=== PATIENT | male | born 1955 | race Hispanic/Latino ===

== ENCOUNTER 2017-08-20 12:31 | Outpatient (CLI) | payer MEDICARE ==
--- NOTE | 2017-08-20 14:04 | ULT ---
BILATERAL UPPER EXTREMITY VASCULAR DOPPLER ULTRASOUND: Date: 08/20/17 HISTORY: Vein mapping for dialysis access. TECHNIQUE: Multiplanar Atkins scale sonographic imaging of the upper extremity vascular structures obtained with color flow and spectral analysis as detailed below. FINDINGS: Right internal jugular vein is patent and contains a dialysis catheter. Bandaging material over the right subclavian vein region slightly limits detailed assessment. Visualized portions of right subcl jesse vein appear patent. Right axillary vein is patent as well. Left internal jugular vein, subclavian vein, and axillary vein are patent as well. VESSEL DIAMETER (mm) Right Brachial Artery 3.2 Right Radial Artery 2.9 Right Ulnar Artery 2.8 Left Brachial Artery 4.3 Left Radial Artery 2.6 Left Ulnar Artery 2.9 RIGHT CEPHALIC VEIN: Above Elbow Proximal Nonvisualized Above Elbow Mid Nonvisualized Above Elbow Distal Nonvisualized At Elbow Nonvisualized Below Elbow Proximal 1.2 Below Elbow Mid 1.9 Below Elbow Distal Nonvisualized RIGHT BASILIC VEIN: Above Elbow Proximal 2.7 Above Elbow Mid 2.5 Above Elbow Distal 2.2 At Elbow Nonvisualized Below Elbow Proximal Nonvisualized Below Elbow Mid Nonvisualized Below Elbow Distal Nonvisualized LEFT BASILIC VEIN: Above Elbow Proximal 3.2 Above Elbow Mid 2.3 Above Elbow Distal 2.9 At Elbow Nonvisualized Below Elbow Proximal Nonvisualized Below Elbow Mid Nonvisualized Below Elbow Distal Nonvisualized LEFT CEPHALIC VEIN: Above Elbow Proximal 2.0 Above Elbow Mid 1.7 Above Elbow Distal 1.6 At Elbow 1.9 Below Elbow Proximal 1.2 Below Elbow Mid Nonvisualized Below Elbow Distal Nonvisualized IMPRESSION: Upper extremity vascular mapping as detailed above. POS: [facility]
== END 2017-08-20 12:32 | disposition home or self-care (01) ==
LOC: ULT 12:31
PROVIDERS: ATTEND Internal Medicine Nephrology
DX: Z01.818 Encounter for other preprocedural examination (principal); N18.6 End stage renal disease; Z99.2 Dependence on renal dialysis
CPT/HCPCS: 93970; G0365

== ENCOUNTER 2017-09-11 10:44 | Inpatient (IN) | payer MEDICARE ==
[2017-09-11 11:45] LABS: #Monocytes 0.6 thou/uL (0.11-0.59); #Neutrophils 9.2 thou/uL (1.40-6.50); %Eosinophils 0.2 % (0.0-10.0); %Lymphocytes 9.3 % (21.0-51.0); %Monocytes 5.4 % (0.0-10.0); Hematocrit 46.8 % (42.0-52.0); Mean Platelet Volume 8.4 fL (7.4-10.4); Red Blood Cell (RBC) Count 5.34 mill/uL (4.70-6.10); White Blood Cell (WBC) Count 10.8 thou/uL (4.8-10.8)
[2017-09-11] MEDS ORDERED: Dextrose 50% Abboject 50 ML SYRINGE ONE ×3 (11:59→15:03)
[2017-09-11 12:01] LABS: ALT (SGPT) 19 U/L (8-55); AST (SGOT) 16 U/L (5-34); Alkaline Phosphatase 133 U/L (40-150); Anion Gap 20 mmol/L (10-20); BUN (Urea Nitrogen) 92 mg/dL (8.4-25.7); Bilirubin, Total 0.2 mg/dL (0.2-1.2); Calc. Creatinine Clearance 0 mL/min (70-130); Calcium 9.9 mg/dL (7.8-10.44); Carbon Dioxide 12 mmol/L (23-31); Chloride 103 mmol/L (98-107); Estimated GFR-MDRD 5; Globulin 4.9 g/dL (2.4-3.5); Protein, Total 8.6 g/dL (5.8-8.1)
[2017-09-11] MEDS ORDERED: Sodium Bicarb 50 MEQ/50 ML Abboject 8.4% SYRINGE ONE ×2 (12:35→12:37)
[2017-09-11] MEDS ORDERED: Insulin Regular 300 UNITS/3 ML VIAL ONE (12:35)
--- NOTE | 2017-09-11 14:45 | RAD ---
PORTABLE AP CHEST: Date: 09-11-17 History: Altered mental status post hyperglycemia. Comparison: 07-21-17 FINDINGS: Right internal jugular and hemodialysis catheter remains in place. Cardiac silhouette and pulmonary vasculature are within normal limits. Artifact overlies the chest, but the lungs appear grossly brian r. There has been no interval change from the prior exam. IMPRESSION: No acute cardiopulmonary process. POS: [facility]
--- NOTE | 2017-09-11 15:57 | HP ---
PRIMARY CARE PHYSICIAN: Dr. Gregg Robbins. REASON FOR ADMISSION: Hypoglycemia, hyperkalemia. HISTORY OF PRESENT ILLNESS: A 62-year-old male who has history of end-stage renal disease on hemodialysis Sunday, , and Sunday, who was brought to the emergency room for low blood sugar and hyperkalemia. This patient was supposed to get dialysis at 11:00 a.m. today, but he was found down at his home. His blood sugar was low. Paramedics gave him 1 ampule of D10 after that hi s blood sugar improved to 110s. Subsequently, when he came to emergency room, his blood sugar again dropped to 70s and subsequently 50s. He required a total of 3 ampules of D50. Routine blood test also showed hyperkalemia. I spoke with the patient's sister who is main medicine tech for this particular patient, who reports teofilo t about 2 weeks ago the patient was given new diabetes pills and patient was taking half tablet ever y day. The patient did not miss his lunch or break. He does not have any fever, chills, nausea, vomiting, diarrhea and abdominal pain. He did not have any chest pain, palpitation, cough or flu-like illness. REVIEW OF SYSTEMS: The following complete review of systems was negative, unless otherwise mentione d in the HPI or below: CONSTITUTIONAL: Weight loss or gain, ability to conduct usual activities. SKIN: Rash, itching. EYES: Double vision, pain. ENT/MOUTH: Nose bleeding, neck stiffness, pain, tenderness. CARDIOVASCULAR: Palpitations, dyspnea on exertion, orthopnea. RESPIRATORY: Shortness of breath, wheezing, cough, hemoptysis, fever or night sweats. GASTROINTESTINAL: Poor appetite, abdominal pain, heartburn, nausea, vomiting, constipation, or diar charley. GENITOURINARY: Urgency, frequency, dysuria, nocturia. MUSCULOSKELETAL: Pain, swelling. NEUROLOGIC/PSYCHIATRIC: Anxiety, depression. ALLERGY/IMMUNOLOGIC: Skin rash, bleeding tendency. Please see my HPI for pertinent positives and negatives. All other review of system reviewed and ne gative except as mentioned in the HPI. PAST MEDICAL HISTORY: ESRD on hemodialysis Sunday, , and Sunday, chronic diastolic heart failure, peripheral vascular disease, anemia of renal disease, diabetes type 2, hypertension. PAST SURGICAL HISTORY: Right below-knee amputation, right side chest tunneled hemodialysis catheter placement, colostomy. PAST PSYCHIATRIC HISTORY: Anxiety and depression. ALLERGIES: No known drug allergy. FAMILY HISTORY: Diabetes runs among several family members. No strong family history of premature coronary artery disease, stroke or cancer. SOCIAL HISTORY: Patient lives at home with his sister. No history of tobacco, alcohol or illicit d rug abuse. CURRENT HOME MEDICATIONS: Zoloft 25 mg p.o. daily, Lipitor 40 mg p.o. at bedtime, midodrine 5 mg 3 times daily, lisinopril 2.5 mg daily, Iron 65 mg twice daily, metoprolol tartrate 25 mg p.o. b.i.d., Reglan 10 mg twice daily and patient does not know the name of diabetes pill, but it was started re cently. EMERGENCY ROOM COURSE: Patient has received dextrose 50% 3 ampule, calcium gluconate 1 ampule, sodi um bicarbonate 50 mEq and Humulin R 10 unit. PHYSICAL EXAMINATION: VITAL SIGNS: On arrival, blood pressure 141/81, pulse 89, respiratory rate 20, temperature 97.6, sa turation 96% on room air. Weight 58.9 kilograms. GENERAL: Patient is currently alert, awake, follows command, no obvious acute distress. HEAD: Normocephalic, atraumatic. EYES: Pupils round, reactive to light. Extraocular muscles intact. ENT: Oropharynx within normal limits. Moist mucous membranes. No oral lesions. No pharyngeal ruth thema, no exudate. NECK: Supple. Range of motion is normal. No meningeal signs of irritation. LUNGS: Clear to auscultation without any rhonchi or rales. CARDIAC: S1, S2 regular without any murmur. ABDOMEN: Soft, bowel sounds present, nontender, nondistended. No peritoneal sign. BACK: Unremarkable, no CVA tenderness. EXTREMITIES: Upper extremity: Passive movement of all joints are normal. Lower extremity: Right below knee amputation. Left lower extremity within normal limits. NEUROLOGIC: Grossly nonfocal examination. He is moving all 4 limbs. SKIN: No skin rash. HEMATOLOGIC: No lymphadenopathy. PSYCHIATRIC: Normal affect. SIGNIFICANT LABS: 1. EKG based on my review, normal sinus rhythm, first degree AV block, T-wave peaked. 2. CBC: WBC 10.8, hemoglobin 14.1, platelet 285 with a left shift. BMP: Sodium 127, potassium 7. 9, chloride 103, carbon dioxide 12, anion gap 20, BUN 92, creatinine 10.45, glucose 77 and calcium 9 .9. 3. LFT: AST 16, ALT 19, alkaline phosphatase 133, albumin 3.7. IMAGING: Chest x-ray based on my review, no acute cardiopulmonary process. ASSESSMENT AND PLAN/IMPRESSION: 1. Acute metabolic encephalopathy likely due to hypoglycemia, currently resolved after treatment fo r hypoglycemia. 2. Hypoglycemia associated with diabetes type, secondary to oral diabetic medication. At this poin t, we will watch for hypoglycemia. We will monitor Accu-Chek every couple of hours and as needed ba sis. If blood sugar drops below 70, then we will consider giving him D50. We will avoid any diabet es medication. 3. Hyperkalemia due to decreased renal excretion secondary to end-stage renal disease. Dr. Chadwick is consulted and patient will be taken for hemodialysis. We will repeat BMP tomorrow. The patient is also taking lisinopril that medication will be discontinued and instead will change to amlodipine. 4. Dyslipidemia. We will continue Lipitor 40 mg p.o. at bedtime. 5. Hypertension, labile. We will discontinue lisinopril because of hyperkalemia and instead will s tart amlodipine 2.5 mg p.o. daily. We will continue metoprolol 25 mg twice daily. 6. Anxiety and depression. We will continue Zoloft 25 mg p.o. daily. 7. Anemia of renal disease. Currently, hemoglobin is stable. 8. Metabolic acidosis, likely due to renal failure. 9. Hyponatremia, likely due to renal failure. 10. Deep venous thrombosis prophylaxis not needed because we are expecting discharge in 24 hours. 11. Gastrointestinal prophylaxis, Protonix 40 mg p.o. daily. 12. CODE STATUS: The patient is FULL CODE. Patient's sister is the surrogate decision maker. Disposition plan based on clinical course, likely within 24 hours.
[2017-09-11 16:35] LABS: ALT (SGPT) 20 U/L (8-55); AST (SGOT) 17 U/L (5-34); Alkaline Phosphatase 114 U/L (40-150); Anion Gap 19 mmol/L (10-20); BUN (Urea Nitrogen) 94 mg/dL (8.4-25.7); Bilirubin, Total 0.2 mg/dL (0.2-1.2); Calc. Creatinine Clearance 0 mL/min (70-130); Calcium 10.4 mg/dL (7.8-10.44); Carbon Dioxide 14 mmol/L (23-31); Chloride 103 mmol/L (98-107); Estimated GFR-MDRD 5; Globulin 4.4 g/dL (2.4-3.5); Protein, Total 7.9 g/dL (5.8-8.1)
[2017-09-11] MEDS ORDERED: Chloraseptic Spray 180 ml Bottle PO PRN (18:18)
[2017-09-11] MEDS ORDERED: Ondansetron HCl/PF 4 MG/2 ML Vial IVP PRN (18:18)
[2017-09-11] MEDS ORDERED: Artificial Tear Sol 15 ML BOT EA EYE PRN (18:18)
[2017-09-11] MEDS ORDERED: Milk Of Magnesia 30 ML UDCUP PO PRN (18:18)
[2017-09-11] MEDS ORDERED: Loperamide HCl 2 MG CAP PO PRN (18:18)
[2017-09-11] MEDS ORDERED: Dextrose 5% in Water 1,000 ML IV PRN (18:18)
[2017-09-11] MEDS ORDERED: Nitroglycerin 0.4 MG TAB (25 Tab Bottle) SL PRN (18:18)
[2017-09-11] MEDS ORDERED: Sodium Chloride 0.65% Nasal 44 ML BOT EA NARE PRN (18:18)
[2017-09-11] MEDS ORDERED: Loratadine 10 MG TAB PO PRN (18:18)
[2017-09-11] MEDS ORDERED: Eucerin (Mineral Oil/Petrolatum,White) 30 gm Jar TOP PRN (18:18)
[2017-09-11] MEDS ORDERED: Senokot 8.6 MG TAB PO PRN (18:18)
[2017-09-11] MEDS ORDERED: Acetaminophen 325 MG TAB PO PRN (18:18)
[2017-09-11] MEDS ORDERED: Mag-Al 1200 mg/1200 mg/30 ML UDCUP PO PRN (18:18)
[2017-09-11] MEDS ORDERED: hydrALAZINE 20 MG/ML VIAL SLOW IVP PRN (18:18)
[2017-09-11] MEDS ORDERED: Dextrose 50% Abboject 50 ML SYRINGE SLOW IVP PRN (18:18)
[2017-09-11] MEDS ORDERED: Diabetic Tussin 200 MG/10 ML UDCUP PO PRN (18:18)
[2017-09-11] MEDS ORDERED: Ondansetron ODT 4 MG TAB PO PRN (18:18)
[2017-09-11] MEDS ORDERED: Calcium Carbonate 500 MG ChewTAB PO PRN (18:18)
[2017-09-11] MEDS ORDERED: Metoclopramide HCl 10 MG TAB PO PRN (18:18)
--- NOTE | 2017-09-11 20:26 | CON ---
DATE OF CONSULTATION: 09/11/2017 CONSULTING PHYSICIAN: Dr. Gonsalez. REASON FOR CONSULTATION: Hyperkalemia, end-stage renal disease. REASON FOR ADMISSION: Hyperglycemia. HISTORY OF PRESENT ILLNESS: A 62-year-old male with history of end-stage renal disease, CH F, peripheral vascular disease, who came to the hospital with hypertension. The patient was not wak ing up per the family this morning. He is due for dialysis Sunday, , and Sunday, and the salt cutter consult for maintenance hemodialysis. The patient is feeling better, no nausea, vomit ing, or chest pain. He said he has been eating well. No skin rash. PAST MEDICAL HISTORY: Positive for end-stage renal disease, CHF, peripheral vascular disease, anemi a, type 2 diabetes, hypertension. PAST SURGICAL HISTORY: Right [id number] amputation and dialysis access placement, colostomy. HOME MEDICATIONS: Zoloft, Lipitor, midodrine, lisinopril, iron, Reglan. ALLERGIES: No known drug allergies. SOCIAL HISTORY: No smoking, alcohol or illicit drug abuse. FAMILY HISTORY: No significant history. REVIEW OF SYSTEMS: The following complete review of systems was negative, unless otherwise mentione d in the HPI or below: Constitutional: Weight loss or gain, ability to conduct usual activities. Skin: Rash, itching. Eyes: Double vision, pain. ENT/Mouth: Nose bleeding, neck stiffness, pain, tenderness. Cardiovas cular: Palpitations, dyspnea on exertion, orthopnea. Respiratory: Shortness of breath, wheezing, cough, hemoptysis, fever or night sweats. Gastrointestinal: Poor appetite, abdominal pain, heartbu rn, nausea, vomiting, constipation, or diarrhea. Genitourinary: Urgency, frequency, dysuria, noctu mya. Musculoskeletal: Pain, swelling. Neurologic/Psychiatric: Anxiety, depression. Allergy/Immu nologic: Skin rash, bleeding tendency. PHYSICAL EXAMINATION: GENERAL: This is a well-built male in no apparent distress. VITAL SIGNS: Temperature 95.6, pulse 89, respiratory rate 20, blood pressure 141/81. HEENT: Atraumatic, normocephalic. Oral mucosa is moist. NECK: Supple, no masses. CARDIOVASCULAR: S1, S2 heard. Rate and rhythm regular. RESPIRATORY: Clear. ABDOMEN: Soft. MUSCULOSKELETAL: No tenderness. No edema. DERMATOLOGIC: No skin rash. NEUROLOGIC: Alert and awake. PSYCHIATRIC: Mood and affect normal. LABORATORY AND X-RAY FINDINGS: Hemoglobin is 14.1, potassium is 7.5, BUN is 94, creatinine is 7.8. ASSESSMENT AND PLAN: 1. End-stage renal disease with hyperkalemia. Plan is to have emergent dialysis. 2. Severe hyperkalemia. We will have emergent dialysis. 3. Hyponatremia. 4. Hyperglycemia. 5. Hypertension, stable. 6. Hypoalbuminemia. 7. Anemia as tolerated if hemoglobin is less than 10. Plan is to have emergent dialysis. Dialysis nurse notified. We will keep patient in IMCU and close ly monitor while dialysis and we will follow. Thank you for the consultation.
[2017-09-11] MEDS: Atorvastatin Calcium 40 MG TAB PO SCH ×2 (21:18→23:58)
[2017-09-11] MEDS: Metoprolol Tartrate 25 MG TAB PO SCH ×2 (21:19→23:58)
[2017-09-11] MEDS: Midodrine HCl 5 MG TAB PO SCH (21:19)
[2017-09-12 05:04] LABS: #Eosinphils 0.1 thou/uL (0.0-0.7); #Lymphocytes 1.3 thou/uL (1.20-3.40); #Monocytes 0.7 thou/uL (0.11-0.59); #Neutrophils 5.2 thou/uL (1.40-6.50); %Basophils 0.4 % (0.0-1.0); %Eosinophils 1.2 % (0.0-10.0); %Lymphocytes 18.1 % (21.0-51.0); %Monocytes 9.6 % (0.0-10.0); Hematocrit 37.3 % (42.0-52.0); Mean Platelet Volume 8.1 fL (7.4-10.4); Red Blood Cell (RBC) Count 4.39 mill/uL (4.70-6.10); White Blood Cell (WBC) Count 7.4 thou/uL (4.8-10.8)
[2017-09-12 05:15] LABS: Anion Gap 16 mmol/L (10-20); BUN (Urea Nitrogen) 42 mg/dL (8.4-25.7); BUN/Creatinine Ratio 6.75; Calc. Creatinine Clearance 11 mL/min (70-130); Carbon Dioxide 20 mmol/L (23-31); Chloride 99 mmol/L (98-107); Estimated GFR-MDRD 9; Phosphorus 3.5 mg/dL (2.3-4.7)
[2017-09-12] MEDS: Midodrine HCl 5 MG TAB PO SCH ×4 (08:42→21:11)
[2017-09-12] MEDS: Metoprolol Tartrate 25 MG TAB PO SCH ×2 (08:42→21:11)
[2017-09-12] MEDS ORDERED: FLU VACC QS2017-18 36 mo. & older 0.5 ML SYRINGE IM ONE (09:00)
[2017-09-12] MEDS: Amlodipine 5 MG TAB PO SCH (10:21)
--- NOTE | 2017-09-12 10:57 | PDOC.PN ---
- Subjective Encounter Start Date: 09/12/17 Encounter Start Time: 08:45 -: old records requested/rev Pt seen and exmained, chart reviewe din its entirety, this is my first visit with this patient admitted yesterday for SOB, AMs, hyperkalemia. PT tells me today he hadmissed HD. HD yesterday, labs better today, to HD this morning. Pt awkae, alert and oriented x 3. breathing markedly better. Got Calcium gluconate, nebs, insulin in ER for elevated K+, remained hypoglycemic all day yesterday, on D5 drip. today, glucose much better. No F/C, no N/V/d/C, no cP or SOB, no cough and no GI/resp bleeding. 10 point ROS performed and neg for all systems except as per HPI - Objective Resuscitation Status: Resuscitation Status FULL:Full Resuscitation MAR Reviewed: Yes Vital Signs & Weight: Vital Signs (12 hours) Temp Pulse Resp BP Pulse Ox 09/12/17 10:21 86 09/12/17 08:00 98.0 F 86 20 100 09/12/17 04:00 98.0 F 86 20 99/55 L 100 09/12/17 00:00 97.8 F 91 22 H 100/65 100 Weight Weight 145 lb 3 oz I&O: 09/11/17 09/12/17 09/13/17 06:59 06:59 06:59 Intake Total 240 Output Total 450 Balance -210 Result Diagrams: 09/12/17 04:23 09/12/17 04:23 Additional Labs: Accuchecks 09/12/17 09/12/17 09/12/17 08:34 05:43 04:03 POC Glucose 101 96 137 H 09/12/17 09/12/17 09/11/17 02:07 00:08 22:19 POC Glucose 110 103 96 09/11/17 20:59 POC Glucose 94 Radiology Reviewed by me: Yes EKG Reviewed by me: Yes Phys Exam - Physical Examination Constitutional: NAD HEENT: PERRLA, moist MMs, sclera anicteric, oral pharynx no lesions Neck: no nodes, no JVD, supple, full ROM Respiratory: no wheezing, no rhonchi, clear to auscultation bilateral faint bibasilar rales Cardiovascular: RRR, no significant murmur, no rub Gastrointestinal: soft, non-tender, no distention, positive bowel sounds Musculoskeletal: no edema, pulses present Neurological: non-focal, normal sensation, moves all 4 limbs Lymphatic: no nodes Psychiatric: normal affect, A&O x 3 Skin: no rash, normal turgor, cap refill <2 seconds Dx/Plan (1) Acute hypoxemic respiratory failure Code(s): J96.01 - ACUTE RESPIRATORY FAILURE WITH HYPOXIA Status: Acute Plan: 100% on 2L NC, wean (2) Noncompliance with renal dialysis Code(s): Z91.15 - PATIENT'S NONCOMPLIANCE WITH RENAL DIALYSIS Status: Acute Comment: HD yesterdya adn today, volume better, electrolytes almost normalized (3) HTN (hypertension) Code(s): I10 - ESSENTIAL (PRIMARY) HYPERTENSION Status: Chronic Qualifiers: Hypertension type: essential hypertension Qualified Code(s): I10 - Essential (primary) hypertension (4) Pressure ulcer of sacral region, stage 4 Code(s): L89.154 - PRESSURE ULCER OF SACRAL REGION, STAGE 4 Status: Acute Comment: improved, present on admit. CCM with wound care. Sacral. Listed as stage III, but once present, will always be a stage IV. Even after it is healed. (5) Uncontrolled diabetes mellitus Code(s): E11.65 - TYPE 2 DIABETES MELLITUS WITH HYPERGLYCEMIA Status: Chronic Qualifiers: Diabetes mellitus type: type 2 Diabetes mellitus complication status: with circulatory complication Diabetes mellitus complication detail: with other circulatory complications Diabetes mellitus half-way insulin use: with half-way use Qualified Code(s): E11.59 - Type 2 diabetes mellitus with other circulatory complications; E11.65 - Type 2 diabetes mellitus with hyperglycemia ; E11.65 - Type 2 diabetes mellitus with hyperglycemia; E11.65 - Type 2 diabetes mellitus with hyperglycemia; E11.65 - Type 2 diabetes mellitus with hyperglycemia; Z79.4 - senior care (current) use of insulin; Z79.4 - senior care ( current) use of insulin; Z79.4 - [employer] (current) use of insulin; Z79.4 - senior care (current) use of insulin (6) ESRD (end stage renal disease) on dialysis Code(s): N18.6 - END STAGE RENAL DISEASE; Z99.2 - DEPENDENCE ON RENAL DIALYSIS Status: Chronic (7) Peripheral vascular disease Code(s): I73.9 - PERIPHERAL VASCULAR DISEASE, UNSPECIFIED Status: Chronic (8) Hyperkalemia Code(s): E87.5 - HYPERKALEMIA Status: Resolved - Plan cont current plan of care * .
[2017-09-12] MEDS: Dextrose 10% in Water 1,000 ML IV SCH (15:47)
--- NOTE | 2017-09-12 16:10 | PRG ---
DATE OF SERVICE: 09/12/2017 SUBJECTIVE: Patient was seen and examined at bedside and overnight events noted. Patient denies an y shortness of breath or chest pain or palpitation. No history of nausea or vomiting or diarrhea or fever or chills or cramps. OBJECTIVE: GENERAL: This is a well-built male in no apparent distress. VITAL SIGNS: Temperature 98.4, pulse 91, respiratory rate 18, blood pressure 109/59. HEENT: Atraumatic, normocephalic. Oral mucosa is moist. NECK: Supple. CARDIOVASCULAR: S1 and S2 heard, rate and rhythm regular. RESPIRATORY: Clear to auscultation. GASTROINTESTINAL: Abdomen is soft. MUSCULOSKELETAL: No tenderness, no edema. DERMATOLOGIC: No skin rash. NEUROLOGIC: Alert and awake and oriented X3. No focal neurologic deficits. Moving all the extremi ties. PSYCHIATRIC: Mood and affect normal. LABORATORY DATA: Potassium is 5.4, BUN is 42, creatinine is 6.2. ASSESSMENT AND PLAN: 1. End-stage renal disease. We will have dialysis today. 2. Hyperkalemia, had dialysis today. Limit potassium. 3. Hyponatremia. 4. Hyperglycemia. We will continue on dialysis as tolerated.
[2017-09-12] MEDS ORDERED: Sodium Chloride 0.9% 10 ML ONE (19:45)
[2017-09-12] MEDS: Atorvastatin Calcium 40 MG TAB PO SCH (21:11)
[2017-09-13] MEDS: Dextrose 10% in Water 1,000 ML IV SCH ×2 (04:23→20:58)
[2017-09-13 05:18] LABS: #Basophils 0.1 thou/uL (0.0-0.2); #Eosinphils 0.2 thou/uL (0.0-0.7); #Lymphocytes 1.5 thou/uL (1.20-3.40); #Monocytes 0.7 thou/uL (0.11-0.59); %Basophils 1.9 % (0.0-1.0); %Eosinophils 3.8 % (0.0-10.0); %Lymphocytes 26.5 % (21.0-51.0); %Monocytes 13.2 % (0.0-10.0); Hematocrit 38.6 % (42.0-52.0); Mean Platelet Volume 8.2 fL (7.4-10.4); Red Blood Cell (RBC) Count 4.54 mill/uL (4.70-6.10); White Blood Cell (WBC) Count 5.5 thou/uL (4.8-10.8)
[2017-09-13 05:32] LABS: Anion Gap 16 mmol/L (10-20); BUN (Urea Nitrogen) 38 mg/dL (8.4-25.7); Calc. Creatinine Clearance 12 mL/min (70-130); Calcium 8.6 mg/dL (7.8-10.44); Carbon Dioxide 18 mmol/L (23-31); Chloride 99 mmol/L (98-107); Estimated GFR-MDRD 9
[2017-09-13] MEDS: Midodrine HCl 5 MG TAB PO SCH ×3 (08:13→20:00)
[2017-09-13] MEDS: Amlodipine 5 MG TAB PO SCH (08:30)
[2017-09-13] MEDS: Metoprolol Tartrate 25 MG TAB PO SCH ×2 (08:30→20:00)
--- NOTE | 2017-09-13 10:09 | PDOC.PN ---
- Subjective Encounter Start Date: 09/13/17 Encounter Start Time: 08:00 Pt back in dialysis today for full treatment, plan to remove 1900cc UF. No F/C , no n/V/D/C, no CP, no SOB, accuchecks normal and stabilized. 10 point ROS performed and neg except as above - Objective Resuscitation Status: Resuscitation Status FULL:Full Resuscitation MAR Reviewed: Yes Vital Signs & Weight: Vital Signs (12 hours) Temp Pulse Resp BP Pulse Ox 09/13/17 04:20 97.6 F 69 16 149/74 H 100 09/13/17 04:17 100 09/13/17 00:00 97.9 F 70 16 136/65 100 Weight Admit Weight 144 lb 6.4 oz Weight 159 lb 11.2 oz I&O: 09/12/17 09/13/17 09/14/17 06:59 06:59 06:59 Intake Total 240 1580 Output Total 450 925 Balance -210 655 Result Diagrams: 09/13/17 04:52 09/13/17 04:52 Additional Labs: Accuchecks 09/13/17 09/13/17 09/12/17 04:25 00:03 20:26 POC Glucose 148 H 179 H 121 H 09/12/17 16:40 POC Glucose 126 H Radiology Reviewed by me: Yes EKG Reviewed by me: Yes Phys Exam - Physical Examination Constitutional: NAD HEENT: PERRLA, moist MMs, sclera anicteric, oral pharynx no lesions Neck: no nodes, no JVD, supple, full ROM Respiratory: no wheezing, no rales, no rhonchi, clear to auscultation bilateral Cardiovascular: RRR, no significant murmur, no rub Gastrointestinal: soft, non-tender, no distention, positive bowel sounds Musculoskeletal: no edema, pulses present right BKA Neurological: non-focal, normal sensation Lymphatic: no nodes Psychiatric: normal affect, A&O x 3 Skin: no rash, normal turgor, cap refill <2 seconds Deviation from normal: [facility] C/D/I Dx/Plan (1) Acute hypoxemic respiratory failure Code(s): J96.01 - ACUTE RESPIRATORY FAILURE WITH HYPOXIA Status: Resolved Comment: likely fluid overload (2) Noncompliance with renal dialysis Code(s): Z91.15 - PATIENT'S NONCOMPLIANCE WITH RENAL DIALYSIS Status: Acute Comment: HD now on third day in a row, normal session today. Volume better, electrolytes almost normalized, K+ 5.2, sodium low (3) HTN (hypertension) Code(s): I10 - ESSENTIAL (PRIMARY) HYPERTENSION Status: Chronic Qualifiers: Hypertension type: essential hypertension Qualified Code(s): I10 - Essential (primary) hypertension (4) Pressure ulcer of sacral region, stage 4 Code(s): L89.154 - PRESSURE ULCER OF SACRAL REGION, STAGE 4 Status: Acute Comment: improved, present on admit. [facility] with wound care. Sacral. Listed as stage III, but once present, will always be a stage IV. Even after it is healed. 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 [employer] insulin use: with equipment operator [employer] yard use Qualified Code(s): E11.59 - Type 2 diabetes mellitus with other circulatory complications; E11.65 - Type 2 diabetes mellitus with hyperglycemia ; E11.65 - Type 2 diabetes mellitus with hyperglycemia; E11.65 - Type 2 diabetes mellitus with hyperglycemia; E11.65 - Type 2 diabetes mellitus with hyperglycemia; Z79.4 - equipment [employer] (current) use of insulin; Z79.4 - equipment operator intermodal yard ( current) use of insulin; Z79.4 - equipment operator intermodal yard (current) use of insulin; Z79.4 - equipment operator intermodal yard (current) use of insulin Comment: sugars normal, back of to AC/HS. (6) ESRD (end stage renal disease) on dialysis Code(s): N18.6 - END STAGE RENAL DISEASE; Z99.2 - DEPENDENCE ON RENAL DIALYSIS Status: Chronic (7) Peripheral vascular disease Code(s): I73.9 - PERIPHERAL VASCULAR DISEASE, UNSPECIFIED Status: Chronic (8) Hyperkalemia Code(s): E87.5 - HYPERKALEMIA Status: Resolved Comment: 5.2 today - Plan cont current plan of care * .
[2017-09-13] MEDS: Atorvastatin Calcium 40 MG TAB PO SCH (20:00)
--- NOTE | 2017-09-13 20:50 | PRG ---
DATE OF SERVICE: 09/13/2017 SUBJECTIVE: Patient was seen and examined at bedside and overnight events noted. Patient denies an y shortness of breath or chest pain or palpitation. No history of nausea or vomiting or diarrhea or fever or chills or cramps. OBJECTIVE: GENERAL: This is a well-built male, in no apparent distress. VITAL SIGNS: Temperature 97.6, pulse 69, respirations 16, blood pressure 149/74. HEENT: Atraumatic, normocephalic. Oral mucosa is moist. NECK: Supple CARDIOVASCULAR: S1, S2 heard. Rate and rhythm regular. RESPIRATORY: Clear to auscultation GASTROINTESTINAL: Abdomen is soft MUSCULOSKELETAL: No tenderness. No edema. DERMATOLOGIC: No skin rash. NEUROLOGIC: Alert and awake and oriented X3. No focal neurologic deficits. Moving all the extremi ties. PSYCHIATRIC: Mood and affect normal. LABORATORY DATA: Potassium is 5.2, BUN is 38, creatinine is 6.2. ASSESSMENT AND PLAN: 1. End-stage renal disease, on hemodialysis. Plan is to continue on dialysis. 2. Hyperkalemia. We will have a dialysis. 3. Hyponatremia. . 4. Hyperglycemia. Overall, plan is to continue on dialysis as tolerated.
[2017-09-14 05:38] LABS: #Eosinphils 0.3 thou/uL (0.0-0.7); #Lymphocytes 1.6 thou/uL (1.20-3.40); #Monocytes 0.7 thou/uL (0.11-0.59); #Neutrophils 3.7 thou/uL (1.40-6.50); %Eosinophils 4.1 % (0.0-10.0); %Lymphocytes 25.4 % (21.0-51.0); %Monocytes 10.8 % (0.0-10.0); Hematocrit 41.8 % (42.0-52.0); Mean Platelet Volume 8.5 fL (7.4-10.4); Red Blood Cell (RBC) Count 4.91 mill/uL (4.70-6.10); White Blood Cell (WBC) Count 6.2 thou/uL (4.8-10.8)
[2017-09-14 05:45] LABS: Anion Gap 13 mmol/L (10-20); BUN (Urea Nitrogen) 29 mg/dL (8.4-25.7); BUN/Creatinine Ratio 5.53; Calc. Creatinine Clearance 15 mL/min (70-130); Calcium 8.7 mg/dL (7.8-10.44); Carbon Dioxide 21 mmol/L (23-31); Chloride 96 mmol/L (98-107); Estimated GFR-MDRD 11
--- NOTE | 2017-09-14 09:29 | PRG ---
DATE OF SERVICE: 09/14/2017 SUBJECTIVE: Patient was seen and examined at bedside and overnight events noted. Patient denies an y shortness of breath or chest pain or palpitation. No history of nausea or vomiting or diarrhea or fever or chills or cramps. OBJECTIVE: GENERAL: This is a well built male, in no apparent distress. VITAL SIGNS: Temperature 97.9, pulse 72, respiratory rate 14, blood pressure 163/78. HEENT: Atrauma tic, normocephalic. Oral mucosa is moist. NECK: Supple. CARDIOVASCULAR: S1, S2 heard. Rate and rhythm regular. RESPIRATORY: Clear to auscultation. GASTROINTESTINAL: Abdomen is soft. MUSCULOSKELETAL: No tenderness, no edema. DERMATOLOGIC: No skin rash. NEUROLOGIC: Alert and awake and oriented x3. No focal neurologic deficits. Moving all the extremi ties. PSYCHIATRIC: Mood and affect normal. LABORATORY DATA: Potassium is 4.9, BUN 29, creatinine 4.2. ASSESSMENT AND PLAN: 1. End-stage renal disease on dialysis. We will continue on dialysis, TTS as tolerated. 2. Hyponatremia, limit fluid. 3. Hyperkalemia, better. 4. Hypoglycemia. 5. We will continue on dialysis as tolerated.
[2017-09-14] MEDS: Amlodipine 5 MG TAB PO SCH (09:33)
[2017-09-14] MEDS: Metoprolol Tartrate 25 MG TAB PO SCH ×2 (09:34→20:15)
[2017-09-14] MEDS: Midodrine HCl 5 MG TAB PO SCH ×3 (09:34→20:15)
--- NOTE | 2017-09-14 12:54 | PDOC.PN ---
- Subjective Encounter Start Date: 09/14/17 Encounter Start Time: 10:30 Subjective: no sob, is awake and oriented -: no chest pain or palp - Objective Resuscitation Status: Resuscitation Status FULL:Full Resuscitation MAR Reviewed: Yes Vital Signs & Weight: Vital Signs (12 hours) Temp Pulse Resp BP Pulse Ox 09/14/17 11:30 98.6 F 75 16 165/86 H 99 09/14/17 09:33 72 09/14/17 07:50 97.9 F 72 14 174/85 H 99 09/14/17 04:00 97.6 F 70 20 163/78 H 98 09/14/17 02:42 98 Weight Admit Weight 144 lb 6.4 oz Weight 160 lb 2 oz I&O: 09/13/17 09/14/17 09/15/17 06:59 06:59 06:59 Intake Total 1580 2040 Output Total 925 3500 Balance 655 -1460 Result Diagrams: 09/14/17 05:00 09/14/17 05:00 Additional Labs: Accuchecks 09/14/17 09/14/17 09/14/17 08:10 04:37 00:06 POC Glucose 128 H 117 H 149 H 09/13/17 09/13/17 21:04 17:09 POC Glucose 162 H 187 H Phys Exam - Physical Examination HEENT: PERRLA, moist MMs Neck: no JVD, supple Respiratory: no wheezing, no rales Cardiovascular: RRR, no significant murmur Gastrointestinal: soft, non-tender, positive bowel sounds Musculoskeletal: pulses present right bka Neurological: non-focal, moves all 4 limbs Psychiatric: A&O x 3 Dx/Plan (1) Volume overload Code(s): E87.70 - FLUID OVERLOAD, UNSPECIFIED Status: Acute (2) Noncompliance with renal dialysis Code(s): Z91.15 - PATIENT'S NONCOMPLIANCE WITH RENAL DIALYSIS Status: Acute (3) Hyponatremia Code(s): E87.1 - HYPO-OSMOLALITY AND HYPONATREMIA Status: Acute (4) Normocytic anemia Code(s): D64.9 - ANEMIA, UNSPECIFIED Status: Chronic (5) Pressure ulcer of sacral region, stage 4 Code(s): L89.154 - PRESSURE ULCER OF SACRAL REGION, STAGE 4 Status: Chronic (6) Diabetes mellitus type 2 in nonobese Code(s): E11.9 - TYPE 2 DIABETES MELLITUS WITHOUT COMPLICATIONS Status: Chronic (7) ESRD (end stage renal disease) on dialysis Code(s): N18.6 - END STAGE RENAL DISEASE; Z99.2 - DEPENDENCE ON RENAL DIALYSIS Status: Chronic (8) HTN (hypertension) Code(s): I10 - ESSENTIAL (PRIMARY) HYPERTENSION Status: Chronic Qualifiers: Hypertension type: essential hypertension Qualified Code(s): I10 - Essential (primary) hypertension (9) Peripheral vascular disease Code(s): I73.9 - PERIPHERAL VASCULAR DISEASE, UNSPECIFIED Status: Chronic (10) Hyperkalemia Code(s): E87.5 - HYPERKALEMIA Status: Resolved - Plan dc D10 drip, encourage po intake -: watch for hypoglycemia, wound care for decub -: may tx to medical floor -: electrolytes are slowly getting corrected -: needs prosthesis for his bka to ambulate, to see his surgeon as outpt * . Review of Systems - Medications/Allergies Allergies/Adverse Reactions: Allergies Allergy/AdvReac Type Severity Reaction Status Date / Time No Known Allergies Allergy Verified 07/21/17 15:20 Medications: Current Medications Acetaminophen (Tylenol) 650 mg PO Q4H PRN PRN Reason: Headache/Fever or Pain Hydrocodone Bitart/Acetaminophen ([place] 5/325) 1 tab PO Q4H PRN PRN Reason: Moderate Pain (4-6) Al Hydroxide/Mg Hydroxide (Maalox) 30 ml PO Q6H PRN PRN Reason: Heartburn or Indigestion Amlodipine Besylate (Norvasc) 2.5 mg PO DAILY [facility] Last Admin: 09/14/17 09:33 Dose: 2.5 mg Artificial Tears (Tears Renewed 15ml Bottle) 0 drop EA EYE PRN PRN PRN Reason: Dry Eyes Atorvastatin Calcium (Lipitor) 40 mg PO HS [facility] Last Admin: 09/13/17 20:00 Dose: 40 mg Calcium Carbonate (Tums) 1,000 mg PO Q4H PRN PRN Reason: Heartburn or Indigestion Dextrose/Water (Dextrose 50%) 25 gm SLOW IVP PRN PRN PRN Reason: Hypoglycemia Glucagon (Glucagon) 1 mg IM PRN PRN PRN Reason: Hypoglycemia Guaifenesin (Robitussin Sf) 200 mg PO Q4H PRN PRN Reason: Cough Hydralazine HCl (Apresoline) 10 mg SLOW IVP Q4H PRN PRN Reason: Systolic BP > 180 Dextrose/Water (D5w) 1,000 mls @ 0 mls/hr IV .Q0M PRN; As Directed PRN Reason: Hypoglycemia Loperamide HCl (Imodium) 2 mg PO PRN PRN PRN Reason: Diarrhea/Loose Stools Loratadine (Claritin) 10 mg PO DAILYPRN PRN PRN Reason: Sinus Symptoms Magnesium Hydroxide (Milk Of Magnesium) 30 ml PO DAILYPRN PRN PRN Reason: Constipation Metoclopramide HCl (Reglan) 5 mg PO ACHS PRN PRN Reason: Nausea/Vomiting Metoprolol Tartrate (Lopressor) 25 mg PO BID [facility] Last Admin: 09/14/17 09:34 Dose: 25 mg Midodrine (Proamatine) 5 mg PO TID [facility] Last Admin: 09/14/17 09:34 Dose: 5 mg Mineral Oil/White Petrolatum (Eucerin Cream) 0 gm TOP BIDPRN PRN PRN Reason: Dry Skin Nitroglycerin (Nitrostat) 0.4 mg SL Q5MIN PRN PRN Reason: Chest Pain Ondansetron HCl (Zofran Odt) 4 mg PO Q6H PRN PRN Reason: Nausea/Vomiting Ondansetron HCl (Zofran) 4 mg IVP Q6H PRN PRN Reason: Nausea/Vomiting Pantoprazole Sodium (Protonix) 40 mg PO DAILY [facility] Last Admin: 09/14/17 09:34 Dose: 40 mg Phenol (Chloraseptic [place] 180 Ml Bot) 0 ml PO PRN PRN PRN Reason: Sore Throat Senna (Senokot) 2 tab PO HSPRN PRN PRN Reason: Constipation Sertraline HCl (Zoloft) 25 mg PO DAILY [facility] Last Admin: 09/14/17 09:34 Dose: 25 mg Sodium Chloride ([place] Nasal [place] 0.65%) 0 ml EA NARE QIDPRN PRN PRN Reason: Nasal Congestion
[2017-09-14] MEDS: Atorvastatin Calcium 40 MG TAB PO SCH (20:15)
[2017-09-15] MEDS: Amlodipine 5 MG TAB PO SCH (08:15)
[2017-09-15] MEDS: Midodrine HCl 5 MG TAB PO SCH ×3 (08:15→20:27)
[2017-09-15] MEDS: Metoprolol Tartrate 25 MG TAB PO SCH ×2 (08:15→20:26)
--- NOTE | 2017-09-15 11:06 | PDOC.PN ---
- Subjective Encounter Start Date: 09/15/17 Encounter Start Time: 08:35 Subjective: no sob or palp -: says he is eating better - Objective Resuscitation Status: Resuscitation Status FULL:Full Resuscitation MAR Reviewed: Yes Vital Signs & Weight: Vital Signs (12 hours) Temp Pulse Resp BP Pulse Ox 09/15/17 08:15 62 09/15/17 08:10 98 F 62 16 125/69 96 09/15/17 08:00 98 F 62 16 96 Weight Admit Weight 144 lb 6.4 oz Weight 165 lb 8 oz I&O: 09/14/17 09/15/17 09/16/17 06:59 06:59 05:59 Intake Total 2040 300 Output Total 3500 1100 Balance -1460 -800 Result Diagrams: 09/14/17 05:00 09/14/17 05:00 Additional Labs: Accuchecks 09/15/17 09/14/17 09/14/17 05:06 20:14 15:42 POC Glucose 63 L 162 H 129 H 09/14/17 11:22 POC Glucose 136 H Phys Exam - Physical Examination HEENT: PERRLA, moist MMs Neck: no JVD, supple Respiratory: no wheezing, no rales Cardiovascular: RRR, no significant murmur Gastrointestinal: soft, non-tender, positive bowel sounds Musculoskeletal: pulses present Neurological: non-focal, moves all 4 limbs Psychiatric: A&O x 3 Dx/Plan (1) Volume overload Code(s): E87.70 - FLUID OVERLOAD, UNSPECIFIED Status: Acute Comment: resolving (2) Noncompliance with renal dialysis Code(s): Z91.15 - PATIENT'S NONCOMPLIANCE WITH RENAL DIALYSIS Status: Acute (3) Hyponatremia Code(s): E87.1 - HYPO-OSMOLALITY AND HYPONATREMIA Status: Acute (4) Normocytic anemia Code(s): D64.9 - ANEMIA, UNSPECIFIED Status: Chronic (5) Pressure ulcer of sacral region, stage 4 Code(s): L89.154 - PRESSURE ULCER OF SACRAL REGION, STAGE 4 Status: Chronic (6) Diabetes mellitus type 2 in nonobese Code(s): E11.9 - TYPE 2 DIABETES MELLITUS WITHOUT COMPLICATIONS Status: Chronic Comment: labile (7) ESRD (end stage renal disease) on dialysis Code(s): N18.6 - END STAGE RENAL DISEASE; Z99.2 - DEPENDENCE ON RENAL DIALYSIS Status: Chronic (8) HTN (hypertension) Code(s): I10 - ESSENTIAL (PRIMARY) HYPERTENSION Status: Chronic Qualifiers: Hypertension type: essential hypertension Qualified Code(s): I10 - Essential (primary) hypertension (9) Peripheral vascular disease Code(s): I73.9 - PERIPHERAL VASCULAR DISEASE, UNSPECIFIED Status: Chronic (10) Hyperkalemia Code(s): E87.5 - HYPERKALEMIA Status: Resolved - Plan intermittent fingerstick is dropping to 60's -: is off D10 from yesterday -: labs in am, insulin and c-peptide levels -: not on any meds for dm, has to f/u with for prosthesis to ambulate -: is going for HD today, check sod level in am * . Review of Systems - Medications/Allergies Allergies/Adverse Reactions: Allergies Allergy/AdvReac Type Severity Reaction Status Date / Time No Known Allergies Allergy Verified 07/21/17 15:20 Medications: Current Medications Acetaminophen (Tylenol) 650 mg PO Q4H PRN PRN Reason: Headache/Fever or Pain Hydrocodone Bitart/Acetaminophen ([place] 5/325) 1 tab PO Q4H PRN PRN Reason: Moderate Pain (4-6) Al Hydroxide/Mg Hydroxide (Maalox) 30 ml PO Q6H PRN PRN Reason: Heartburn or Indigestion Amlodipine Besylate (Norvasc) 2.5 mg PO DAILY [facility] Last Admin: 09/15/17 08:15 Dose: Not Given Artificial Tears (Tears Renewed 15ml Bottle) 0 drop EA EYE PRN PRN PRN Reason: Dry Eyes Atorvastatin Calcium (Lipitor) 40 mg PO HS [facility] Last Admin: 09/14/17 20:15 Dose: 40 mg Calcium Carbonate (Tums) 1,000 mg PO Q4H PRN PRN Reason: Heartburn or Indigestion Dextrose/Water (Dextrose 50%) 25 gm SLOW IVP PRN PRN PRN Reason: Hypoglycemia Glucagon (Glucagon) 1 mg IM PRN PRN PRN Reason: Hypoglycemia Guaifenesin (Robitussin Sf) 200 mg PO Q4H PRN PRN Reason: Cough Hydralazine HCl (Apresoline) 10 mg SLOW IVP Q4H PRN PRN Reason: Systolic BP > 180 Dextrose/Water (D5w) 1,000 mls @ 0 mls/hr IV .Q0M PRN; As Directed PRN Reason: Hypoglycemia Loperamide HCl (Imodium) 2 mg PO PRN PRN PRN Reason: Diarrhea/Loose Stools Loratadine (Claritin) 10 mg PO DAILYPRN PRN PRN Reason: Sinus Symptoms Magnesium Hydroxide (Milk Of Magnesium) 30 ml PO DAILYPRN PRN PRN Reason: Constipation Metoclopramide HCl (Reglan) 5 mg PO ACHS PRN PRN Reason: Nausea/Vomiting Metoprolol Tartrate (Lopressor) 25 mg PO BID [facility] Last Admin: 09/15/17 08:15 Dose: Not Given Midodrine (Proamatine) 5 mg PO TID [facility] Last Admin: 09/15/17 08:15 Dose: Not Given Mineral Oil/White Petrolatum (Eucerin Cream) 0 gm TOP BIDPRN PRN PRN Reason: Dry Skin Nitroglycerin (Nitrostat) 0.4 mg SL Q5MIN PRN PRN Reason: Chest Pain Ondansetron HCl (Zofran Odt) 4 mg PO Q6H PRN PRN Reason: Nausea/Vomiting Ondansetron HCl (Zofran) 4 mg IVP Q6H PRN PRN Reason: Nausea/Vomiting Pantoprazole Sodium (Protonix) 40 mg PO DAILY [facility] Last Admin: 09/15/17 08:15 Dose: Not Given Phenol (Chloraseptic [place] 180 Ml Bot) 0 ml PO PRN PRN PRN Reason: Sore Throat Senna (Senokot) 2 tab PO HSPRN PRN PRN Reason: Constipation Sertraline HCl (Zoloft) 25 mg PO DAILY [facility] Last Admin: 09/15/17 08:15 Dose: Not Given Sodium Chloride ([place] Nasal [place] 0.65%) 0 ml EA NARE QIDPRN PRN PRN Reason: Nasal Congestion
[2017-09-15] MEDS ORDERED: Activase 2 MG VIAL CATH SCH (12:30)
[2017-09-15] MEDS ORDERED: Sterile Water 10 ML VIAL IVP SCH (12:30)
--- NOTE | 2017-09-15 15:20 | EKG ---
Test Reason : Blood Pressure : / mmHG Vent. Rate : 088 BPM Atrial Rate : 088 BPM P-R Int : 224 ms QRS Dur : 094 ms QT Int : 360 ms P-R-T Axes : 075 -17 069 degrees QTc Int : 435 ms Sinus rhythm with 1st degree A-V block Septal infarct , age undetermined No STEMI Abnormal ECG Confirmed by WALE XIONG M.D. ([id number]), editor at large VICTORIANO CAMARA ([id number] on 09/15/2017 3:20:31 PM Referred By: Confirmed By:WALE XIONG M.D.
[2017-09-15] MEDS: Atorvastatin Calcium 40 MG TAB PO SCH (20:26)
--- NOTE | 2017-09-15 23:37 | PRG ---
DATE OF SERVICE: 09/15/2017 SUBJECTIVE: Patient was seen and examined at bedside and overnight events noted. Patient denies an y shortness of breath or chest pain or palpitation. No history of nausea or vomiting or diarrhea or fever or chills or cramps. OBJECTIVE: GENERAL: This is a well-built male in no acute distress. VITAL SIGNS: Temperature 97, pulse 62, respiratory rate 16 and blood pressure 124/69. HEENT: Atraumatic and normocephalic. Oral mucosa is moist. NECK: Supple. CARDIOVASCULAR: S1 and S2 heard. Rate and rhythm regular. RESPIRATORY: Clear to auscultation. GASTROINTESTINAL: Abdomen is soft. MUSCULOSKELETAL: No tenderness. No edema. DERMATOLOGIC: No skin rash. NEUROLOGIC: Alert, awake and oriented x3. No focal neurologic deficits. Moving all the extremitie s. PSYCHIATRIC: Mood and affect normal. LABORATORY DATA: Not done today. ASSESSMENT AND PLAN: 1. End-stage renal disease, on hemodialysis. Patient was seen during dialysis catheter was not wor libia, we did a Cathflo on him and still catheter is not working. Recommend Cardiovascular Surgery c onsult for change out of catheter. 2. Hyponatremia, limit fluid intake. 3. Hyperkalemia, much better. 4. Hypoglycemia. 5. Hypertension. 6. Edema, controlled. 7. Follow up with Surgery for further of the catheter.
[2017-09-16 05:21] LABS: #Basophils 0.1 thou/uL (0.0-0.2); #Eosinphils 0.2 thou/uL (0.0-0.7); #Lymphocytes 1.3 thou/uL (1.20-3.40); #Monocytes 0.7 thou/uL (0.11-0.59); #Neutrophils 2.6 thou/uL (1.40-6.50); %Basophils 1.2 % (0.0-1.0); %Eosinophils 3.9 % (0.0-10.0); %Lymphocytes 26.7 % (21.0-51.0); %Monocytes 14.8 % (0.0-10.0); Hematocrit 36.8 % (42.0-52.0); Mean Platelet Volume 9.4 fL (7.4-10.4); Red Blood Cell (RBC) Count 4.39 mill/uL (4.70-6.10); White Blood Cell (WBC) Count 4.9 thou/uL (4.8-10.8)
[2017-09-16 05:30] LABS: ALT (SGPT) 15 U/L (8-55); AST (SGOT) 15 U/L (5-34); Alkaline Phosphatase 104 U/L (40-150); Anion Gap 15 mmol/L (10-20); BUN (Urea Nitrogen) 42 mg/dL (8.4-25.7); Bilirubin, Total 0.3 mg/dL (0.2-1.2); Calc. Creatinine Clearance 11 mL/min (70-130); Calcium 8.5 mg/dL (7.8-10.44); Carbon Dioxide 19 mmol/L (23-31); Chloride 102 mmol/L (98-107); Estimated GFR-MDRD 8; Globulin 3.8 g/dL (2.4-3.5); Protein, Total 6.7 g/dL (5.8-8.1)
[2017-09-16] MEDS: Midodrine HCl 5 MG TAB PO SCH ×3 (09:13→22:26)
[2017-09-16] MEDS: Amlodipine 5 MG TAB PO SCH (09:13)
[2017-09-16] MEDS: Metoprolol Tartrate 25 MG TAB PO SCH ×2 (09:13→22:26)
--- NOTE | 2017-09-16 11:58 | PDOC.PN ---
- Subjective Encounter Start Date: 09/16/17 Encounter Start Time: 09:00 Subjective: feels better, his HD access was not working for HD yesterday - Objective Resuscitation Status: Resuscitation Status FULL:Full Resuscitation MAR Reviewed: Yes Vital Signs & Weight: Vital Signs (12 hours) Temp Pulse Resp BP BP Pulse Ox 09/16/17 10:43 98.3 F 74 16 96 09/16/17 09:13 74 151/77 H 09/16/17 07:14 98.3 F 74 16 151/77 H 96 09/16/17 03:54 98.0 F 75 16 161/86 H 96 Weight Admit Weight 144 lb 6.4 oz Weight 167 lb 11.2 oz I&O: 09/15/17 09/16/17 09/17/17 07:59 06:59 06:59 Intake Total Output Total Balance Result Diagrams: 09/16/17 04:37 09/16/17 04:37 Additional Labs: Accuchecks 09/16/17 09/16/17 09/15/17 11:06 05:17 20:22 POC Glucose 128 H 70 123 H 09/15/17 16:20 POC Glucose 71 Phys Exam - Physical Examination HEENT: PERRLA, moist MMs Neck: no JVD, supple Respiratory: no wheezing, no rales Cardiovascular: RRR, no significant murmur Gastrointestinal: soft, no distention, positive bowel sounds Musculoskeletal: pulses present Neurological: non-focal, moves all 4 limbs Psychiatric: A&O x 3 Dx/Plan (1) Volume overload Code(s): E87.70 - FLUID OVERLOAD, UNSPECIFIED Status: Acute Comment: resolving (2) Noncompliance with renal dialysis Code(s): Z91.15 - PATIENT'S NONCOMPLIANCE WITH RENAL DIALYSIS Status: Acute (3) Hyponatremia Code(s): E87.1 - HYPO-OSMOLALITY AND HYPONATREMIA Status: Acute (4) Normocytic anemia Code(s): D64.9 - ANEMIA, UNSPECIFIED Status: Chronic (5) Pressure ulcer of sacral region, stage 4 Code(s): L89.154 - PRESSURE ULCER OF SACRAL REGION, STAGE 4 Status: Chronic (6) Diabetes mellitus type 2 in nonobese Code(s): E11.9 - TYPE 2 DIABETES MELLITUS WITHOUT COMPLICATIONS Status: Chronic Comment: labile (7) ESRD (end stage renal disease) on dialysis Code(s): N18.6 - END STAGE RENAL DISEASE; Z99.2 - DEPENDENCE ON RENAL DIALYSIS Status: Chronic (8) HTN (hypertension) Code(s): I10 - ESSENTIAL (PRIMARY) HYPERTENSION Status: Chronic Qualifiers: Hypertension type: essential hypertension Qualified Code(s): I10 - Essential (primary) hypertension (9) Peripheral vascular disease Code(s): I73.9 - PERIPHERAL VASCULAR DISEASE, UNSPECIFIED Status: Chronic (10) Hyperkalemia Code(s): E87.5 - HYPERKALEMIA Status: Resolved - Plan needs HD access -: consult in am, keep him npo after midnight -: fingerstick glucose still drops down to 60's, not on any dm meds -: encourage po intake, will dc diabetic diet, insulin levels are normal * . Review of Systems - Medications/Allergies Allergies/Adverse Reactions: Allergies Allergy/AdvReac Type Severity Reaction Status Date / Time No Known Allergies Allergy Verified 07/21/17 15:20 Medications: Current Medications Acetaminophen (Tylenol) 650 mg PO Q4H PRN PRN Reason: Headache/Fever or Pain Hydrocodone Bitart/Acetaminophen ([place] 5/325) 1 tab PO Q4H PRN PRN Reason: Moderate Pain (4-6) Al Hydroxide/Mg Hydroxide (Maalox) 30 ml PO Q6H PRN PRN Reason: Heartburn or Indigestion Amlodipine Besylate (Norvasc) 2.5 mg PO DAILY [facility] Last Admin: 09/16/17 09:13 Dose: 2.5 mg Artificial Tears (Tears Renewed 15ml Bottle) 0 drop EA EYE PRN PRN PRN Reason: Dry Eyes Atorvastatin Calcium (Lipitor) 40 mg PO HS [facility] Last Admin: 09/15/17 20:26 Dose: 40 mg Calcium Carbonate (Tums) 1,000 mg PO Q4H PRN PRN Reason: Heartburn or Indigestion Dextrose/Water (Dextrose 50%) 25 gm SLOW IVP PRN PRN PRN Reason: Hypoglycemia Glucagon (Glucagon) 1 mg IM PRN PRN PRN Reason: Hypoglycemia Guaifenesin (Robitussin Sf) 200 mg PO Q4H PRN PRN Reason: Cough Hydralazine HCl (Apresoline) 10 mg SLOW IVP Q4H PRN PRN Reason: Systolic BP > 180 Dextrose/Water (D5w) 1,000 mls @ 0 mls/hr IV .Q0M PRN; As Directed PRN Reason: Hypoglycemia Dextrose/Sodium Chloride (D5 0.9% Ns) 1,000 mls @ 60 mls/hr IV .[id number] [facility] Loperamide HCl (Imodium) 2 mg PO PRN PRN PRN Reason: Diarrhea/Loose Stools Loratadine (Claritin) 10 mg PO DAILYPRN PRN PRN Reason: Sinus Symptoms Magnesium Hydroxide (Milk Of Magnesium) 30 ml PO DAILYPRN PRN PRN Reason: Constipation Metoclopramide HCl (Reglan) 5 mg PO ACHS PRN PRN Reason: Nausea/Vomiting Metoprolol Tartrate (Lopressor) 25 mg PO BID [facility] Last Admin: 09/16/17 09:13 Dose: 25 mg Midodrine (Proamatine) 5 mg PO TID [facility] Last Admin: 09/16/17 09:13 Dose: 5 mg Mineral Oil/White Petrolatum (Eucerin Cream) 0 gm TOP BIDPRN PRN PRN Reason: Dry Skin Nitroglycerin (Nitrostat) 0.4 mg SL Q5MIN PRN PRN Reason: Chest Pain Ondansetron HCl (Zofran Odt) 4 mg PO Q6H PRN PRN Reason: Nausea/Vomiting Ondansetron HCl (Zofran) 4 mg IVP Q6H PRN PRN Reason: Nausea/Vomiting Pantoprazole Sodium (Protonix) 40 mg PO DAILY [facility] Last Admin: 09/16/17 09:12 Dose: 40 mg Phenol (Chloraseptic [place] 180 Ml Bot) 0 ml PO PRN PRN PRN Reason: Sore Throat Senna (Senokot) 2 tab PO HSPRN PRN PRN Reason: Constipation Sertraline HCl (Zoloft) 25 mg PO DAILY [facility] Last Admin: 09/16/17 09:13 Dose: 25 mg Sodium Chloride ([place] Nasal [place] 0.65%) 0 ml EA NARE QIDPRN PRN PRN Reason: Nasal Congestion Sodium Chloride (Flush - Normal Saline) 10 ml IVF PRN PRN PRN Reason: Saline Flush
[2017-09-16] MEDS: Dextrose 5 % And 0.9 % NaCl 1,000 ML IV SCH (12:25)
[2017-09-16] MEDS ORDERED: Heparin 10,000 UNITS/1 ML VIAL ONE (15:14)
[2017-09-16] MEDS: Atorvastatin Calcium 40 MG TAB PO SCH (22:27)
[2017-09-17] MEDS: Dextrose 5 % And 0.9 % NaCl 1,000 ML IV SCH ×2 (03:26→06:22)
[2017-09-17 05:20] LABS: Anion Gap 19 mmol/L (10-20); BUN (Urea Nitrogen) 62 mg/dL (8.4-25.7); Calc. Creatinine Clearance 9 mL/min (70-130); Calcium 8.9 mg/dL (7.8-10.44); Carbon Dioxide 17 mmol/L (23-31); Chloride 101 mmol/L (98-107); Estimated GFR-MDRD 6
[2017-09-17] MEDS: Midodrine HCl 5 MG TAB PO SCH ×3 (08:24→22:33)
[2017-09-17] MEDS: Metoprolol Tartrate 25 MG TAB PO SCH ×3 (08:24→22:33)
[2017-09-17] MEDS: Amlodipine 5 MG TAB PO SCH ×2 (08:24→13:10)
--- NOTE | 2017-09-17 11:32 | PDOC.PN ---
- Subjective Encounter Start Date: 09/17/17 Encounter Start Time: 08:45 Subjective: is npo for HD access -: no chest pain or palp - Objective Resuscitation Status: Resuscitation Status FULL:Full Resuscitation MAR Reviewed: Yes Vital Signs & Weight: Vital Signs (12 hours) Temp Pulse Resp BP Pulse Ox 09/17/17 08:00 97.4 F L 64 16 152/81 H 97 09/17/17 05:10 97.8 F 60 18 154/81 H 97 Weight Admit Weight 144 lb 6.4 oz Weight 167 lb 12.348 oz I&O: 09/16/17 09/17/17 09/18/17 06:59 06:59 06:59 Intake Total 1750 Output Total 2325 Balance -575 Result Diagrams: 09/16/17 04:37 09/17/17 04:36 Additional Labs: Accuchecks 09/17/17 09/16/17 09/16/17 04:06 19:49 15:49 POC Glucose 74 169 H 164 H Phys Exam - Physical Examination HEENT: PERRLA, moist MMs Neck: no JVD, supple Respiratory: no wheezing, no rales Cardiovascular: RRR, no significant murmur Gastrointestinal: soft, non-tender, positive bowel sounds Musculoskeletal: no edema, pulses present Neurological: non-focal, moves all 4 limbs Psychiatric: A&O x 3 Dx/Plan (1) Volume overload Code(s): E87.70 - FLUID OVERLOAD, UNSPECIFIED Status: Acute Comment: resolving (2) Noncompliance with renal dialysis Code(s): Z91.15 - PATIENT'S NONCOMPLIANCE WITH RENAL DIALYSIS Status: Acute (3) Hyponatremia Code(s): E87.1 - HYPO-OSMOLALITY AND HYPONATREMIA Status: Resolved (4) Normocytic anemia Code(s): D64.9 - ANEMIA, UNSPECIFIED Status: Chronic (5) Pressure ulcer of sacral region, stage 4 Code(s): L89.154 - PRESSURE ULCER OF SACRAL REGION, STAGE 4 Status: Chronic (6) Diabetes mellitus type 2 in nonobese Code(s): E11.9 - TYPE 2 DIABETES MELLITUS WITHOUT COMPLICATIONS Status: Chronic Comment: labile (7) ESRD (end stage renal disease) on dialysis Code(s): N18.6 - END STAGE RENAL DISEASE; Z99.2 - DEPENDENCE ON RENAL DIALYSIS Status: Chronic (8) HTN (hypertension) Code(s): I10 - ESSENTIAL (PRIMARY) HYPERTENSION Status: Chronic Qualifiers: Hypertension type: essential hypertension Qualified Code(s): I10 - Essential (primary) hypertension (9) Peripheral vascular disease Code(s): I73.9 - PERIPHERAL VASCULAR DISEASE, UNSPECIFIED Status: Chronic (10) Hyperkalemia Code(s): E87.5 - HYPERKALEMIA Status: Resolved - Plan is npo for HD access, current one is not working -: K is 6.2, not symptomatic at present -: encourage po intake, fingerstick is improving -: will need HD after access is arranged today -: dc plan in am if stable * . Review of Systems - Medications/Allergies Allergies/Adverse Reactions: Allergies Allergy/AdvReac Type Severity Reaction Status Date / Time No Known Allergies Allergy Verified 07/21/17 15:20 Medications: Current Medications Acetaminophen (Tylenol) 650 mg PO Q4H PRN PRN Reason: Headache/Fever or Pain Hydrocodone Bitart/Acetaminophen ([place] 5/325) 1 tab PO Q4H PRN PRN Reason: Moderate Pain (4-6) Al Hydroxide/Mg Hydroxide (Maalox) 30 ml PO Q6H PRN PRN Reason: Heartburn or Indigestion Amlodipine Besylate (Norvasc) 2.5 mg PO DAILY [facility] Last Admin: 09/17/17 08:24 Dose: Not Given Artificial Tears (Tears Renewed 15ml Bottle) 0 drop EA EYE PRN PRN PRN Reason: Dry Eyes Atorvastatin Calcium (Lipitor) 40 mg PO HS [facility] Last Admin: 09/16/17 22:27 Dose: 40 mg Calcium Carbonate (Tums) 1,000 mg PO Q4H PRN PRN Reason: Heartburn or Indigestion Dextrose/Water (Dextrose 50%) 25 gm SLOW IVP PRN PRN PRN Reason: Hypoglycemia Glucagon (Glucagon) 1 mg IM PRN PRN PRN Reason: Hypoglycemia Guaifenesin (Robitussin Sf) 200 mg PO Q4H PRN PRN Reason: Cough Hydralazine HCl (Apresoline) 10 mg SLOW IVP Q4H PRN PRN Reason: Systolic BP > 180 Dextrose/Water (D5w) 1,000 mls @ 0 mls/hr IV .Q0M PRN; As Directed PRN Reason: Hypoglycemia Dextrose/Sodium Chloride (D5 0.9% Ns) 1,000 mls @ 60 mls/hr IV .[id number] [facility] Last Admin: 09/17/17 06:22 Dose: 1,000 mls Loperamide HCl (Imodium) 2 mg PO PRN PRN PRN Reason: Diarrhea/Loose Stools Loratadine (Claritin) 10 mg PO DAILYPRN PRN PRN Reason: Sinus Symptoms Magnesium Hydroxide (Milk Of Magnesium) 30 ml PO DAILYPRN PRN PRN Reason: Constipation Metoclopramide HCl (Reglan) 5 mg PO ACHS PRN PRN Reason: Nausea/Vomiting Metoprolol Tartrate (Lopressor) 25 mg PO BID [facility] Last Admin: 09/17/17 08:24 Dose: Not Given Midodrine (Proamatine) 5 mg PO TID [facility] Last Admin: 09/17/17 08:24 Dose: Not Given Mineral Oil/White Petrolatum (Eucerin Cream) 0 gm TOP BIDPRN PRN PRN Reason: Dry Skin Nitroglycerin (Nitrostat) 0.4 mg SL Q5MIN PRN PRN Reason: Chest Pain Ondansetron HCl (Zofran Odt) 4 mg PO Q6H PRN PRN Reason: Nausea/Vomiting Ondansetron HCl (Zofran) 4 mg IVP Q6H PRN PRN Reason: Nausea/Vomiting Pantoprazole Sodium (Protonix) 40 mg PO DAILY [facility] Last Admin: 09/17/17 08:24 Dose: 40 mg Phenol (Chloraseptic [place] 180 Ml Bot) 0 ml PO PRN PRN PRN Reason: Sore Throat Senna (Senokot) 2 tab PO HSPRN PRN PRN Reason: Constipation Sertraline HCl (Zoloft) 25 mg PO DAILY [facility] Last Admin: 09/17/17 08:24 Dose: 25 mg Sodium Chloride ([place] Nasal [place] 0.65%) 0 ml EA NARE QIDPRN PRN PRN Reason: Nasal Congestion Sodium Chloride (Flush - Normal Saline) 10 ml IVF PRN PRN PRN Reason: Saline Flush
[2017-09-17] MEDS: Atorvastatin Calcium 40 MG TAB PO SCH (22:33)
--- NOTE | 2017-09-17 23:47 | PRG ---
DATE OF SERVICE: 09/17/2017 SUBJECTIVE: Patient was seen and examined at bedside and overnight events noted. Patient denies an y shortness of breath or chest pain or palpitation. No history of nausea or vomiting or diarrhea or fever or chills or cramps. OBJECTIVE: GENERAL: This is a well-built male in no apparent distress. VITAL SIGNS: Temperature 98.2, pulse 80, respiratory 20, blood pressure 117/66. HEENT: Atraumatic, normocephalic. Oral mucosa is moist. NECK: Supple. CARDIOVASCULAR: S1, S2 heard. Rate and rhythm regular. RESPIRATORY: Clear to auscultation. GASTROINTESTINAL: Abdomen is soft. MUSCULOSKELETAL: No tenderness. No edema. DERMATOLOGIC: No skin rash. NEUROLOGIC: Alert and awake and oriented x3. No focal neurologic deficits. Moving all the extremi ties. PSYCHIATRIC: Mood and affect normal. LABORATORY DATA: Potassium is 6.2, BUN is 62, creatinine 9.2. ASSESSMENT AND PLAN: 1. End-stage renal disease, prior with hyperkalemia. Plan is to have a dialysis and the patient's dialysis catheter was not working last time. We will try to access catheter. If any issues, we malena l consult surgery for change out of the catheter. Discuss the case with Dr. Ruiz and plan is to replace the catheter if it is not functioning very well. 2. Hyponatremia. 3. Hyperkalemia, we will have dialysis. 3. Hypertension . Plan is to continue on dialysis as tolerated.
--- NOTE | 2017-09-18 00:06 | PRG ---
DATE OF SERVICE: 09/16/2017 SUBJECTIVE: Patient was seen and examined at bedside and overnight events noted. Patient denies an y shortness of breath or chest pain or palpitation. No history of nausea or vomiting or diarrhea or fever or chills or cramps. OBJECTIVE: GENERAL: This is a well-built male in no apparent distress. VITAL SIGNS: Temperature 98.3, pulse 71, respiratory , and blood pressure 130/80. HEENT: Atraumatic and normocephalic. Oral mucosa is moist. NECK: Supple. CARDIOVASCULAR: S1 and S2 heard. Rate and rhythm regular. RESPIRATORY: Clear to auscultation. GASTROINTESTINAL: Abdomen is soft. MUSCULOSKELETAL: No tenderness. No edema. DERMATOLOGIC: No skin rash. NEUROLOGIC: Alert, awake and oriented x3. No focal neurologic deficits. Moving all the extremitie s. PSYCHIATRIC: Mood and affect normal. LABORATORY DATA: Potassium is 5.3, BUN is 42 and creatinine is 7.1. ASSESSMENT AND PLAN: 1. End-stage renal disease, on hemodialysis. Continue on dialysis as tolerated. 2. Cirrhosis. 3. Hyperlipidemia. 4. Hyperkalemia. 5. Hypertension. 6. Follow up with Surgery if continues to have issues with the dialysis access.
[2017-09-18] MEDS: Metoprolol Tartrate 25 MG TAB PO SCH ×2 (07:22→21:27)
[2017-09-18] MEDS: Amlodipine 5 MG TAB PO SCH (08:45)
[2017-09-18] MEDS: Midodrine HCl 5 MG TAB PO SCH ×3 (08:45→21:27)
[2017-09-18 08:49] LABS: Mean Platelet Volume 8.8 fL (7.4-10.4); White Blood Cell (WBC) Count 6.2 thou/uL (4.8-10.8)
[2017-09-18 08:53] LABS: PTT 35.4 SEC (22.9-36.1); Prothrombin Time 14.3 SEC (12.0-14.7)
[2017-09-18] MEDS ORDERED: CEFAZOLIN/Water 2 GM/20 ML SYRINGE SLOW IVP SCH (09:00)
[2017-09-18 09:04] LABS: Anion Gap 19 mmol/L (10-20); BUN (Urea Nitrogen) 50 mg/dL (8.4-25.7); Calc. Creatinine Clearance 10 mL/min (70-130); Calcium 8.9 mg/dL (7.8-10.44); Carbon Dioxide 21 mmol/L (23-31); Chloride 100 mmol/L (98-107); Estimated GFR-MDRD 7
[2017-09-18 09:07] LABS: Neutrophil 52 % (42-75)
--- NOTE | 2017-09-18 09:30 | PRG ---
Patient Name: MARLIN ALLEN Date of service: 09/18/2017 Subjective: Patient was seen and examined at bedside and overnight events noted. Patient denies any shortness of breath or chest pain or palpitation. No history of nausea or vomiting or diarrhea or fever or chills or cramps. Objective: General: This is a well-built male in no apparent distress Vital signs: Temperature 97.9, pulse 60, respirations 18, blood pressure 132/76. HEENT: Atraumatic, normocephalic. Oral mucosa is moist. Neck: Supple. Cardiovascular: S1 S2 heard. Rate and rhythm regular. Respiratory: Clear to auscultation. Gastrointestinal: Abdomen is soft. Musculoskeletal: No tenderness. No edema. Dermatologic: No skin rash. Neurologic: Alert and awake and oriented X3. No focal neurologic deficits. Moving all the extremi ties. Psychiatric: Mood and affect normal. LABORATORY DATA: Potassium is 5.5, BUN 50, creatinine 8.06. ASSESSMENT AND PLAN: 1. End-stage renal disease. Continue on dialysis as tolerated. 2. Hyperlipidemia, limit potassium. 3. Hypertension, stable. Plan is to change out the access, it is not working and probably not getting good cleaning or cleara nce with the current catheter. Plan is to change out the catheter today and will have dialysis afte r that.
[2017-09-18] MEDS ORDERED: Fentanyl 100 MCG/2 ML VIAL ONE (11:26)
--- NOTE | 2017-09-18 11:26 | CON ---
DATE OF CONSULTATION: 09/18/2017 REASON FOR CONSULTATION: Dialysis access. HISTORY: Mr. Jerez is a 62-year-old man who came to the hospital with low blood sugar and hyperkalemia. He missed his dialysis on the day of his admission and was found down at home with a low blood sugar, which was treated by the paramedics with improvement in his level of consciousness. He was admitted to the hospital and was found to have hyperkalemia requiring emergency dialysis. He has a tunneled dialysis catheter in place, but this is not functioning well. The dialysis nurses report that the pressures are high and they sometimes have to reverse the ports. They have given Cathflo without significant improvement and they are only able to do a partial dialysis on him. The patient states that at his regular dialysis clinic, they also have problems with his catheter, although they are usually able to complete his dialysis. The patient himself is a very vague historian and does not report pertinent aspects of his past or recent history unless prompted, but he states that he usually takes his medications as prescribed, although he misses some times. PAST MEDICAL HISTORY: End-stage renal disease due to diabetes and hypertension , peripheral vascular disease and anemia of renal disease. The chart also notes chronic diastolic heart failure, although the patient denies any history of heart failure, coronary artery disease, cerebrovascular disease. On review of his chart he also has a history of Saulo's gangrene, although he did not report this to me. On various notes, also report cirrhosis and colon cancer, but the patient denies these. PAST SURGICAL HISTORY: Right [id number] amputation, left transmetatarsal amputation and lower extremity bypass by Dr. Howell. He has a colostomy which he states was placed because of a spider bite. On review of his chart he had an episode of Saulo's gangrene back in 2003 which required extensive debridements and diverting colostomy, but this colostomy was reversed in 2004 and the patient cannot explain why he has another colostomy at this time on the right side. He did not report any of his multiple surgeries for his Saulo gangrene to me when reporting his past surgical history. He has a right tunneled hemodialysis catheter in place which he states was placed 3 months ago. He thought this was done at [place], but there is no record of this being performed here. ALLERGIES: He has no known drug allergies. OUTPATIENT MEDICATIONS: Atorvastatin, iron, Reglan, midodrine, and sertraline according to the chart. According to the patient's family, he was started on a new dialysis medication, but it is not clear from speaking to the patient what this was. INPATIENT MEDICATIONS: Include amlodipine, atorvastatin, sliding scale insulin , metoprolol, midodrine, Protonix, sertraline, and multiple p.r.n.'s. FAMILY HISTORY: Diabetes in multiple family members. SOCIAL HISTORY: The patient lives with his sister, does not smoke, drink or use illicit drugs at this time. REVIEW OF SYSTEMS: Ten system review of systems is negative except per HPI. The patient states that he has not been fitted with a right [id number] prosthesis yet, but can transfer and ambulate short distances with a walker. LABORATORY: White count on the 5th was 4.9, hematocrit 36.8 and platelet count 150. Electrolytes yesterday showed a sodium of 131, potassium of 6.2, bicarbonate of 17, BUN and creatinine of 62 and 9.22. He has been dialyzed since that time. Blood sugars have ranged from 73-167 over the past 24 hours. Coags in the past has been basically normal and his hepatitis serologies are negative. IMAGING: Chest x-ray done at the time of admission showed no acute process with a hemodialysis catheter in place. PHYSICAL EXAMINATION: VITAL SIGNS: The patient has been afebrile during this admission. Heart rate 66, respirations 16, 98% saturated on room air, blood pressure 122/76. GENERAL: Reveals a somewhat disheveled man in no acute distress. He is not flushed or toxic in appearance. He is not jaundiced or icteric. HEENT: Unremarkable. He has a tunneled hemodialysis catheter in place at the right IJ position. No lymphadenopathy or thyroid nodules are appreciated. HEART: Regular in rate and rhythm without murmurs, rubs or gallops. LUNGS: Clear to auscultation bilaterally with good air entry. EXTREMITIES: Warm, but there are no palpable pedal pulses. He has a weak popliteal pulse on the left and a normal popliteal pulse on the right. He has a healed left transmetatarsal and right [id number] amputation and healed skin grafts in the perineal area. ABDOMEN: Abdomen is soft, nontender, nondistended with a healed midline incision and a right lower quadrant colostomy in place. EXTREMITIES: The patient is right-handed. No palpable veins in the forearm. Vein mapping done in August showed good caliber arteries, but no visualized veins in the forearms and only the left cephalic vein visualized in the upper arm down to the level of the elbow. ASSESSMENT: End-stage renal failure in patient with inadequate forearm veins by vein mapping. He appears to have an adequate upper arm cephalic vein on the left, so we will plan on a left upper arm cephalic vein fistula if possible. He is right handed, so if no appropriate vein was found on the left arm we will plan to proceed with a graft since vein mapping does not indicate the presence of any appropriate veins on the right side. We will also plan on changing out his tunneled dialysis catheter since this has never worked very well and has been inadequate recently for a full dialysis session. The inherent risks of the procedures were discussed with the patient. These include, but are not limited to bleeding, infection, risks of anesthesia, hemothorax, pneumothorax, failure of the fistula or graft to work, need for additional procedures to obtain a functional fistula or graft and arterial steal which can lead to ischemia of the hand and even loss of digits or of the hand. He understands and accepts these risks and wishes to proceed. 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 All of his questions were answered. CAESAR
[2017-09-18] MEDS ORDERED: Lidocaine 2% w/Epinephrine 1:200K 20 ML VIAL ONE (11:35)
[2017-09-18] MEDS ORDERED: Heparin 5,000 UNITS/ML VIAL ONE (11:36)
[2017-09-18] MEDS ORDERED: Bupivacaine 0.25% HCL 30 ML VIAL ONE (11:36)
[2017-09-18] MEDS ORDERED: Protamine Sulfate 50 MG/5 ML VIAL ONE (11:36)
[2017-09-18] MEDS ORDERED: CEFAZOLIN/Water 2 GM/20 ML SYRINGE ONE (11:42)
[2017-09-18] MEDS ORDERED: Heparin 10,000 UNITS/1 ML VIAL ONE (11:52)
[2017-09-18] MEDS ORDERED: Sodium Chloride 0.9% 30 ML ONE (11:52)
[2017-09-18] MEDS ORDERED: Metoclopramide HCl 10 MG/2 ML VIAL ONE (13:06)
[2017-09-18] MEDS ORDERED: Ondansetron HCl/PF 4 MG/2 ML Vial ONE (13:06)
[2017-09-18] MEDS ORDERED: PHENYLEPHRINE-NS 100 MCG/ML 10 ML SYRINGE ONE (13:06)
[2017-09-18] MEDS ORDERED: Propofol 200 MG/20 ML VIAL ONE (13:06)
[2017-09-18] MEDS ORDERED: ePHEDrine/0.9% NaCl/PF SYRINGE 50 mg/10 ml ONE (13:06)
[2017-09-18] MEDS ORDERED: Lidocaine 2% MPF 10 ML AMP (For Epidural Use) ONE (13:06)
--- NOTE | 2017-09-18 13:27 | PDOC.PN ---
- Subjective Encounter Start Date: 09/18/17 Encounter Start Time: 10:10 Subjective: no sob or palpitaitons - Objective Resuscitation Status: Resuscitation Status FULL:Full Resuscitation MAR Reviewed: Yes Vital Signs & Weight: Vital Signs (12 hours) Temp Pulse Resp BP Pulse Ox 09/18/17 11:01 97.7 F 58 L 18 135/79 97 09/18/17 08:28 97.9 F 66 16 122/76 98 09/18/17 08:00 97.7 F 58 L 18 Weight Admit Weight 144 lb 6.4 oz Weight 168 lb 6.931 oz I&O: 09/17/17 09/18/17 09/19/17 06:59 06:59 06:59 Intake Total 1750 780 Output Total 2325 750 Balance -575 30 Result Diagrams: 09/18/17 08:16 09/18/17 08:16 Additional Labs: Accuchecks 09/18/17 09/18/17 09/18/17 12:25 10:54 04:23 POC Glucose 76 74 78 09/17/17 09/17/17 19:56 16:42 POC Glucose 167 H 141 H Phys Exam - Physical Examination HEENT: PERRLA, moist MMs Neck: no JVD, supple Respiratory: no wheezing, no rales Cardiovascular: RRR, no significant murmur Gastrointestinal: soft, non-tender, positive bowel sounds colostomy Musculoskeletal: no edema, pulses present Neurological: non-focal, moves all 4 limbs Dx/Plan (1) Volume overload Code(s): E87.70 - FLUID OVERLOAD, UNSPECIFIED Status: Acute Comment: resolving (2) Noncompliance with renal dialysis Code(s): Z91.15 - PATIENT'S NONCOMPLIANCE WITH RENAL DIALYSIS Status: Acute (3) Hyponatremia Code(s): E87.1 - HYPO-OSMOLALITY AND HYPONATREMIA Status: Resolved (4) Normocytic anemia Code(s): D64.9 - ANEMIA, UNSPECIFIED Status: Chronic (5) Pressure ulcer of sacral region, stage 4 Code(s): L89.154 - PRESSURE ULCER OF SACRAL REGION, STAGE 4 Status: Chronic (6) Diabetes mellitus type 2 in nonobese Code(s): E11.9 - TYPE 2 DIABETES MELLITUS WITHOUT COMPLICATIONS Status: Chronic Comment: labile (7) ESRD (end stage renal disease) on dialysis Code(s): N18.6 - END STAGE RENAL DISEASE; Z99.2 - DEPENDENCE ON RENAL DIALYSIS Status: Chronic (8) HTN (hypertension) Code(s): I10 - ESSENTIAL (PRIMARY) HYPERTENSION Status: Chronic Qualifiers: Hypertension type: essential hypertension Qualified Code(s): I10 - Essential (primary) hypertension (9) Peripheral vascular disease Code(s): I73.9 - PERIPHERAL VASCULAR DISEASE, UNSPECIFIED Status: Chronic (10) Hyperkalemia Code(s): E87.5 - HYPERKALEMIA Status: Resolved - Plan will have his tunnelled cath change today along with graft/fistula -: watch for hypoglycemia with poor eating after above is done -: for HD today -: dc plan in am * . Review of Systems - Medications/Allergies Allergies/Adverse Reactions: Allergies Allergy/AdvReac Type Severity Reaction Status Date / Time No Known Allergies Allergy Verified 07/21/17 15:20 Medications: Current Medications Acetaminophen (Tylenol) 650 mg PO Q4H PRN PRN Reason: Headache/Fever or Pain Hydrocodone Bitart/Acetaminophen ([place] 5/325) 1 tab PO Q4H PRN PRN Reason: Moderate Pain (4-6) Al Hydroxide/Mg Hydroxide (Maalox) 30 ml PO Q6H PRN PRN Reason: Heartburn or Indigestion Amlodipine Besylate (Norvasc) 2.5 mg PO DAILY [facility] Last Admin: 09/18/17 08:45 Dose: Not Given Artificial Tears (Tears Renewed 15ml Bottle) 0 drop EA EYE PRN PRN PRN Reason: Dry Eyes Atorvastatin Calcium (Lipitor) 40 mg PO HS [facility] Last Admin: 09/17/17 22:33 Dose: 40 mg Calcium Carbonate (Tums) 1,000 mg PO Q4H PRN PRN Reason: Heartburn or Indigestion Cefazolin Sodium (Ancef) 2 gm SLOW IVP WILLCALL [facility] Stop: 09/18/17 16:00 Dextrose/Water (Dextrose 50%) 25 gm SLOW IVP PRN PRN PRN Reason: Hypoglycemia Glucagon (Glucagon) 1 mg IM PRN PRN PRN Reason: Hypoglycemia Guaifenesin (Robitussin Sf) 200 mg PO Q4H PRN PRN Reason: Cough Hydralazine HCl (Apresoline) 10 mg SLOW IVP Q4H PRN PRN Reason: Systolic BP > 180 Dextrose/Water (D5w) 1,000 mls @ 0 mls/hr IV .Q0M PRN; As Directed PRN Reason: Hypoglycemia Loperamide HCl (Imodium) 2 mg PO PRN PRN PRN Reason: Diarrhea/Loose Stools Loratadine (Claritin) 10 mg PO DAILYPRN PRN PRN Reason: Sinus Symptoms Magnesium Hydroxide (Milk Of Magnesium) 30 ml PO DAILYPRN PRN PRN Reason: Constipation Metoclopramide HCl (Reglan) 5 mg PO ACHS PRN PRN Reason: Nausea/Vomiting Metoprolol Tartrate (Lopressor) 25 mg PO BID [facility] Last Admin: 09/18/17 07:22 Dose: 25 mg Midodrine (Proamatine) 5 mg PO TID [facility] Last Admin: 09/18/17 08:45 Dose: Not Given Mineral Oil/White Petrolatum (Eucerin Cream) 0 gm TOP BIDPRN PRN PRN Reason: Dry Skin Nitroglycerin (Nitrostat) 0.4 mg SL Q5MIN PRN PRN Reason: Chest Pain Ondansetron HCl (Zofran Odt) 4 mg PO Q6H PRN PRN Reason: Nausea/Vomiting Ondansetron HCl (Zofran) 4 mg IVP Q6H PRN PRN Reason: Nausea/Vomiting Pantoprazole Sodium (Protonix) 40 mg PO DAILY [facility] Last Admin: 09/18/17 07:43 Dose: Not Given Phenol (Chloraseptic [place] 180 Ml Bot) 0 ml PO PRN PRN PRN Reason: Sore Throat Senna (Senokot) 2 tab PO HSPRN PRN PRN Reason: Constipation Sertraline HCl (Zoloft) 25 mg PO DAILY [facility] Last Admin: 09/18/17 07:43 Dose: Not Given Sodium Chloride ([place] Nasal [place] 0.65%) 0 ml EA NARE QIDPRN PRN PRN Reason: Nasal Congestion Sodium Chloride (Flush - Normal Saline) 10 ml IVF PRN PRN PRN Reason: Saline Flush
[2017-09-18] MEDS ORDERED: Ondansetron HCl/PF 4 MG/2 ML Vial IVP PRN (16:26)
[2017-09-18] MEDS ORDERED: Promethazine HCl 25 MG/ML VIAL SLOW IVP PRN (16:26)
[2017-09-18] MEDS ORDERED: Promethazine HCl 25 MG/ML VIAL IM PRN (16:26)
--- NOTE | 2017-09-18 18:14 | RAD ---
AP VIEW OF THE CHEST 09/18/17 INDICATION: Hemodialysis catheter placement. COMPARISON: Prior exam dated 09/11/17. FINDINGS: The right IJ dialysis catheter is unchanged in position. No pneumothorax is evident. The lungs are cl ear. No acute osseous abnormality is evident. IMPRESSION: Right IJ dialysis catheter is not appreciably changed from the comparison. Tip is seen within the reg ion of the SVC. No pneumothorax is evident. POS: [facility]
[2017-09-18] MEDS: Atorvastatin Calcium 40 MG TAB PO SCH (21:27)
[2017-09-19] MEDS: Metoprolol Tartrate 25 MG TAB PO SCH ×2 (09:14→21:26)
[2017-09-19] MEDS: Amlodipine 5 MG TAB PO SCH (09:14)
[2017-09-19] MEDS: Midodrine HCl 5 MG TAB PO SCH ×3 (09:16→21:26)
[2017-09-19 09:38] LABS: Anion Gap 18 mmol/L (10-20); BUN (Urea Nitrogen) 26 mg/dL (8.4-25.7); Calc. Creatinine Clearance 15 mL/min (70-130); Calcium 8.7 mg/dL (7.8-10.44); Carbon Dioxide 20 mmol/L (23-31); Chloride 103 mmol/L (98-107); Estimated GFR-MDRD 11
--- NOTE | 2017-09-19 13:45 | PDOC.PN ---
- Subjective Encounter Start Date: 09/19/17 Encounter Start Time: 08:55 Subjective: c/o left UE still numb -: cannot bend his fingers as he doesn't feel them - Objective Resuscitation Status: Resuscitation Status FULL:Full Resuscitation MAR Reviewed: Yes Vital Signs & Weight: Vital Signs (12 hours) Temp Pulse Resp BP BP Pulse Ox 09/19/17 11:20 98.6 F 76 18 117/67 97 09/19/17 09:14 80 110/71 09/19/17 08:00 98.2 F 80 16 97 09/19/17 07:52 98.2 F 80 16 110/71 97 09/19/17 05:00 98.6 F 76 16 134/68 97 Weight Admit Weight 144 lb 6.4 oz Weight 166 lb 14.239 oz I&O: 09/18/17 09/19/17 09/20/17 06:59 06:59 06:59 Intake Total 780 240 Output Total 750 Balance 30 240 Result Diagrams: 09/18/17 08:16 09/19/17 09:03 Additional Labs: Accuchecks 09/19/17 09/19/17 09/18/17 11:21 05:06 21:09 POC Glucose 159 H 111 H 72 09/18/17 09/18/17 17:14 15:55 POC Glucose 78 92 Phys Exam - Physical Examination HEENT: PERRLA, moist MMs Neck: no JVD, supple Respiratory: no wheezing, no rales Cardiovascular: RRR, no significant murmur Gastrointestinal: soft, non-tender, positive bowel sounds colostomy+ Left UE pulses are felt, there is expectant edema, no gangrene/discol Neurological: non-focal still has left UE nerve block with no sensation Psychiatric: A&O x 3 Dx/Plan (1) Volume overload Code(s): E87.70 - FLUID OVERLOAD, UNSPECIFIED Status: Acute Comment: resolving (2) Noncompliance with renal dialysis Code(s): Z91.15 - PATIENT'S NONCOMPLIANCE WITH RENAL DIALYSIS Status: Acute (3) Hyponatremia Code(s): E87.1 - HYPO-OSMOLALITY AND HYPONATREMIA Status: Resolved (4) Normocytic anemia Code(s): D64.9 - ANEMIA, UNSPECIFIED Status: Chronic (5) Pressure ulcer of sacral region, stage 4 Code(s): L89.154 - PRESSURE ULCER OF SACRAL REGION, STAGE 4 Status: Chronic (6) Diabetes mellitus type 2 in nonobese Code(s): E11.9 - TYPE 2 DIABETES MELLITUS WITHOUT COMPLICATIONS Status: Chronic Comment: labile (7) ESRD (end stage renal disease) on dialysis Code(s): N18.6 - END STAGE RENAL DISEASE; Z99.2 - DEPENDENCE ON RENAL DIALYSIS Status: Chronic (8) HTN (hypertension) Code(s): I10 - ESSENTIAL (PRIMARY) HYPERTENSION Status: Chronic Qualifiers: Hypertension type: essential hypertension Qualified Code(s): I10 - Essential (primary) hypertension (9) Peripheral vascular disease Code(s): I73.9 - PERIPHERAL VASCULAR DISEASE, UNSPECIFIED Status: Chronic (10) Hyperkalemia Code(s): E87.5 - HYPERKALEMIA Status: Acute - Plan recurrent hyperkalemia with inadequate HD -: will need HD today, likely dc plan in am -: hopefully his nerve block will wean off -: Left UE vascular supply intact -: will need prosthesis for his bka to amb via ?'s office * . Review of Systems - Medications/Allergies Allergies/Adverse Reactions: Allergies Allergy/AdvReac Type Severity Reaction Status Date / Time No Known Allergies Allergy Verified 07/21/17 15:20 Medications: Current Medications Acetaminophen (Tylenol) 650 mg PO Q4H PRN PRN Reason: Headache/Fever or Pain Hydrocodone Bitart/Acetaminophen ([place] 5/325) 1 tab PO Q4H PRN PRN Reason: Moderate Pain (4-6) Al Hydroxide/Mg Hydroxide (Maalox) 30 ml PO Q6H PRN PRN Reason: Heartburn or Indigestion Amlodipine Besylate (Norvasc) 2.5 mg PO DAILY [facility] Last Admin: 09/19/17 09:14 Dose: 2.5 mg Artificial Tears (Tears Renewed 15ml Bottle) 0 drop EA EYE PRN PRN PRN Reason: Dry Eyes Atorvastatin Calcium (Lipitor) 40 mg PO HS [facility] Last Admin: 09/18/17 21:27 Dose: 40 mg Calcium Carbonate (Tums) 1,000 mg PO Q4H PRN PRN Reason: Heartburn or Indigestion Dextrose/Water (Dextrose 50%) 25 gm SLOW IVP PRN PRN PRN Reason: Hypoglycemia Glucagon (Glucagon) 1 mg IM PRN PRN PRN Reason: Hypoglycemia Guaifenesin (Robitussin Sf) 200 mg PO Q4H PRN PRN Reason: Cough Hydralazine HCl (Apresoline) 10 mg SLOW IVP Q4H PRN PRN Reason: Systolic BP > 180 Dextrose/Water (D5w) 1,000 mls @ 0 mls/hr IV .Q0M PRN; As Directed PRN Reason: Hypoglycemia Loperamide HCl (Imodium) 2 mg PO PRN PRN PRN Reason: Diarrhea/Loose Stools Loratadine (Claritin) 10 mg PO DAILYPRN PRN PRN Reason: Sinus Symptoms Magnesium Hydroxide (Milk Of Magnesium) 30 ml PO DAILYPRN PRN PRN Reason: Constipation Metoclopramide HCl (Reglan) 5 mg PO ACHS PRN PRN Reason: Nausea/Vomiting Metoprolol Tartrate (Lopressor) 25 mg PO BID [facility] Last Admin: 09/19/17 09:14 Dose: 25 mg Midodrine (Proamatine) 5 mg PO TID [facility] Last Admin: 09/19/17 09:16 Dose: Not Given Mineral Oil/White Petrolatum (Eucerin Cream) 0 gm TOP BIDPRN PRN PRN Reason: Dry Skin Nitroglycerin (Nitrostat) 0.4 mg SL Q5MIN PRN PRN Reason: Chest Pain Ondansetron HCl (Zofran Odt) 4 mg PO Q6H PRN PRN Reason: Nausea/Vomiting Ondansetron HCl (Zofran) 4 mg IVP Q6H PRN PRN Reason: Nausea/Vomiting Pantoprazole Sodium (Protonix) 40 mg PO DAILY [facility] Last Admin: 09/19/17 09:14 Dose: 40 mg Phenol (Chloraseptic [place] 180 Ml Bot) 0 ml PO PRN PRN PRN Reason: Sore Throat Senna (Senokot) 2 tab PO HSPRN PRN PRN Reason: Constipation Sertraline HCl (Zoloft) 25 mg PO DAILY [facility] Last Admin: 09/19/17 09:14 Dose: 25 mg Sodium Chloride ([place] Nasal [place] 0.65%) 0 ml EA NARE QIDPRN PRN PRN Reason: Nasal Congestion Sodium Chloride (Flush - Normal Saline) 10 ml IVF PRN PRN PRN Reason: Saline Flush Last Admin: 09/19/17 09:14 Dose: 10 ml
[2017-09-19] MEDS: HYDROcodone/Acetaminophen 5/325 mg Tablet PO PRN ×2 (15:17→21:25)
--- NOTE | 2017-09-19 19:24 | PRG ---
DATE OF SERVICE: 09/19/2017 SUBJECTIVE: Patient was seen and examined at bedside and overnight events noted. Patient denies an y shortness of breath or chest pain or palpitation. No history of nausea or vomiting or diarrhea or fever or chills or cramps. OBJECTIVE: GENERAL: This is a well-built male in no apparent distress. VITAL SIGNS: Temperature 92, pulse 70, respiratory rate 18 and blood pressure 133/72. HEENT: Atraumatic and normocephalic. Oral mucosa is moist. NECK: Supple. CARDIOVASCULAR: S1 and S2 heard. Rate and rhythm regular. RESPIRATORY: Clear to auscultation. GASTROINTESTINAL: Abdomen is soft. MUSCULOSKELETAL: No tenderness. No edema. DERMATOLOGIC: No skin rash. NEUROLOGIC: Alert, awake and oriented x3. No focal neurologic deficits. Moving all the extremitie s. PSYCHIATRIC: Mood and affect normal. LABORATORY DATA: Potassium is 6.0, BUN is 26 and creatinine is 5.37. ASSESSMENT AND PLAN: 1. End-stage renal disease. We will continue on hemodialysis as tolerated. 2. Hyperkalemia. Limit potassium in the diet. 3. Hypertension, stable. 4. Edema, controlled. Plan is to continue on dialysis as tolerated.
[2017-09-19] MEDS: Atorvastatin Calcium 40 MG TAB PO SCH (21:26)
[2017-09-20] MEDS: HYDROcodone/Acetaminophen 5/325 mg Tablet PO PRN ×5 (01:38→22:52)
[2017-09-20 06:03] LABS: Anion Gap 20 mmol/L (10-20); BUN (Urea Nitrogen) 38 mg/dL (8.4-25.7); Calc. Creatinine Clearance 11 mL/min (70-130); Calcium 8.8 mg/dL (7.8-10.44); Carbon Dioxide 16 mmol/L (23-31); Chloride 100 mmol/L (98-107); Estimated GFR-MDRD 7
[2017-09-20] MEDS: Midodrine HCl 5 MG TAB PO SCH ×3 (09:00→20:05)
[2017-09-20] MEDS ORDERED: Heparin 10,000 UNITS/ 10 ML VIAL ONE (10:00)
[2017-09-20 10:38] VITALS: BMI 23.7
--- NOTE | 2017-09-20 11:13 | PDOC.PN ---
- Subjective Encounter Start Date: 09/20/17 Encounter Start Time: 08:50 -: old records requested/rev Patient seen and examined. No new complaints. No overnight events - Objective Resuscitation Status: Resuscitation Status FULL:Full Resuscitation MAR Reviewed: Yes Vital Signs & Weight: Weight Admit Weight 144 lb 6.4 oz Weight 165 lb 5.547 oz I&O: 09/19/17 09/20/17 09/21/17 06:59 06:59 06:59 Intake Total 720 Balance 720 Result Diagrams: 09/18/17 08:16 09/20/17 04:02 Additional Labs: Accuchecks 09/20/17 09/19/17 09/19/17 05:03 19:58 16:01 POC Glucose 85 159 H 119 H 09/19/17 09/18/17 11:21 17:14 POC Glucose 159 H 78 Phys Exam - Physical Examination Constitutional: NAD HEENT: PERRLA, moist MMs, sclera anicteric Neck: no JVD, supple Respiratory: no wheezing, no rales, no rhonchi Cardiovascular: RRR, no significant murmur, no rub Gastrointestinal: soft, non-tender, no distention, positive bowel sounds colostomy Neurological: non-focal Psychiatric: normal affect, A&O x 3 Skin: no rash, normal turgor Dx/Plan (1) Hyperkalemia Code(s): E87.5 - HYPERKALEMIA Status: Acute (2) Noncompliance with renal dialysis Code(s): Z91.15 - PATIENT'S NONCOMPLIANCE WITH RENAL DIALYSIS Status: Acute (3) Volume overload Code(s): E87.70 - FLUID OVERLOAD, UNSPECIFIED Status: Acute Comment: resolving (4) Diabetes mellitus, labile Code(s): E10.9 - TYPE 1 DIABETES MELLITUS WITHOUT COMPLICATIONS Status: Chronic (5) ESRD (end stage renal disease) on dialysis Code(s): N18.6 - END STAGE RENAL DISEASE; Z99.2 - DEPENDENCE ON RENAL DIALYSIS Status: Chronic (6) HTN (hypertension) Code(s): I10 - ESSENTIAL (PRIMARY) HYPERTENSION Status: Chronic Qualifiers: Hypertension type: essential hypertension Qualified Code(s): I10 - Essential (primary) hypertension (7) Normocytic anemia Code(s): D64.9 - ANEMIA, UNSPECIFIED Status: Chronic (8) Peripheral vascular disease Code(s): I73.9 - PERIPHERAL VASCULAR DISEASE, UNSPECIFIED Status: Chronic (9) Pressure ulcer of sacral region, stage 4 Code(s): L89.154 - PRESSURE ULCER OF SACRAL REGION, STAGE 4 Status: Chronic (10) Acute hypoxemic respiratory failure Code(s): J96.01 - ACUTE RESPIRATORY FAILURE WITH HYPOXIA Status: Resolved Comment: likely fluid overload - Plan cont current plan of care * HD as per nephrology * potassium should improve after dialysis today * medication reviewed as below * symptomatic treatment. Review of Systems - Review of Systems Constitutional: negative: Fever, Chills, Sweats, Weakness, Malaise, Other ENT: negative: Ear Pain, Ear Discharge, Nose Pain, Nose Discharge, Nose Congestion, Mouth Pain, Mouth Swelling, Throat Pain, Throat Swelling, Other Respiratory: negative: Cough, Dry, Shortness of Breath, Hemoptysis, SOB with Excertion, Pleuritic Pain, Sputum, Wheezing Cardiovascular: negative: Chest Pain, Palpitations, Orthopnea, Paroxysmal Noc. Dyspnea, Edema, Light Headedness, Other Gastrointestinal: negative: Nausea, Vomiting, Abdominal Pain, Diarrhea, Constipation, Melena, Hematochezia, Other Genitourinary: negative: Dysuria, Frequency, Incontinence, Hematuria, Retention , Other - Medications/Allergies Allergies/Adverse Reactions: Allergies Allergy/AdvReac Type Severity Reaction Status Date / Time No Known Allergies Allergy Verified 07/21/17 15:20 Medications: Current Medications Acetaminophen (Tylenol) 650 mg PO Q4H PRN PRN Reason: Headache/Fever or Pain Hydrocodone Bitart/Acetaminophen ([place] 5/325) 1 tab PO Q4H PRN PRN Reason: Moderate Pain (4-6) Last Admin: 09/20/17 05:44 Dose: 1 tab Al Hydroxide/Mg Hydroxide (Maalox) 30 ml PO Q6H PRN PRN Reason: Heartburn or Indigestion Amlodipine Besylate (Norvasc) 2.5 mg PO DAILY [facility]END[facility] TO [facility] Last Admin: 09/19/17 09:14 Dose: 2.5 mg Artificial Tears (Tears Renewed 15ml Bottle) 0 drop EA EYE PRN PRN PRN Reason: Dry Eyes Atorvastatin Calcium (Lipitor) 40 mg PO HS [facility] Last Admin: 09/19/17 21:26 Dose: 40 mg Calcium Carbonate (Tums) 1,000 mg PO Q4H PRN PRN Reason: Heartburn or Indigestion Dextrose/Water (Dextrose 50%) 25 gm SLOW IVP PRN PRN PRN Reason: Hypoglycemia Glucagon (Glucagon) 1 mg IM PRN PRN PRN Reason: Hypoglycemia Guaifenesin (Robitussin Sf) 200 mg PO Q4H PRN PRN Reason: Cough Hydralazine HCl (Apresoline) 10 mg SLOW IVP Q4H PRN PRN Reason: Systolic BP > 180 Dextrose/Water (D5w) 1,000 mls @ 0 mls/hr IV .Q0M PRN; As Directed PRN Reason: Hypoglycemia Loperamide HCl (Imodium) 2 mg PO PRN PRN PRN Reason: Diarrhea/Loose Stools Loratadine (Claritin) 10 mg PO DAILYPRN PRN PRN Reason: Sinus Symptoms Magnesium Hydroxide (Milk Of Magnesium) 30 ml PO DAILYPRN PRN PRN Reason: Constipation Metoclopramide HCl (Reglan) 5 mg PO ACHS PRN PRN Reason: Nausea/Vomiting Metoprolol Tartrate (Lopressor) 25 mg PO BID [facility] Last Admin: 09/19/17 21:26 Dose: 25 mg Midodrine (Proamatine) 5 mg PO TID [facility]END[facility] Last Admin: 09/19/17 21:26 Dose: 5 mg Mineral Oil/White Petrolatum (Eucerin Cream) 0 gm TOP BIDPRN PRN PRN Reason: Dry Skin Nitroglycerin (Nitrostat) 0.4 mg SL Q5MIN PRN PRN Reason: Chest Pain Ondansetron HCl (Zofran Odt) 4 mg PO Q6H PRN PRN Reason: Nausea/Vomiting Ondansetron HCl (Zofran) 4 mg IVP Q6H PRN PRN Reason: Nausea/Vomiting Pantoprazole Sodium (Protonix) 40 mg PO DAILY [facility] Last Admin: 09/19/17 09:14 Dose: 40 mg Phenol (Chloraseptic [place] 180 Ml Bot) 0 ml PO PRN PRN PRN Reason: Sore Throat Senna (Senokot) 2 tab PO HSPRN PRN PRN Reason: Constipation Sertraline HCl (Zoloft) 25 mg PO DAILY [facility]END[facility] Last Admin: 09/19/17 09:14 Dose: 25 mg Sodium Chloride ([place] Nasal [place] 0.65%) 0 ml EA NARE QIDPRN PRN PRN Reason: Nasal Congestion Sodium Chloride (Flush - Normal Saline) 10 ml IVF PRN PRN PRN Reason: Saline Flush Last Admin: 09/19/17 09:14 Dose: 10 ml
[2017-09-20] MEDS: Metoprolol Tartrate 25 MG TAB PO SCH ×2 (12:28→20:05)
[2017-09-20] MEDS: Amlodipine 5 MG TAB PO SCH (12:28)
[2017-09-20] MEDS: Atorvastatin Calcium 40 MG TAB PO SCH (20:05)
--- NOTE | 2017-09-20 23:21 | PRG ---
DATE OF SERVICE: 09/20/2017 SUBJECTIVE: Patient was seen and examined at bedside and overnight events noted. Patient denies an y shortness of breath or chest pain or palpitation. No history of Nausea or vomiting or diarrhea or fever or chills or cramps. OBJECTIVE: GENERAL: This is a well-built male in no apparent distress. VITAL SIGNS: Temperature 98.2, pulse 74, respiratory rate 18, blood pressure 118/66. HEENT: Atraumatic, normocephalic, oral mucosa is moist. NECK: Supple. CARDIOVASCULAR: S1, S2 heard, rate and rhythm regular. RESPIRATORY: Clear to auscultation. GASTROINTESTINAL: Abdomen is soft. MUSCULOSKELETAL: No tenderness, no edema. DERMATOLOGIC: No skin rash. NEUROLOGIC: Alert and awake and oriented x3, no focal neurologic deficits. Moving all the extremit ies. PSYCHIATRIC: Mood and affect normal. LABORATORY DATA: Potassium is 5.9, BUN is 37.4. ASSESSMENT AND PLAN: 1. End-stage renal disease. Continue on hemodialysis as tolerated. The patient was seen during di alysis, tolerating well. 2. Hyperkalemia, limit potassium. 3. Hypertension, stable. 4. Edema, controlled. Plan is to limit potassium otherwise continue on dialysis and aldosterone levels are pending. Aldos terone levels are normal. Cortisol level was acceptable. We will follow.
[2017-09-21] MEDS: HYDROcodone/Acetaminophen 5/325 mg Tablet PO PRN ×2 (04:50→14:18)
[2017-09-21 05:58] LABS: Anion Gap 19 mmol/L (10-20); BUN (Urea Nitrogen) 34 mg/dL (8.4-25.7); Calc. Creatinine Clearance 13 mL/min (70-130); Calcium 8.9 mg/dL (7.8-10.44); Carbon Dioxide 17 mmol/L (23-31); Chloride 99 mmol/L (98-107); Estimated GFR-MDRD 10
[2017-09-21] MEDS: Midodrine HCl 5 MG TAB PO SCH ×2 (08:10→14:18)
[2017-09-21 08:45] LABS: #Eosinphils 0.4 thou/uL (0.0-0.7); #Lymphocytes 2.2 thou/uL (1.20-3.40); #Monocytes 0.8 thou/uL (0.11-0.59); #Neutrophils 3.7 thou/uL (1.40-6.50); %Basophils 0.6 % (0.0-1.0); %Eosinophils 5.1 % (0.0-10.0); %Lymphocytes 30.6 % (21.0-51.0); Hematocrit 36.1 % (42.0-52.0); Mean Platelet Volume 8.7 fL (7.4-10.4); Red Blood Cell (RBC) Count 4.23 mill/uL (4.70-6.10)
[2017-09-21 09:24] LABS: Hypochromia SLIGHT = 6-15 cells (100X) (0-5/hpf)
[2017-09-21] MEDS: Metoprolol Tartrate 25 MG TAB PO SCH (10:58)
[2017-09-21] MEDS: Amlodipine 5 MG TAB PO SCH (11:23)
--- NOTE | 2017-09-21 11:40 | PDOC.PN ---
- Subjective Encounter Start Date: 09/21/17 Encounter Start Time: 09:20 pt is max assist, so now family agreed with rehab placement - Objective Resuscitation Status: Resuscitation Status FULL:Full Resuscitation MAR Reviewed: Yes Vital Signs & Weight: Vital Signs (12 hours) Temp Pulse Resp BP Pulse Ox 09/21/17 11:07 97.8 F 72 12 119/68 98 09/21/17 08:00 98 F 73 18 93/59 L 97 Weight Admit Weight 144 lb 6.4 oz Weight 149 lb 2 oz I&O: 09/20/17 09/21/17 09/22/17 06:59 06:59 06:59 Intake Total 720 1200 Output Total 1525 Balance 720 -325 Result Diagrams: 09/21/17 08:02 09/21/17 04:21 Additional Labs: Accuchecks 09/21/17 09/21/17 09/20/17 11:22 04:36 20:09 POC Glucose 112 H 84 145 H 09/20/17 09/20/17 16:09 11:56 POC Glucose 158 H 81 Phys Exam - Physical Examination Constitutional: NAD HEENT: PERRLA, moist MMs, sclera anicteric Neck: no JVD, supple Respiratory: no wheezing, no rales, no rhonchi Cardiovascular: RRR, no significant murmur, no rub Gastrointestinal: soft, non-tender, no distention, positive bowel sounds colostomy+ right BKA Neurological: non-focal Lymphatic: no nodes Psychiatric: normal affect, A&O x 3 Skin: no rash, normal turgor Dx/Plan (1) Hyperkalemia Code(s): E87.5 - HYPERKALEMIA Status: Acute (2) Noncompliance with renal dialysis Code(s): Z91.15 - PATIENT'S NONCOMPLIANCE WITH RENAL DIALYSIS Status: Acute (3) Volume overload Code(s): E87.70 - FLUID OVERLOAD, UNSPECIFIED Status: Acute Comment: resolving (4) Diabetes mellitus, labile Code(s): E10.9 - TYPE 1 DIABETES MELLITUS WITHOUT COMPLICATIONS Status: Chronic (5) ESRD (end stage renal disease) on dialysis Code(s): N18.6 - END STAGE RENAL DISEASE; Z99.2 - DEPENDENCE ON RENAL DIALYSIS Status: Chronic (6) HTN (hypertension) Code(s): I10 - ESSENTIAL (PRIMARY) HYPERTENSION Status: Chronic Qualifiers: Hypertension type: essential hypertension Qualified Code(s): I10 - Essential (primary) hypertension (7) Normocytic anemia Code(s): D64.9 - ANEMIA, UNSPECIFIED Status: Chronic (8) Peripheral vascular disease Code(s): I73.9 - PERIPHERAL VASCULAR DISEASE, UNSPECIFIED Status: Chronic (9) Pressure ulcer of sacral region, stage 4 Code(s): L89.154 - PRESSURE ULCER OF SACRAL REGION, STAGE 4 Status: Chronic (10) Acute hypoxemic respiratory failure Code(s): J96.01 - ACUTE RESPIRATORY FAILURE WITH HYPOXIA Status: Resolved Comment: likely fluid overload - Plan cont current plan of care, PT/OT, healthcare social worker * will need rehab placement * medication reviewed as below * symptomatic treatment * stable and improving. * add sodium bicarbonate Review of Systems - Review of Systems ENT: negative: Ear Pain, Ear Discharge, Nose Pain, Nose Discharge, Nose Congestion, Mouth Pain, Mouth Swelling, Throat Pain, Throat Swelling, Other Respiratory: negative: Cough, Dry, Shortness of Breath, Hemoptysis, SOB with Excertion, Pleuritic Pain, Sputum, Wheezing Cardiovascular: negative: Chest Pain, Palpitations, Orthopnea, Paroxysmal Noc. Dyspnea, Edema, Light Headedness, Other Gastrointestinal: negative: Nausea, Vomiting, Abdominal Pain, Diarrhea, Constipation, Melena, Hematochezia, Other Genitourinary: negative: Dysuria, Frequency, Incontinence, Hematuria, Retention , Other Musculoskeletal: negative: Neck Pain, Shoulder Pain, Arm Pain, Back Pain, Hand Pain, Leg Pain, Foot Pain, Other - Medications/Allergies Allergies/Adverse Reactions: Allergies Allergy/AdvReac Type Severity Reaction Status Date / Time No Known Allergies Allergy Verified 07/21/17 15:20 Medications: Current Medications Acetaminophen (Tylenol) 650 mg PO Q4H PRN PRN Reason: Headache/Fever or Pain Hydrocodone Bitart/Acetaminophen ([place] 5/325) 1 tab PO Q4H PRN PRN Reason: Moderate Pain (4-6) Last Admin: 09/21/17 04:50 Dose: 1 tab Al Hydroxide/Mg Hydroxide (Maalox) 30 ml PO Q6H PRN PRN Reason: Heartburn or Indigestion Amlodipine Besylate (Norvasc) 2.5 mg PO DAILY [facility] Last Admin: 09/21/17 11:23 Dose: 2.5 mg Artificial Tears (Tears Renewed 15ml Bottle) 0 drop EA EYE PRN PRN PRN Reason: Dry Eyes Atorvastatin Calcium (Lipitor) 40 mg PO HS [facility] Last Admin: 09/20/17 20:05 Dose: 40 mg Calcium Carbonate (Tums) 1,000 mg PO Q4H PRN PRN Reason: Heartburn or Indigestion Dextrose/Water (Dextrose 50%) 25 gm SLOW IVP PRN PRN PRN Reason: Hypoglycemia Glucagon (Glucagon) 1 mg IM PRN PRN PRN Reason: Hypoglycemia Guaifenesin (Robitussin Sf) 200 mg PO Q4H PRN PRN Reason: Cough Hydralazine HCl (Apresoline) 10 mg SLOW IVP Q4H PRN PRN Reason: Systolic BP > 180 Dextrose/Water (D5w) 1,000 mls @ 0 mls/hr IV .Q0M PRN; As Directed PRN Reason: Hypoglycemia Loperamide HCl (Imodium) 2 mg PO PRN PRN PRN Reason: Diarrhea/Loose Stools Loratadine (Claritin) 10 mg PO DAILYPRN PRN PRN Reason: Sinus Symptoms Magnesium Hydroxide (Milk Of Magnesium) 30 ml PO DAILYPRN PRN PRN Reason: Constipation Metoclopramide HCl (Reglan) 5 mg PO ACHS PRN PRN Reason: Nausea/Vomiting Midodrine (Proamatine) 5 mg PO TID [facility] Last Admin: 09/21/17 08:10 Dose: 5 mg Mineral Oil/White Petrolatum (Eucerin Cream) 0 gm TOP BIDPRN PRN PRN Reason: Dry Skin Nitroglycerin (Nitrostat) 0.4 mg SL Q5MIN PRN PRN Reason: Chest Pain Ondansetron HCl (Zofran Odt) 4 mg PO Q6H PRN PRN Reason: Nausea/Vomiting Ondansetron HCl (Zofran) 4 mg IVP Q6H PRN PRN Reason: Nausea/Vomiting Pantoprazole Sodium (Protonix) 40 mg PO DAILY [facility] Last Admin: 09/21/17 08:10 Dose: 40 mg Phenol (Chloraseptic [place] 180 Ml Bot) 0 ml PO PRN PRN PRN Reason: Sore Throat Senna (Senokot) 2 tab PO HSPRN PRN PRN Reason: Constipation Sertraline HCl (Zoloft) 25 mg PO DAILY [facility] Last Admin: 09/21/17 11:24 Dose: 25 mg Sodium Chloride ([place] Nasal [place] 0.65%) 0 ml EA NARE QIDPRN PRN PRN Reason: Nasal Congestion Sodium Chloride (Flush - Normal Saline) 10 ml IVF PRN PRN PRN Reason: Saline Flush Last Admin: 09/19/17 09:14 Dose: 10 ml
[2017-09-21] MEDS ORDERED: Sodium Bicarbonate Tab 325 MG TAB PO SCH ×2 (12:45→21:00)
[2017-09-21 17:22] VITALS: BP 157/75; TEMP 98
--- NOTE | 2017-09-21 19:05 | DIS ---
DATE OF ADMISSION: 09/11/2017 DATE OF DISCHARGE: 09/21/2017 PRIMARY CARE PHYSICIAN: Gregg Robbins M.D. DISCHARGE DISPOSITION: Rehabilitation. PRIMARY DISCHARGE DIAGNOSES: 1. Hypoglycemia associated with diabetes type 2. 2. Acute metabolic encephalopathy due to hypoglycemia. 3. Hyperkalemia. SECONDARY DISCHARGE DIAGNOSES: Diabetes type 2, hypertension, dyslipidemia, end-stage renal disease on hemodialysis, anemia of renal disease, anxiety and depression, secondary hyperparathyroidism of renal origin, peripheral vascular disease with history of right [id number]-[id number] amputation. PRIMARY PROCEDURE/OPERATION: Maintenance hemodialysis while in hospital. RADIOLOGICAL INVESTIGATION: Chest x-ray showed no acute cardiopulmonary process. SIGNIFICANT LABORATORY DATA: WBC 7.0, hemoglobin 10.9, platelet 221. INR 1.1. Sodium 129, potassi um 5.9, BUN 34, creatinine 5.61, calcium 8.9. Hepatitis B surface antigen negative. DISCHARGE MEDICATIONS: Amlodipine 2.5 mg p.o. daily, Lipitor 40 mg p.o. at bedtime, ferrous sulfate 325 mg p.o. b.i.d., Reglan 5 mg p.o. a.c. and at bedtime p.r.n., Lopressor 25 mg p.o. b.i.d., midod rine 5 mg p.o. t.i.d., Protonix 40 mg p.o. daily, Zoloft 25 mg p.o. daily. CONTRAINDICATIONS: None. CODE STATUS: FULL CODE. INPATIENT CONSULTANTS: Dr. Melendez was following while in hospital for dialysis. Dr. Ruiz was c onsulted while in hospital. TEST RESULTS PENDING ON DISCHARGE: None. ALLERGIES: No known drug allergy. DISCHARGE PLAN: Post hospital, the patient will follow up with Dr. Ruiz as instructed. The concetta ent will have maintenance hemodialysis while in hospital. TEST RESULTS PENDING ON DISCHARGE: None. ALLERGIES: No known drug allergy. DISCHARGE PLAN: Post hospital, the patient will follow up with Dr. Ruiz and primary care physici an. HOSPITAL COURSE: A 62-year-old male who was admitted by me on 09/11/2017. Please see my HPI for fu rther details. The patient mainly presented for altered mental status. He had significant hypoglyc emia at home. On admission, he also had hyperkalemia. He required several D50 at home as well as i n the emergency room. Despite that, his blood sugar was recurrently dropping and that is why we tra nsferred him from tele to ICU. He stayed in the hospital for several days. His blood sugar was rem aining low more frequently. He was on oral diabetic medication that was contributing to his low blo od sugar. During this admission, we discontinued all his diabetes medication, only continue with in sulin as per sliding scale per protocol. His hyperkalemia was improved with dialysis. This patient has colostomy and that was taken care by while in hospital. He has right kqdwg-der-dwg e amputation. Dr. Ruiz was consulted for dialysis access. Dr. Chadwick was following for maintenanc e hemodialysis. This patient was initially planning to go home with home health, but he has so significant weakness and he required maximum assistance that is why the patient and family member changed their mind and now patient wanted to go to rehab with help of wrapper caser, we arranged [facility] rehabilitation. The patient was seen and examined at bedside today. Please see my progress note from today for furt her details. Paper work for discharge done. Discharge medication reconciliation done. Total time spent on discharge day 31 minutes.
--- NOTE | 2017-09-21 19:11 | PDOC.OP ---
Operative Note - Operative Note Operative Note: PROCEDURE: Left AV fistula replacement of tunneled right internal jugular hemodialysis catheter SURGEON: Elizabeth Ruiz M.D. DATE OF PROCEDURE: 09/18/2017 PREOPERATIVE DIAGNOSIS: Renal failure with poorly functioning tunneled hemodialysis catheter POSTOPERATIVE DIAGNOSIS: Renal failure with poorly functioning tunneled hemodialysis catheter HISTORY: Patient with multiple medical problems and end-stage renal failure on dialysis. He has a right IJ tunneled hemodialysis catheter but this does not work well and he has only been able to undergo partial dialysis sessions recently despite use of Cathflo. Replacement of his tunneled hemodialysis catheter was recommended. It was also recommended he undergo left upper arm cephalic AV fistula placement under the same anesthetic since he will require a long-term dialysis access option, and this is his only suitable vein. PROCEDURE IN DETAIL: After informed consent was obtained and appropriate preoperative antibiotics administered, the patient was taken to the operating room and placed in the supine position and monitored anesthesia care was administered. A preoperative block had been performed by Anesthesia and the adequacy of block was confirmed. The tunneled hemodialysis catheter was addressed first. The check and is were prepped and draped in standard sterile fashion and the exit site of the current dialysis catheter was excluded from the field with a Tegaderm. Local anesthesia was infused the skin and subcutaneous tissues of the right neck and chest and incisions made in the infraclavicular and IJ access sites. A tunneled hemodialysis catheter was brought up from the infraclavicular to the right IJ access site. The right IJ catheter currently in the vein was dissected free circumferentially clamped and divided between clamps. The patient was placed in Trendelenburg position and a wire placed through the distal portion of the catheter which was then removed. Dilators were sequentially placed over the wire under fluoroscopic guidance and the sheath and dilator placed over the wire which was then removed removed leaving the sheath in place the new hemodialysis catheter was placed through the sheath which was split and removed and good position of the catheter was confirmed by fluoroscopy. The catheter easily aspirated and easily flushed and heparin was instilled to the specified quantities and the skin at the IJ site was closed with subcutaneous and subcuticular 4-0 Monocryl sutures. The skin was snugged up around the exit site with a 4-0 Monocryl suture and Dermabond was placed at both locations. The original dialysis catheter was then removed. The cuff was quite a distance from the exit site so local anesthesia was infused and a counterincision made. The cuff was dissected free and the external portion of the catheter removed. The counterincision was closed with 4- 0 Monocryl suture and Biopatch and Tegaderm dressings were placed. Attention was then turned to the left AV fistula. The arm was prepped and draped in a standard sterile fashion and an incision made between the palpable cephalic vein and radial artery. Dissection was carried out to the cephalic vein, which had a deep sales administrator which appeared to be of adequate quality and caliber to support a fistula. This was dissected free circumferentially, ligated, and divided distally, and spatulated with Rincon scissors. This was serially interrogated with cardiac dilators and easily accepted up to a 4 mm cardiac dilator. This was flushed with heparinized saline and clamped with a bulldog clamp. The radial artery was then dissected free and found to be of adequate quality and caliber to support a fistula. The ulnar and brachial arteries were identified but not clamped as there appeared to be an adequate length of radial artery to create an anastomosis directly to this. Heparin was administered systemically and allowed to circulate for 3 minutes following which the radial artery was clamped proximally and distally. An anterior arteriotomy was created with an 11 blade scalpel and extended with Rincon scissors. An end-to-side anastomosis created with a running 6-0 Prolene suture with excellent technical result. Prior to tying down the anastomosis, the inflow was released to flush the anastomosis. Flow was established first through the fistula and then through the distal radial artery. Hemostasis at the site was confirmed, and an excellent thrill was felt in the cephalic vein outflow and an excellent bruit was heard with Doppler as well up to the upper arm. Hemostasis at the operative site was again confirmed. The incision was closed with a running 3-0 subcutaneous and running 4-0 subcuticular Monocryl sutures. Dermabond dressings were placed and the patient was taken to the recovery room in good condition. Estimated blood loss was minimal. There were no complications. There were no specimens.
--- NOTE | 2017-09-22 00:51 | PRG ---
DATE OF SERVICE: 09/21/2017 SUBJECTIVE: Patient was seen and examined at bedside and overnight events noted. Patient denies an y shortness of breath or chest pain or palpitation. No history of nausea or vomiting or diarrhea or fever or chills or cramps. OBJECTIVE: GENERAL: This is a well-built male, in no apparent distress. VITAL SIGNS: Temperature 97, pulse 69, respiratory rate 18, blood pressure 111/67. HEENT: Atraumatic, normocephalic, Oral mucosa is moist. NECK: Supple CARDIOVASCULAR: S1 and S2 heard. Rate and rhythm regular. RESPIRATORY: Clear to auscultation. GASTROINTESTINAL: Abdomen is soft. MUSCULOSKELETAL: No tenderness. No edema. DERMATOLOGIC: No skin rash. NEUROLOGIC: Alert and awake and oriented X3, No focal neurologic deficits. Moving all the extremiti es. PSYCHIATRIC: Mood and affect normal 4. LABORATORY DATA: Potassium is 4.9, BUN is 34, creatinine is 5.6. ASSESSMENT AND PLAN: 1. End-stage renal disease, continue on hemodialysis Sunday, , and Sunday. 2. Hyperkalemia. 3. Hyponatremia, potassium. 4. Edema, controlled. 5. negative. We will stop metoprolol due to hyperkalemia. Plan is to continue dialysis as tolerated.
== END 2017-09-21 18:07 | DRG 628 ==
LOC: ERS 10:44 → IMCU/EMU 18:04 → 2NO 09-12 12:31 → T4-A 09-14 14:20
PROVIDERS: ADMIT Internal Medicine; ATTEND Internal Medicine
PROC: 5A1D70Z Performance of Urinary Filtration, Intermittent, Less than 6 Hours Per Day (ICD-10-PCS; principal; 2017-09-11)
PROC: 031C0ZF Bypass Left Radial Artery to Lower Arm Vein, Open Approach (ICD-10-PCS; 2017-09-18)
PROC: 0J2SXYZ Change Other Device in Head and Neck Subcutaneous Tissue and Fascia, External Approach (ICD-10-PCS; 2017-09-18)
DX: E11.649 Type 2 diabetes mellitus with hypoglycemia without coma (principal); L89.154 Pressure ulcer of sacral region, stage 4; J96.01 Acute respiratory failure with hypoxia; G93.41 Metabolic encephalopathy; I13.2 Hypertensive heart and chronic kidney disease with heart failure and with stage 5 chronic kidney disease, or end stage renal disease; E87.2 Acidosis; E87.1 Hypo-osmolality and hyponatremia; I50.32 Chronic diastolic (congestive) heart failure; N18.6 End stage renal disease; E87.5 Hyperkalemia; E78.5 Hyperlipidemia, unspecified; F41.8 Other specified anxiety disorders; E11.22 Type 2 diabetes mellitus with diabetic chronic kidney disease; D63.1 Anemia in chronic kidney disease; Z99.2 Dependence on renal dialysis; K74.60 Unspecified cirrhosis of liver; Z89.511 Acquired absence of right leg below knee; N25.81 Secondary hyperparathyroidism of renal origin; I73.9 Peripheral vascular disease, unspecified; Z93.3 Colostomy status; E88.09 Other disorders of plasma-protein metabolism, not elsewhere classified; Z91.15 Patient's noncompliance with renal dialysis; E11.65 Type 2 diabetes mellitus with hyperglycemia
CPT/HCPCS: 36415; 36416; 71010; 80048; 80053; 80069; 82088; 82533; 83525; 84244; 84681; 85025; 85610; 85730; 87340; 90935; 93005; 96365; 96375; 96376; A4216; C1752; C1769; G0257; G8978-GP-CL; G8979-GP-CI; J0131; J0610; J1644; J1815; J2001; J2405; J2704; J2720; J2765; J2997; J3010; J7050; S0020

== ENCOUNTER 2017-10-08 08:17 | Day surgery (SDC) | payer MEDICARE ==
[2017-10-08 08:57] LABS: #Basophils 0.1 thou/uL (0.0-0.2); #Eosinphils 0.2 thou/uL (0.0-0.7); #Lymphocytes 2.8 thou/uL (1.20-3.40); #Monocytes 0.9 thou/uL (0.11-0.59); #Neutrophils 3.9 thou/uL (1.40-6.50); %Eosinophils 2.9 % (0.0-10.0); %Lymphocytes 35.8 % (21.0-51.0); %Monocytes 11.1 % (0.0-10.0); Hematocrit 39.8 % (42.0-52.0); Mean Platelet Volume 8.4 fL (7.4-10.4); Red Blood Cell (RBC) Count 4.74 mill/uL (4.70-6.10); White Blood Cell (WBC) Count 7.8 thou/uL (4.8-10.8)
[2017-10-08 09:23] LABS: Anion Gap 22 mmol/L (10-20); BUN (Urea Nitrogen) 76 mg/dL (8.4-25.7); Calc. Creatinine Clearance 0 mL/min (70-130); Calcium 10.6 mg/dL (7.8-10.44); Carbon Dioxide 18 mmol/L (23-31); Chloride 97 mmol/L (98-107); Estimated GFR-MDRD 6
[2017-10-08] MEDS ORDERED: Sodium Chloride 0.9% 20 ML ONE (09:55)
[2017-10-08] MEDS ORDERED: Bupivacaine/Epinephrine 0.25% 30 ML VIAL ONE (09:55)
[2017-10-08] MEDS ORDERED: Heparin 10,000 UNITS/1 ML VIAL ONE (09:55)
[2017-10-08] MEDS ORDERED: Fentanyl 100 MCG/2 ML VIAL ONE (10:22)
[2017-10-08] MEDS ORDERED: Midazolam HCl 2 mg/2 ml Vial ONE (10:22)
[2017-10-08] MEDS ORDERED: CEFAZOLIN/Water 2 GM/20 ML SYRINGE ONE (10:46)
--- NOTE | 2017-10-08 16:19 | PDOC.OP ---
Operative Note - Operative Note Operative Note: PROCEDURE: Replacement of right internal jugular tunneled hemodialysis catheter with fluoroscopic guidance. SURGEON: Elizabeth Ruiz M.D. DATE OF PROCEDURE: 10/08/2017 PREOPERATIVE DIAGNOSIS: Chronic renal failure with malfunctioning dialysis catheter. POSTOPERATIVE DIAGNOSIS: Chronic renal failure with malfunctioning dialysis catheter. HISTORY: Patient is status post recent replacement of the nonfunctioning right internal jugular tunneled hemodialysis catheter. He has continued to have problems with high pressures, frequent alarming, and inability to complete dialysis. This has not improved with Cathflo. 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 PROCEDURE: After informed consent was obtained and appropriate preoperative antibiotics were administered, the patient was taken to the Operating Room, placed in the supine position and monitored anesthesia care was administered. The neck and chest were prepped and draped in a standard sterile fashion, excluding the old exit site from the field with a Tegaderm, and the patient placed in Trendelenburg position. The skin and subcutaneous tissues over the right neck and chest were injected with local anesthesia and the right IJ access site reopened and the catheter dissected free. A new slightly longer catheter was tunneled from a new access site on the right chest to the right IJ access site and the old catheter was clamped and cut. A wire was placed through the old catheter into the superior vena cava and the old catheter removed and discarded. The right IJ was sequentially dilated over the wire following which a dilator and sheath were placed over the wire and the dilator and wire removed leaving the sheath in place. The catheter was tunneled through the sheath which was then split and removed leaving the catheter in place. However, the end of the catheter was seen to be in the atrium by fluoroscopy. Therefore this catheter was clamped at the IJ access site, cut and the external portion removed. A tunneled dialysis catheter the same length as the patient's pre- existing catheter was then brought up from the incision site on the chest to the right IJ access site. A wire was placed through the which was then removed leaving the wire in place. A sheath and dilator were placed over the wire and the dilator removed leaving the sheath in place. The dialysis catheter was placed through the sheath which was split and removed leaving the catheter in place. This was confirmed by fluoroscopy to be in good position in the superior vena cava with no kinking of the course of the catheter. Both ports easily aspirated dark venous nonpulsatile blood and easily flushed without resistance. Heparin was instilled to the quantity specified on the hub, and the hub was secured to the skin with 3-0 nylon sutures. The skin incision at the neck was closed in two layers with 4-0 Monocryl suture and Dermabond dressings were placed. The skin at the exit site was snugged up around the catheter with 4-0 Monocryl suture and Dermabond was placed there as well. Once the Dermabond was dry, a Biopatch and Tegaderm dressing was placed at the exit site. The old catheter was then removed and a gauze and Tegaderm dressing placed at the exit site. The patient was taken to Recovery in good condition. Estimated blood loss was minimal. There were no complications. There were no specimens.
--- NOTE | 2017-10-08 16:51 | RAD ---
CHEST ONE VIEW: History: Dialysis catheter placement. Comparison: 09-18-17 FINDINGS: Cardiac silhouette and pulmonary vasculature are unremarkable. Mediastinum is midline with aortic ivelisse cification. Right internal jugular dialysis catheter is in good position with the catheter tips overl sangita the superior vena cava. There is no evidence of pneumothorax. IMPRESSION: Right dialysis catheter is in good radiographic position. POS: [facility]
== END 2017-10-08 13:52 | disposition home or self-care (01) ==
LOC: SDC 08:17
PROVIDERS: ATTEND Surgery
PROC: 0J2SXYZ Change Other Device in Head and Neck Subcutaneous Tissue and Fascia, External Approach (ICD-10-PCS; principal; 2017-10-08)
DX: N18.6 End stage renal disease (principal); Z87.891 Personal history of nicotine dependence; Z98.890 Other specified postprocedural states
CPT/HCPCS: 36581; 71010; 80048; 85025; C1752; C1769; A4216; J1644; J2250; J3010

== ENCOUNTER 2017-10-19 13:53 | Day surgery (SDC) | payer MEDICARE ==
[2017-10-18 17:06] VITALS: BMI 20.2
[2017-10-19] MEDS ORDERED: Sodium Chloride 0.9% 20 ML ONE (14:47)
[2017-10-19] MEDS ORDERED: Bupivacaine/Epinephrine 0.25% 30 ML VIAL ONE (14:47)
[2017-10-19] MEDS ORDERED: Heparin 10,000 UNITS/1 ML VIAL ONE (14:47)
[2017-10-19] MEDS ORDERED: Lidocaine 0.5%/Epinephrine 1:200,000 50 ml Vial ONE (14:47)
[2017-10-19] MEDS ORDERED: Lidocaine 2% w/Epinephrine 1:200K 20 ML VIAL ONE (14:48)
[2017-10-19] MEDS ORDERED: Lidocaine 2% PF 5 ML VIAL ONE (14:52)
[2017-10-19 15:07] LABS: #Eosinphils 0.3 thou/uL (0.0-0.7); #Lymphocytes 1.7 thou/uL (1.20-3.40); #Monocytes 1.1 thou/uL (0.11-0.59); #Neutrophils 4.8 thou/uL (1.40-6.50); %Basophils 0.5 % (0.0-1.0); %Eosinophils 3.4 % (0.0-10.0); %Lymphocytes 21.9 % (21.0-51.0); %Monocytes 13.3 % (0.0-10.0); Hematocrit 38.9 % (42.0-52.0); Mean Platelet Volume 8.4 fL (7.4-10.4); Red Blood Cell (RBC) Count 4.49 mill/uL (4.70-6.10); White Blood Cell (WBC) Count 7.9 thou/uL (4.8-10.8)
[2017-10-19 15:27] LABS: Anion Gap 20 mmol/L (10-20); BUN (Urea Nitrogen) 89 mg/dL (8.4-25.7); Calc. Creatinine Clearance 8 mL/min (70-130); Calcium 9.6 mg/dL (7.8-10.44); Carbon Dioxide 16 mmol/L (23-31); Chloride 98 mmol/L (98-107); Estimated GFR-MDRD 6
[2017-10-19] MEDS ORDERED: Propofol 200 MG/20 ML VIAL ONE (16:03)
[2017-10-19] MEDS ORDERED: Lidocaine 1% PF 5 ML VIAL ONE (16:03)
[2017-10-19] MEDS ORDERED: Midazolam HCl 2 mg/2 ml Vial ONE (16:04)
[2017-10-19] MEDS ORDERED: Fentanyl 100 MCG/2 ML VIAL ONE (16:04)
[2017-10-19] MEDS ORDERED: CEFAZOLIN/Water 2 GM/20 ML SYRINGE ONE (16:25)
--- NOTE | 2017-10-19 20:09 | RAD ---
PORTABLE UPRIGHT FRONTAL CHEST RADIOGRAPH 10/19/17 COMPARISON: 10/08/17 HISTORY: Evaluate chest following dialysis catheter placement. FINDINGS: There is a right sided dialysis catheter, distal tip overlying the expected location of the superior vena cava. No pneumothorax, pleural fluid, focal consolidation, or alveolar edema. There is atheroscl erotic calcification in the aortic arch. IMPRESSION: Right sided dialysis catheter present. No evidence for pneumothorax. POS: [facility]
== END 2017-10-19 18:30 | disposition home or self-care (01) ==
LOC: SDC 13:53
PROVIDERS: ATTEND Surgery
PROC: 0JPT3XZ Removal of Tunneled Vascular Access Device from Trunk Subcutaneous Tissue and Fascia, Percutaneous Approach (ICD-10-PCS; principal; 2017-10-19)
PROC: 0JH63XZ Insertion of Tunneled Vascular Access Device into Chest Subcutaneous Tissue and Fascia, Percutaneous Approach (ICD-10-PCS; 2017-10-19)
DX: T82.41XA Breakdown (mechanical) of vascular dialysis catheter, initial encounter (principal); N18.6 End stage renal disease; Z98.890 Other specified postprocedural states
CPT/HCPCS: 36558; 36589; 71010; 80048; 85025; C1752; C1769; A4216; J1644; J2001; J2250; J2704; J3010

== ENCOUNTER 2017-12-14 05:45 | Day surgery (SDC) | payer MEDICARE ==
[2017-12-13 14:43] VITALS: BMI 38.7
[2017-12-14] MEDS ORDERED: Bupivacaine 0.25% HCL 30 ML VIAL ONE (06:43)
[2017-12-14] MEDS ORDERED: Heparin 5,000 UNITS/ML VIAL ONE (06:43)
[2017-12-14] MEDS ORDERED: Protamine Sulfate 50 MG/5 ML VIAL ONE (06:43)
[2017-12-14] MEDS ORDERED: Lidocaine 2% w/Epinephrine 1:200K 20 ML VIAL ONE (06:43)
[2017-12-14] MEDS ORDERED: CEFAZOLIN/Water 2 GM/20 ML SYRINGE ONE (06:58)
[2017-12-14] MEDS ORDERED: Midazolam HCl 2 mg/2 ml Vial ONE (07:30)
[2017-12-14] MEDS ORDERED: Fentanyl 100 MCG/2 ML VIAL ONE ×2 (07:30→07:37)
[2017-12-14 07:33] LABS: Hemoglobin 11.3 g/dL (14.0-18.0); Mean Corpuscular HGB CONC 30.7 g/dL (32.0-36.0); Mean Corpuscular Hemoglobin 27.4 pg (27.0-31.0); Mean Platelet Volume 7.9 fL (7.4-10.4); Platelet Count 297 thou/uL (130-400); RBC Distribution Width 15.4 % (11.5-14.5); Red Blood Cell (RBC) Count 4.13 mill/uL (4.70-6.10); White Blood Cell (WBC) Count 6.5 thou/uL (4.8-10.8)
[2017-12-14 07:53] LABS: Anion Gap 18 mmol/L (10-20); BUN (Urea Nitrogen) 49 mg/dL (8.4-25.7); Calc. Creatinine Clearance 20 mL/min (70-130); Calcium 9.3 mg/dL (7.8-10.44); Carbon Dioxide 24 mmol/L (23-31); Chloride 98 mmol/L (98-107); Estimated GFR-MDRD 8; Glucose 106 mg/dL (80-115); Potassium 5.9 mmol/L (3.5-5.1); Sodium 134 mmol/L (136-145)
[2017-12-14 08:11] LABS: Band 4 % (5-11); Eosinophils 2 % (0-10); Lymphocytes 30 % (21-51); MDiff Complete? YES; Monocytes 17 % (0-10); Neutrophil 47 % (42-75); RBC Morphology Normal
[2017-12-14] MEDS ORDERED: Iothalamate Meglumine 60% 50 ML VIAL FS ONE (08:59)
[2017-12-14] MEDS ORDERED: Diprivan 0 ML ONE (09:25)
[2017-12-14] MEDS ORDERED: Propofol 500 MG/50 ML VIAL ONE (09:27)
[2017-12-14] MEDS ORDERED: Heparin 10,000 UNITS/ 10 ML VIAL ONE ×2 (13:17→14:25)
[2017-12-14] MEDS ORDERED: HYDROcodone/Acetaminophen 5/325 mg Tablet ONE (13:17)
[2017-12-14] MEDS ORDERED: Bupivacaine HCl 0.5%/Epinephrine 1:200,000/PF 30 ml Vial ONE ×2 (13:51)
[2017-12-14] MEDS ORDERED: Ropivacaine 0.5% HCl/PF (150 MG/30 ML VIAL) ONE (13:51)
[2017-12-14] MEDS ORDERED: Ropivacaine 0.2% HCl/PF (40 MG/20 ML VIAL) ONE (13:51)
[2017-12-14] MEDS ORDERED: Lidocaine 1% PF 5 ML VIAL ONE (14:25)
[2017-12-14] MEDS ORDERED: PHENYLEPHRINE-NS 100 MCG/ML 10 ML SYRINGE ONE (14:25)
[2017-12-14] MEDS ORDERED: Propofol 200 MG/20 ML VIAL ONE (14:25)
--- NOTE | 2017-12-17 13:39 | OP ---
DATE OF SERVICE: 12/14/2017 PREOPERATIVE DIAGNOSIS: Sclerotic of left arteriovenous fistula. POSTOPERATIVE DIAGNOSIS: Sclerotic of left arteriovenous fistula. PROCEDURE PERFORMED: Revision of left arteriovenous fistula with intraoperative angiogram. HISTORY: Mr. Jerez is a 62-year-old man who underwent a left upper arm AV fistula with cephalic v ein outflow. This was found to have a good thrill proximally, but was not maturing appropriately. I n an ultrasound, he appeared to have a stenotic segment. It was felt that this would not be definiti vely addressed by angioplasty, so recommendation was made to proceed with operative revision. PROCEDURE IN DETAIL: After informed consent was obtained and appropriate preoperative antibiotics ad ministered, the patient was taken to the operating room. He was placed in supine position and anesth esia was administered. He was prepped and draped in a standard sterile fashion and an incision made over the cephalic vein fistula in the stenotic area. The patient was found to have a well dilated an d arterialized proximal cephalic vein and distal, but a 1.5-2 cm segment which appeared to be extreme ly stenotic were occluded. The patient had a good size collateral, but this also appeared to have a stricture in the mid segment. The decision was made to mobilize the upper cephalic vein, spatulate t hrough the collateral vessels on both ends of the stenotic segments and re-anastomose. Unfortunately , due to the patient's body habitus, there was very little laxity in the upper arm cephalic vein. So , the vein had to be dissected out almost to his shoulder in order to obtain enough length to create anastomosis without tension. The veins were flushed with heparinized saline and clamped and the vein spatulated through the collaterals and the ends were brought together and anastomosed with a running 6-0 Prolene suture with excellent results. Following this, there was excellent flow through the cep halic vein with an easily palpable thrill and a good bruit by Doppler. The wound was examined for he mostasis and a few small oozing points were cauterized. Surgicel strips were placed along the length of the incision and the subcutaneous tissues were closed with a running subcutaneous 3-0 Monocryl gipson ture. The skin was closed with raquel and a Prevena Wound-VAC placed over this and the arm was wrap ped with an Luis wrap and the patient was taken to recovery in good condition. Estimated blood loss w as minimal. There were no complications. There were no specimens.
== END 2017-12-14 14:00 | disposition home or self-care (01) ==
LOC: SDC 05:45
PROVIDERS: ATTEND Surgery
PROC: 03180ZD Bypass Left Brachial Artery to Upper Arm Vein, Open Approach (ICD-10-PCS; principal; 2017-12-14)
DX: T82.858A Stenosis of other vascular prosthetic devices, implants and grafts, initial encounter (principal); I12.0 Hypertensive chronic kidney disease with stage 5 chronic kidney disease or end stage renal disease; E11.22 Type 2 diabetes mellitus with diabetic chronic kidney disease; N18.6 End stage renal disease; E78.5 Hyperlipidemia, unspecified; Z79.84 Long term (current) use of oral hypoglycemic drugs; Z79.899 Other long term (current) drug therapy; Z99.2 Dependence on renal dialysis
CPT/HCPCS: 80048; 85025; J0670; J1644; J2001; J2250; J2704; J2720; J2795; J3010; Q9961; S0020

== ENCOUNTER 2017-12-19 15:54 | Observation (INO) | payer MEDICARE ==
[2017-12-19 16:38] LABS: #Eosinphils 0.3 thou/uL (0.0-0.7); #Lymphocytes 1.7 thou/uL (1.20-3.40); #Monocytes 0.7 thou/uL (0.11-0.59); #Neutrophils 3.9 thou/uL (1.40-6.50); %Basophils 0.7 % (0.0-1.0); %Eosinophils 4.2 % (0.0-10.0); %Lymphocytes 25.2 % (21.0-51.0); %Monocytes 10.7 % (0.0-10.0); %Neutrophils 59.2 % (42.0-75.0); Hemoglobin 11.7 g/dL (14.0-18.0); Mean Corpuscular HGB CONC 31.6 g/dL (32.0-36.0); Mean Corpuscular Hemoglobin 28.3 pg (27.0-31.0); Mean Corpuscular Volume 89.5 fl (80.0-94.0); Mean Platelet Volume 7.7 fL (7.4-10.4); Platelet Count 306 thou/uL (130-400); Red Blood Cell (RBC) Count 4.14 mill/uL (4.70-6.10); White Blood Cell (WBC) Count 6.6 thou/uL (4.8-10.8)
[2017-12-19 16:55] LABS: ALT (SGPT) Less than 7 U/L (8-55); AST (SGOT) 14 U/L (5-34); Albumin 3.8 g/dL (3.4-4.8); Alkaline Phosphatase 141 U/L (40-150); Anion Gap 23 mmol/L (10-20); BUN (Urea Nitrogen) 59 mg/dL (8.4-25.7); Bilirubin, Total 0.2 mg/dL (0.2-1.2); Calc. Creatinine Clearance 0 mL/min (70-130); Calcium 9.4 mg/dL (7.8-10.44); Carbon Dioxide 16 mmol/L (23-31); Chloride 99 mmol/L (98-107); Estimated GFR-MDRD 7; Globulin 4.8 g/dL (2.4-3.5); Glucose 208 mg/dL (80-115); Potassium 6.1 mmol/L (3.5-5.1); Protein, Total 8.6 g/dL (5.8-8.1); Sodium 132 mmol/L (136-145)
[2017-12-19] MEDS ORDERED: Ondansetron HCl/PF 4 MG/2 ML Vial IVP PRN (20:21)
[2017-12-19] MEDS ORDERED: Ondansetron ODT 4 MG TAB SL PRN (20:21)
[2017-12-19] MEDS ORDERED: Acetaminophen 325 MG TAB PO PRN (20:21)
[2017-12-20 00:11] LABS: HBSAg Index 0.61 S/CO (0-0.99); Hep B Surf Ag Non-Reactive S/CO (NonReactive)
[2017-12-20] MEDS ORDERED: Acetaminophen 325 MG TAB PO PRN (03:44)
[2017-12-20] MEDS ORDERED: Senokot 8.6 MG TAB PO PRN (03:44)
[2017-12-20] MEDS ORDERED: Nitroglycerin 0.4 MG TAB (25 Tab Bottle) PO PRN (03:44)
[2017-12-20] MEDS ORDERED: Dextrose 50% Abboject 50 ML SYRINGE SLOW IVP PRN (03:44)
[2017-12-20] MEDS ORDERED: Dextrose 5% in Water 1,000 ML IV PRN (03:44)
[2017-12-20] MEDS ORDERED: Insulin Regular 300 UNITS/3 ML VIAL SC PRN ×2 (03:44)
[2017-12-20] MEDS ORDERED: Ondansetron HCl/PF 4 MG/2 ML Vial IVP PRN (03:44)
[2017-12-20] MEDS ORDERED: Ondansetron ODT 4 MG TAB PO PRN (03:44)
[2017-12-20] MEDS ORDERED: hydrALAZINE 20 MG/ML VIAL SLOW IVP PRN (03:46)
--- NOTE | 2017-12-20 04:23 | HP ---
DATE OF ADMISSION: 12/19/2017 The patient was seen and examined on 12/19/2017. PRIMARY CARE PHYSICIAN: Gregg Robbins M.D. PRIMARY COOLING TOWER OPERATOR: Dmitriy Melendez M.D. CHIEF COMPLAINT: Abnormal labs. HISTORY OF PRESENT ILLNESS: The patient is a 62-year-old male with end-stage renal disease on hemodi alysis, hypertension, and diabetes mellitus type 2, was presented to the emergency room with elevated potassium. The patient denies any chest pain, shortness of breath, palpitations or noncompliance wi th hemodialysis. He denies any fever, chills, or dietary noncompliance. No chest pain, shortness of breath, palpitations reported. He denies any nausea, vomiting. In the emergency room, initial vital signs showed temperature 97.7, respiration of 18, pulse rate of 94 with a blood pressure 105/64 with O2 saturation of 100% on room air. He underwent emergent hemodi alysis per Nephrology. PAST MEDICAL HISTORY: 1. Hypertension. 2. Diabetes mellitus type 2. 3. Dyslipidemia. 4. End-stage renal disease on hemodialysis. 5. Anemia of renal disease. 6. Anxiety and depression. 7. Secondary hyperparathyroidism. 8. Peripheral vascular disease, status post right tboxg-bxk-grwz amputation. PAST SURGICAL HISTORY: 1. Dialysis access. The patient has IJ tunneled hemodialysis catheter that was placed in October. He also had recent surgical intervention for dialysis access. 2. Right tftbe-txj-[id number] amputation. 3. Colostomy. ALLERGIES: No known drug allergies. CURRENT HOME MEDICATIONS: The patient does not remember any of his home medications. SOCIAL HISTORY: Currently lives at home. No tobacco, alcohol or drug use. FAMILY HISTORY: Diabetes runs in his family. REVIEW OF SYSTEMS: The following complete review of systems was negative, unless otherwise mentioned in the HPI or below: Constitutional: Weight loss or gain, ability to conduct usual activities. Skin: Rash, itching. Eyes: Double vision, pain. ENT/Mouth: Nose bleeding, neck stiffness, pain, tenderness. Cardiovascular: Palpitations, dyspnea on exertion, orthopnea. Respiratory: Shortness of breath, wheezing, cough, hemoptysis, fever or night sweats. Gastrointestinal: Poor appetite, abdominal pain, heartburn, nausea, vomiting, constipation, or diarr hea. Genitourinary: Urgency, frequency, dysuria, nocturia. Musculoskeletal: Pain, swelling. Neurologic/Psychiatric: Anxiety, depression. Allergy/Immunologic: Skin rash, bleeding tendency. PHYSICAL EXAMINATION: VITAL SIGNS: Temperature 97.7, respiration 18, pulse of 94, blood pressure of 105/64 with O2 saturat ion 100% on room air. GENERAL: A 62-year-old male in no apparent distress. HEENT: Head: Atraumatic, normocephalic. Sclerae are anicteric. Moist mucous membrane, no oral les ion. NECK: Supple, no JVD appreciated. No carotid bruit. LUNGS: Essentially clear to auscultation bilaterally. HEART: S1, S2 present. Regular rate and rhythm. No rubs or gallops appreciated. ABDOMEN: Soft, nontender, bowel sounds present. Colostomy noted. Healed midline scar noted. EXTREMITIES: No edema or calf tenderness. The patient is status post right zemxa-hum-mgzp amputatio n. SKIN: Warm and dry. LYMPH NODES: No palpable lymph nodes in the neck. PERIPHERAL VASCULAR: Radial pulses palpable bilaterally. MUSCULOSKELETAL: No joint swelling or tenderness. LABORATORY FINDINGS: Potassium 6.1 with bicarbonate of 16, BUN 59, creatinine 8.1, glucose of 208. Chemistries showed sodium was 6.6 with hemoglobin 11.7, platelet 306. Chest x-ray last hospitalizati on by my review was negative. EKG by my review showed sinus rhythm with left axis deviation without significant ST-T wave changes. IMPRESSION: 1. Hyperkalemia of unclear etiology. 2. End-stage renal disease on hemodialysis without noncompliance. 3. Diabetes mellitus type 2. 4. Hypertension. 5. Dyslipidemia. 6. Anemia of renal disease. 7. Anxiety and depression. 8. Peripheral vascular disease. 9. History of right uhbor-pxw-kcdp amputation. 10. Status post colostomy. PLAN: The patient will be monitored in the observation unit. He underwent emergent hemodialysis. L abs will be repeated in a.m. He has metabolic acidosis probably secondary to renal failure versus GI bicarbonate loss. We will repeat labs in a.m. We will confirm his home medications. We will start him on sliding scale. He was extensively counseled to be compliant with his diet. Plan of care was discussed with the patient, he stated understanding. DISPOSITION: Probably in 24 hours if stable and okay with Nephrology.
[2017-12-20 05:19] LABS: Anion Gap 20 mmol/L (10-20); BUN (Urea Nitrogen) 35 mg/dL (8.4-25.7); Calc. Creatinine Clearance 0 mL/min (70-130); Calcium 9.7 mg/dL (7.8-10.44); Carbon Dioxide 22 mmol/L (23-31); Chloride 100 mmol/L (98-107); Estimated GFR-MDRD 10; Glucose 110 mg/dL (80-115); Potassium 5.8 mmol/L (3.5-5.1); Sodium 136 mmol/L (136-145)
--- NOTE | 2017-12-20 06:15 | CON ---
DATE OF CONSULTATION: 12/19/2017 NEPHROLOGY CONSULT NOTE CONSULTING PHYSICIAN: Dr. Ford REASON FOR CONSULTATION: 1. Hyperkalemia. 2. End-stage renal disease evaluation and care. REASON FOR ADMISSION: Abnormal labs. HISTORY OF PRESENT ILLNESS: A 62-year-old male with history of end-stage renal disease, hypotension, hyperkalemia, osteomyelitis, came to the hospital with abnormal labs, patient is a poor historian. Patient was found to have potassium of 8.8 at the clinic and was sent to the ED for further evaluatio n and was found to have 6.1 and patient is having emergent dialysis. No fever or chills. Denies any chest pain, no shortness of breath, no chest pain. No nausea, vomiting, diarrhea, no abdominal pain, no back pain. No skin rash. PAST MEDICAL HISTORY: Positive for end-stage renal disease, hypertension, currently hypotensive, typ e 2 diabetes, colon cancer. PAST SURGICAL HISTORY: Dialysis access placement. HOME MEDICATIONS: Not available. ALLERGIES: No known drug allergies. SOCIAL HISTORY: No smoking, alcohol, or illicit drug abuse. FAMILY HISTORY: No history of any kidney disease. REVIEW OF SYSTEMS: The following complete review of systems was negative, unless otherwise mentioned in the HPI or below: Constitutional: Weight loss or gain, ability to conduct usual activities. Sk in: Rash, itching. Eyes: Double vision, pain. ENT/Mouth: Nose bleeding, neck stiffness, pain, te nderness. Cardiovascular: Palpitations, dyspnea on exertion, orthopnea. Respiratory: Shortness of breath, wheezing, cough, hemoptysis, fever, or night sweats. Gastrointestinal: Poor appetite, abdo el pain, heartburn, nausea, vomiting, constipation, or diarrhea. Genitourinary: Urgency, frequen cy, dysuria, nocturia. Musculoskeletal: Pain, swelling. Neurologic/Psychiatric: Anxiety, depressi on. Allergy/Immunologic: Skin rash, bleeding tendency. PHYSICAL EXAMINATION: GENERAL: Patient is a thin-built male seen during dialysis. VITAL SIGNS: Temperature 97.7, pulse 94, respiratory rate 18, blood pressure 105/64. HEENT: Atraumatic, normocephalic. Oral mucosa is moist. NECK: Supple, no masses. CARDIOVASCULAR: S1, S2. Rate and rhythm are regular. RESPIRATORY: Clear. MUSCULOSKELETAL: 1+ edema. DERMATOLOGIC: No skin rash. NEUROLOGIC: Alert, awake. PSYCHIATRIC: Mood and affect normal. LABORATORY AND X-RAY FINDINGS: Potassium is 6.1, BUN is 59, creatinine is 8.1. ASSESSMENT AND PLAN: 1. End-stage renal disease. We will have emergent dialysis. 2. Severe hyperkalemia, plan is to have emergent dialysis. 3. Hyponatremia, mild. 4. Edema, controlled. 5. Hypoalbuminemia. 6. Hypotension. We will have dialysis. Plan is to have emergent dialysis. Patient was seen during dialysis, tolerating well. He will have dialysis today as tolerated. . If having persistent issues might need surgery consult.
[2017-12-20] MEDS: Docusate 100 MG CAP PO SCH ×2 (08:14→08:15)
--- NOTE | 2017-12-20 08:40 | PDOC.PN ---
- Subjective Encounter Start Date: 12/20/17 Encounter Start Time: 08:38 Mr. Jerez was seen in follow-up. He says he feels like " 100 bucks". He does not have any complaints. He is not sure why his potassium has been running so high. (He did however have a [employer] bag of food at his bedside) - Objective Resuscitation Status: Resuscitation Status FULL:Full Resuscitation MAR Reviewed: Yes Vital Signs & Weight: Vital Signs (12 hours) Temp Pulse Resp BP BP Pulse Ox 12/20/17 07:45 98.2 F 95 20 114/70 97 12/20/17 05:00 98.3 F 97 18 93/52 L 96 12/20/17 02:17 98.2 F 108 H 18 12/20/17 00:00 98.2 F 108 H 18 116/73 96 Weight Weight 178 lb 8 oz I&O: 12/19/17 12/20/17 12/21/17 06:59 06:59 06:59 Intake Total 60 Output Total 900 Balance -840 Result Diagrams: 12/19/17 16:28 12/20/17 04:21 Phys Exam - Physical Examination HEENT: PERRLA Respiratory: no wheezing, no rales, no rhonchi, clear to auscultation bilateral Cardiovascular: RRR, no significant murmur Gastrointestinal: soft, non-tender, positive bowel sounds Musculoskeletal: no edema Stump site looks good on the left foot right stump is covered Dx/Plan (1) Diabetes mellitus type 2 in nonobese Code(s): E11.9 - TYPE 2 DIABETES MELLITUS WITHOUT COMPLICATIONS Status: Acute (2) Hyperkalemia Code(s): E87.5 - HYPERKALEMIA Status: Acute (3) ESRD (end stage renal disease) on dialysis Code(s): N18.6 - END STAGE RENAL DISEASE; Z99.2 - DEPENDENCE ON RENAL DIALYSIS Status: Chronic (4) HTN (hypertension) Code(s): I10 - ESSENTIAL (PRIMARY) HYPERTENSION Status: Chronic Qualifiers: Hypertension type: essential hypertension Qualified Code(s): I10 - Essential (primary) hypertension (5) Peripheral vascular disease Code(s): I73.9 - PERIPHERAL VASCULAR DISEASE, UNSPECIFIED Status: Chronic - Plan * Hyperkalemia- Better after dialysis, however his potassium level is still 5.8 * Dialysis as per Nephrology * HTN- blood pressure is stable * DM- blood glucose is stable.
[2017-12-20] MEDS ORDERED: Famotidine 20 MG TAB PO SCH (09:00)
--- NOTE | 2017-12-20 15:02 | PRG ---
DATE OF SERVICE: 12/20/2017 SUBJECTIVE: Patient was seen and examined at bedside and overnight events noted. Patient denies any shortness of breath or chest pain or palpitation. No history of nausea or vomiting or diarrhea or f ever or chills or cramps. OBJECTIVE: GENERAL: This is a well-built male in no apparent distress. VITAL SIGNS: Temperature 98.0, pulse 95, respiratory rate 18, blood pressure 110/63. HEENT: Atraumatic, normocephalic. Oral mucosa is moist. NECK: Supple. CARDIOVASCULAR: S1, S2 heard. Rate and rhythm regular. RESPIRATORY: Clear to auscultation. GASTROINTESTINAL: Abdomen is soft. MUSCULOSKELETAL: No tenderness. No edema. DERMATOLOGIC: No skin rash. NEUROLOGIC: Alert and awake and oriented x3. No focal neurologic deficits. Moving all the extremiti es. PSYCHIATRIC: Mood and affect normal. LABORATORY DATA: Potassium is 5.8, BUN is 30, and creatinine is 5.7. ASSESSMENT AND PLAN: 1. End-stage renal disease. We will continue on dialysis, TTS. 2. Hyperkalemia with extra session of dialysis today and we will continue on dialysis. Limit potass ium in the diet. Agree with dietitian consult. 3. Acidosis. 4. Hypoalbuminemia. 5. Anemia, mild. 6. Edema, controlled. 7. Hypertension, stable. 8. Plan is to continue on dialysis as tolerated.
[2017-12-20 17:55] VITALS: BP 90/51; TEMP 96.9
--- NOTE | 2017-12-20 23:53 | DIS ---
PRIMARY CARE PHYSICIAN: Dr. Robbins. DATE OF ADMISSION: 12/19/2017 DATE OF DISCHARGE: 12/20/2017 DISCHARGE DISPOSITION: Home. PRIMARY DISCHARGE DIAGNOSES: 1. Hyperkalemia associated with end-stage renal disease. 2. End-stage renal disease, on hemodialysis. 3. Peripheral vascular disease. 4. Diabetes mellitus, type 2. 5. Dyslipidemia. 6. Hyperparathyroidism. DISCHARGE MEDICATIONS: These are that as on admission and include fludrocortisone 0.1 mg twice a day . CODE STATUS: FULL CODE. ALLERGIES: No known drug allergies. HOSPITAL COURSE: Mr. Jerez is a pleasant 62-year-old gentleman who was sent over to our hospital due to elevated potassium, which was noted on a routine followup appointment with Dr. Melendez. His p otassium was reported to be around 8. At that time, he had no symptoms. He was sent to the ER where they repeated his potassium and it was 6.1. He underwent urgent dialysis and his potassium improved overnight to 5.8 and he received another dialysis session to remove additional potassium. He was al so seen by dietitian during his hospital stay to help him with compliance with dietary restrictions w ith regards to potassium. After his dialysis today, he will be discharged home and to have a close o utpatient followup.
== END 2017-12-20 18:47 | disposition home or self-care (01) ==
LOC: ERS 15:54 → 2SW 17:35
PROVIDERS: ADMIT Internal Medicine; ATTEND Internal Medicine
DX: E11.22 Type 2 diabetes mellitus with diabetic chronic kidney disease (principal); I13.2 Hypertensive heart and chronic kidney disease with heart failure and with stage 5 chronic kidney disease, or end stage renal disease; I50.32 Chronic diastolic (congestive) heart failure; N18.6 End stage renal disease; E87.5 Hyperkalemia; E11.51 Type 2 diabetes mellitus with diabetic peripheral angiopathy without gangrene; E78.5 Hyperlipidemia, unspecified; E21.3 Hyperparathyroidism, unspecified; D63.1 Anemia in chronic kidney disease; F41.8 Other specified anxiety disorders; E87.2 Acidosis; R60.9 Edema, unspecified; E87.1 Hypo-osmolality and hyponatremia; I95.9 Hypotension, unspecified; E88.09 Other disorders of plasma-protein metabolism, not elsewhere classified; Z99.2 Dependence on renal dialysis; Z79.52 Long term (current) use of systemic steroids; Z79.899 Other long term (current) drug therapy; Z89.511 Acquired absence of right leg below knee; Z93.3 Colostomy status; Z85.038 Personal history of other malignant neoplasm of large intestine
CPT/HCPCS: 80048; 80053; 82962; 85025; 87340; 93005; 99285; G0378; 36415; 36416; 90935; G0257

== ENCOUNTER 2018-01-21 06:47 | Day surgery (SDC) | payer MEDICARE ==
[2018-01-21 09:04] VITALS: BP 106/48; TEMP 98
--- NOTE | 2018-01-21 09:39 | SPC ---
LEFT UPPER EXTREMITY DIALSIS FISTULOGRAM: HISTORY: Non-maturing fistula. FINDINGS: Informed consent was obtained from the patient. The left upper extremity dialysis fistula was locali zed using fluorosocpic guidance. The overlying skin was prepped and draped in the usual sterile velásquez er. The arterial anastomosis was accessed using a 4 American micropuncture set. Fistulogram was perfo rmed. There is an approximately 2 cm area of irregular caliber change in the proximal aspect of the fistula where the patient has had previous surgical repair. This area appears to have recurred. It appears to have extrinsic compression by surrounding scar. The area is in an area where the fistula was acc essed but is not amenable to percutaneous biopsy at this time as there is stenosis proximal and dista l to the insertion site. The rest of the left upper extremity dialysis fistula is intact. IMPRESSION: Left upper extremity arterial anastomotic area of approximately 2 cm stenosis compatible with areas o f scarring at the revision site. POS: [facility]
[2018-01-22] MEDS ORDERED: Prevnar 13-Val Conj/PF 0.5 ML SYRINGE IM ONE (09:00)
[2018-01-22] MEDS ORDERED: FLU VACC QS2017-18 36 mo. & older 0.5 ML SYRINGE IM ONE (09:00)
== END 2018-01-21 09:30 | disposition home or self-care (01) ==
LOC: SPEC 06:47
PROVIDERS: ATTEND Surgery
PROC: B51W1ZZ Fluoroscopy of Dialysis Shunt/Fistula using Low Osmolar Contrast (ICD-10-PCS; principal; 2018-01-21)
DX: T82.858A Stenosis of other vascular prosthetic devices, implants and grafts, initial encounter (principal); I12.0 Hypertensive chronic kidney disease with stage 5 chronic kidney disease or end stage renal disease; E11.22 Type 2 diabetes mellitus with diabetic chronic kidney disease; N18.6 End stage renal disease; D63.0 Anemia in neoplastic disease; N25.81 Secondary hyperparathyroidism of renal origin; E78.5 Hyperlipidemia, unspecified; E11.51 Type 2 diabetes mellitus with diabetic peripheral angiopathy without gangrene; F41.8 Other specified anxiety disorders; Z93.3 Colostomy status; Z89.511 Acquired absence of right leg below knee; Z99.2 Dependence on renal dialysis
CPT/HCPCS: 36901

== ENCOUNTER 2018-02-07 17:34 | Inpatient (IN) | payer MEDICARE ==
[2018-02-07] MEDS ORDERED: Ondansetron HCl/PF 4 MG/2 ML Vial ONE (20:25)
[2018-02-07] MEDS ORDERED: Morphine 4 MG/ML VIAL ONE (20:25)
[2018-02-07 20:57] LABS: Hemoglobin 12.2 g/dL (14.0-18.0); Mean Corpuscular HGB CONC 31.1 g/dL (32.0-36.0); Mean Corpuscular Hemoglobin 26.8 pg (27.0-31.0); Mean Corpuscular Volume 86.1 fl (80.0-94.0); Mean Platelet Volume 7.2 fL (7.4-10.4); Platelet Count 623 thou/uL (130-400); RBC Distribution Width 14.7 % (11.5-14.5); Red Blood Cell (RBC) Count 4.57 mill/uL (4.70-6.10); White Blood Cell (WBC) Count 25.3 thou/uL (4.8-10.8)
[2018-02-07 21:14] LABS: Band 10 % (5-11); Lymphocytes 3 % (21-51); MDiff Complete? YES; Monocytes 4 % (0-10); Neutrophil 83 % (42-75)
[2018-02-07 21:16] LABS: ALT (SGPT) 15 U/L (8-55); AST (SGOT) 27 U/L (5-34); Albumin 3.5 g/dL (3.4-4.8); Alkaline Phosphatase 207 U/L (40-150); Anion Gap 23 mmol/L (10-20); BUN (Urea Nitrogen) 35 mg/dL (8.4-25.7); Bilirubin, Total 0.3 mg/dL (0.2-1.2); Calc. Creatinine Clearance 0 mL/min (70-130); Carbon Dioxide 24 mmol/L (23-31); Chloride 89 mmol/L (98-107); Estimated GFR-MDRD 8; Glucose 231 mg/dL (80-115); Magnesium 1.9 mg/dL (1.6-2.6); Potassium 4.7 mmol/L (3.5-5.1); Protein, Total 9.5 g/dL (5.8-8.1); Sodium 131 mmol/L (136-145)
[2018-02-07 21:27] LABS: CRP (Inflammatory) 35.21 mg/dL (= or < 0.5)
[2018-02-07] MEDS ORDERED: Acetaminophen 500 MG TAB ONE (21:54)
--- NOTE | 2018-02-07 22:15 | RAD ---
THREE VIEWS OF THE LEFT FOOT: 02/07/18 COMPARISON: None. HISTORY: Left leg pain and swelling. Diabetic foot infection, status post amputation. Evaluate for osteomyelit is. FINDINGS: three views of the left foot shows the patient to be status post transmetatarsal amputation of the le ft foot. Surgical clips are seen along the second metatarsal. No erosion of the amputation site is se en to suggest osteomyelitis. Soft tissue swelling is seen. IMPRESSION: No evidence of bony erosion to suggest osteomyelitis. POS: [facility]
[2018-02-07] MEDS ORDERED: Clindamycin/D5W 900 mg/50 ml Premix Bag ONE (22:35)
--- NOTE | 2018-02-07 22:55 | ULT ---
LEFT LOWER EXTREMITY VENOUS ULTRASOUND: 02/07/18 HISTORY: Left lower extremity toes amputated. There is left lower extremity redness and pain. TECHNIQUE: Multiplanar camacho scale and color doppler images obtained in a left lower extremity venous ultrasound. Spectral analysis of the doppler waveforms were performed. FINDINGS: The left common femoral vein, profunda femoral vein, superficial femoral vein, and popliteal vein are normal in appearance without visible thrombus. These vessels demonstrate normal compression, flow an d augmentation. The posterior tibial vein and greater saphenous veins are also patent. There are mildly prominent lymph nodes in the inguinal region. IMPRESSION: No evidence of left lower extremity DVT. POS: [facility]
[2018-02-08 00:41] LABS: Lactic Acid 1.3 mmol/L (0.5-2.2)
[2018-02-08] MEDS ORDERED: Morphine 4 MG/ML VIAL SLOW IVP PRN (00:58)
[2018-02-08] MEDS ORDERED: Ondansetron HCl/PF 4 MG/2 ML Vial IVP PRN ×3 (01:00→16:12)
[2018-02-08] MEDS ORDERED: Acetaminophen 325 MG TAB PO PRN (01:00)
[2018-02-08] MEDS ORDERED: Ondansetron ODT 4 MG TAB SL PRN (01:00)
[2018-02-08] MEDS ORDERED: Morphine 5 MG/ML SYRINGE SLOW IVP PRN (01:06)
[2018-02-08 01:59] VITALS: BMI 25.0
--- NOTE | 2018-02-08 05:06 | CON ---
DATE OF CONSULTATION: 02/08/2018 REASON FOR ADMISSION/CHIEF COMPLAINT: Foot wound. HISTORY OF PRESENT ILLNESS: Mr. Jerez is a 63-year-old man known to me previously from hemodialysis access procedures. When I saw the patient in my office, he appeared to have developed a recurrent stricture of his left upper arm cephalic AV fistula and we had discussed referring him to Interventional Radiology for angioplasty and stenting with plans to proceed with a right-sided AV fistula if that was unsuccessful. He came to the emergency room because of a high fever of 102 and worsening foot wounds. All of his previous amputations have been performed by Dr. Kim according to the patient. He has a right below -the-knee amputation and a left transmetatarsal amputation. His sister is at the bedside and states that when she saw him 2 weeks ago he had a small wound which was smaller than the size of a dime over the transmetatarsal amputation site near the first metatarsal head; however, on examination today, he has about a 3 x 5 cm area of necrosis and bogginess as well as erythema to the distal calf. The patient is unable to state how long it has been like this. He denies any pain and has been ambulating normally. PAST MEDICAL HISTORY: Diabetes, hyperlipidemia, hypertension, and end-stage renal failure on dialysis Sunday, Sunday, Sunday, and Sunday. 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 Chadwick and he is currently using a right IJ tunneled hemodialysis catheter. Peripheral vascular disease. Saulo's. PAST SURGICAL HISTORY: Colostomy, right below knee amputation, left transmetatarsal amputation, right IJ tunneled hemodialysis catheter, left upper arm cephalic AV fistula with revision. Debridement of Saulo's. ALLERGIES: He has no known drug allergies. OUTPATIENT MEDICATIONS: According to my last clinic notes include Reglan 10 mg p.o. b.i.d., glipizide 2.5 mg p.o. b.i.d., atorvastatin 40 mg p.o. daily and Florinef 0.1 mg p.o. b.i.d. He did not bring his medications with him today. PHYSICAL EXAMINATION: VITAL SIGNS: Temperature up to 102.1 in the ER. Heart rate 120, blood pressure 113/51, respirations 18, 100% saturated on room air. GENERAL: Reveals an ill-appearing man in no acute distress. He is flushed and somewhat drowsy in appearance. HEENT: Unremarkable. NECK: Supple, without lymphadenopathy or thyroid nodules. His right IJ catheter is in place and is nontender. There is no exudate at the exit site. HEART: Regular in its rate and rhythm. I do not appreciate any murmurs, rubs, or gallops. LUNGS: Clear anteriorly. ABDOMEN: Soft and nontender and nondistended. His colostomy is healthy with soft stool in the bag. His right IJ stump has some minor skin abrasions from the prosthesis. EXTREMITIES: His left transmetatarsal amputation has a large open area with boggy gangrenous tissue in the wound. He has erythema to his distal calf, but no significant swelling. I do not appreciate pedal or popliteal pulses on this side. NEUROLOGIC: Peripheral neuropathy is present. PSYCHIATRIC: Alert, oriented and appropriate. LABORATORY DATA: White count is elevated at 25,000, hematocrit 39.3, platelets 623. CRP is 35. Electrolytes show a slightly low sodium of 131 and chloride of 89, BUN and creatinine are 35 and 7.05, consistent with his end-stage renal failure. Glucose is 231, alkaline phosphatase is elevated at 207. He did have a plain film of his foot which shows a transmetatarsal amputation, but is otherwise unremarkable by my evaluation. ASSESSMENT: Wet gangrene of the left foot, likely a combination of poor vascular flow and pressure or rubbing on the top of his foot. I recommended debridement of the wounds and evaluation by Vascular Surgery. Dr. Kim has done all of his previous amputations and I will defer to him regarding management of the extremities; however, I expressed to the patient and his family that I think it is highly likely that he will proceed to a left below-the -knee amputation. I will let Dr. Kim know that the patient has been admitted in the morning and asked him to evaluate him. However, I did recommend that we clean up the wound tonight and place a wet to dry dressing to this. This was done at the bedside. The left foot was prepped with Betadine and the necrotic boggy tissue was excised from the dorsum of the left foot. The first metatarsal bone was palpable within the wound after removal of the overlying necrotic tissue. There was no deep abscess encountered, just necrotic infected tissues. There was no gas within the wound nor evidence of an aggressive soft tissue infection. Wet to dry dressings were placed. I did discuss the possibility of line sepsis. I feel that the patient's left foot infection is the source of his current fever, but this does put him at risk for catheter infection. I have requested that blood cultures be sent from the line as well, and this may need to be replaced. I had referred the patient for a fistulogram and stenting, but he did not follow up with me in the clinic. It does appear that he kept his appointment by chart review and that Dr. Joya did not feel that the fistula was amenable to stenting. He will likely require another fistula at some time, but I prefer not to do this while he has an active infection. We could also consider sending him to another [facility] Center to see if they feel that a stent could be placed, but again this would not be appropriate to be done in the setting of an active infection. I will continue to follow him for his dialysis needs, but will defer to Dr. Kim regarding his peripheral vascular disease. CAESAR
[2018-02-08] MEDS ORDERED: FLU VACC QS2017-18 36 mo. & older 0.5 ML SYRINGE IM ONE (09:00)
[2018-02-08] MEDS ORDERED: Prevnar 13-Val Conj/PF 0.5 ML SYRINGE IM ONE (09:00)
[2018-02-08] MEDS ORDERED: HYDROcodone/Acetaminophen 10/325 mg Tablet PO PRN ×3 (09:31→16:32)
[2018-02-08] MEDS ORDERED: Dextrose 5% in Water 1,000 ML IV PRN (09:31)
[2018-02-08] MEDS ORDERED: Temazepam 15 MG CAP PO PRN (09:31)
[2018-02-08] MEDS ORDERED: Dextrose 50% Abboject 50 ML SYRINGE SLOW IVP PRN (09:31)
[2018-02-08] MEDS ORDERED: Calcium Carbonate 500 MG ChewTAB PO PRN (09:31)
[2018-02-08] MEDS ORDERED: Ondansetron ODT 4 MG TAB PO PRN (09:31)
[2018-02-08] MEDS ORDERED: HYDROcodone/Acetaminophen 5/325 mg Tablet PO PRN (09:31)
--- NOTE | 2018-02-08 09:52 | PDOC.GSPN ---
Surgery Progress Note: Subj - Subjective Narrative: Patient denies any current pain but did receive morphine not too long ago. Dr. Kim came by and saw the patient. He has a patent left lower extremity bypass with one-vessel runoff Dr. Kim does not feel that the perfusion of the leg can be improved any further. In his estimation the wound does not have adequate blood supply to heal. The wound is stable since debridement. He still has mild erythema to the lower calf area and bone palpable within the wound. Assessment/plan: Wet gangrene of the left lower extremity with poor perfusion despite previous revascularization. Since his vascular disease appears to be primarily mid and small vessel, Dr. Kim does not feel that he can improve the blood flow any further. We are both of the opinion that this wound is very unlikely to heal and I'm concerned about the possibility of extension of the infectious process. I have recommended ankle guillotine to control the infection followed by formal BKA next week. The patient needs to process this and states that he will let us know of his decision. I tentatively placed him on the OR schedule for later today. Dr. Renae will likely perform the ankle guillotine amputation if the patient decides to proceed with surgery. If he refuses surgery I would recommend a wound care and hyperbaric consult. Surgery Progress Note: Obj - Vital signs Vital signs: Vital Signs - Most Recent Temp Pulse Resp BP Pulse Ox 98.3 F 89 20 115/65 99 02/08/18 08:00 02/08/18 08:00 02/08/18 08:00 02/08/18 08:00 02/08/18 08:00 Surgery Progress Note: Results - Labs Result Diagrams: 02/13/18 09:00 02/13/18 09:00 Lab results: Laboratory Results - last 24 hr 02/08/18 02/08/18 00:20 04:42 POC Glucose 200 H Lactic Acid 1.3
--- NOTE | 2018-02-08 10:28 | HP ---
PRIMARY CARE PHYSICIAN: Dr. Gregg Robbins. CHIEF COMPLAINT: Swelling and drainage from the left foot. HISTORY OF PRESENT ILLNESS: Mr. Jerez is a pleasant 63-year-old gentleman that has a history of h ypertension and diabetes mellitus. He was actually recently in our hospital for hyperkalemia and he was treated and released approximately a month ago. He says that he was so excited that he just got the prosthesis for his right leg as he has had a right kppel-ptq-cdkh amputation. He says that he st arted walking with his new prosthesis with physical therapy and was walking apparently a lot at home when he started having swelling in the left foot. He says he started noticing a small sore. It was not much to look at initially, but then it started to get larger forming an ulcer and he says that [facility] wound care nurse came and looked at it approximately a week ago and says it did not look very good and set him up to have an appointment with the physician. Apparently, when the following week came, he states that they could not work him in and apparently told him to go to the emergency room for kwaku luation. During this time, he noticed that he started having some fever as well as some nausea and s ays that the area was basically draining and soaked. When he came to the ER, he was found to have a fairly large ulcer there and an elevated white blood cell count of 25,000 and he is being admitted fo r further evaluation. REVIEW OF SYSTEMS: Constitutional: He has had subjective fever as well as chills, no night sweats, no weight loss. HEENT: No headaches, no dizziness, no visual changes, no sore throat, rhinorrhea, n rico pain, no adenopathy. Pulmonary: No hemoptysis, no cough, no wheezing. Cardiovascular: He denies any chest pain, no shortness of breath, no PND, no orthopnea. Gastrointestinal: He has had some nausea, but no vomiting, no change in bowels. Genitourinary: No urinary frequency, hematuria, no hesitancy. Neurologic: No focal weakness, numbness, no seizures. Musculoskeletal: He has had the changes in his foot as previously mentioned as well as some sharp pa ins in that area. Neurological: No focal weakness, numbness, no seizures. Psychiatric: No symptom s of anxiety or depression. PAST MEDICAL HISTORY: Significant for hypertension, diabetes mellitus, hyperlipidemia, end-stage michael al disease on hemodialysis, anemia of renal disease, anxiety and depression, secondary hyperparathyro idism, peripheral vascular disease, and history of Saulo's gangrene, right IJ tunneled catheter. PAST SURGICAL HISTORY: He has had a dialysis catheter, right laohm-hen-uzzt amputation, left transme tatarsal amputation and colostomy. ALLERGIES: No known drug allergies. SOCIAL HISTORY: He is single. He has no children. He is a nonsmoker, nondrinker. His surrogate me dical decision maker is monique Jerez, his sister, but he says any of his sisters and brothers can be notified. FAMILY HISTORY: Significant for diabetes mellitus. CURRENT MEDICATIONS: Include Florinef, he says that is the only medicine he takes now. PHYSICAL EXAMINATION: GENERAL: He is alert and oriented. He appears to be in no acute distress. VITAL SIGNS: Blood pressure was 126/71, heart rate 88, respiratory rate of 18, temperature is 98.1. HEENT: His pupils are equal, round, and reactive. Extraocular muscles are intact. Sclerae are anic teric. Throat no erythema, no exudates. NECK: No adenopathy, no bruits. LUNGS: Clear. No wheezing, no rales. CARDIOVASCULAR: He has a normal S1, S2. I do not appreciate an S3 or S4. No murmurs, clicks or rub s. ABDOMEN: Obese, it is soft, nontender, nondistended. Positive for bowel sounds. No rebound, no gua rding. EXTREMITIES: He has got a right kgcen-ncr-zusu amputation. The stump site is good. He does have wh at appears to be an excoriation with a dressing over it and on the left lower extremity, he has got e rythema and discoloration of the skin from about the ankle downward and a little bit above the ankle, a little bit proximal to the ankle. He has got a very large 4-5 cm ulcer with irregular borders and some purulent drainage in areas of eschar there, unable to assess a pulse. LABORATORY RESULTS: White blood cell count is 25.3, hemoglobin 12.2, hematocrit is 39.3, platelet co unt is 623. Sodium 131, potassium 4.7, chloride is 89, CO2 is 24, BUN of 35, creatinine 7.05, glucos e is 231. Lactic acid was 3.4, repeat was 1.3. ASSESSMENT AND PLAN: This is a pleasant 63-year-old gentleman who presents with worsening diabetic f oot ulcer. He also has a history of severe peripheral vascular disease secondary to diabetes mellitu s. I have spoken with both Dr. Ruiz and Dr. Kim. He will be admitted to the medical floor. We will start him on broad spectrum IV antibiotics. General Surgery as well as CV Surgery has been con sulted for debridement of the wound and after discussion with both Dr. Ruiz and Dr. Kim, he will likely need a left yduio-hhb-lzwv amputation. This is what is recommended versus continued wound ca re and antibiotics, which is not recommended. 1. For diabetes mellitus, we will place him on a sliding scale insulin as he is currently diet contr olled with regards to this. 2. We will need to consult Nephrology with regards to his maintenance dialysis.
--- NOTE | 2018-02-08 10:42 | CON ---
DATE OF CONSULTAITON: 02/08/2018 HISTORY OF PRESENT ILLNESS: This is a 63-year-old gentleman with end-stage kidney disease, on Sunday , Sunday, Sunday dialysis. Last summer, the patient was evaluated by Dr. Howell, ultimately being treated for peripheral vascular disease with angiography, subsequent right lower extremity amputation , left transmetatarsal amputation following a left femoral to posterior tibial bypass. The patient w as seen in followup with his wound healing nicely and a palpable pulse in his graft with a good Doppl er signal in his posterior tibial artery. Sometime over the last few weeks while the patient was pily rning to walk with his prosthesis, he was noted to have some drainage from his left foot transmetatar david site. He was seen by the physical therapist and wound care staff at rehabilitation periodically with progression of his wound such that he was admitted to the hospital at this time. He has other a dditional risk factors of diabetes mellitus, dyslipidemia and hypertension. He has also had a histor y of Saulo's gangrene treated by Dr. Aaron as well as related colostomy with this. He has had the right BKA, left transmetatarsal and an AV fistula. MEDICATIONS: Include glipizide, atorvastatin, p.r.n. aspirin. PHYSICAL EXAMINATION: GENERAL: He is an alert, cooperative gentleman, some discomfort periodically being in pain. LUNGS: Clear to auscultation. CARDIAC: Mild resting tachycardia. No murmurs. ABDOMEN: Soft, nontender. Colostomy site present. EXTREMITIES: He has palpable femoral pulses bilaterally. He has a pulse in his left femoral-tibial graft with a good Doppler signal. He has a good Doppler signal in his left posterior tibial artery w ith no significant signal in his dorsalis pedis. He has a dressing on his left foot. His left leg i s warm, although there is no erythema noted. PLAN: At this time, he appears to have a fully functioning left lower extremity bypass graft and royal ears to primarily have a small vessel disease with an infected wet gangrene of his transmetatarsal ul timately probably needing a below knee amputation.
[2018-02-08] MEDS ORDERED: Piperacillin/Tazobactam 2.25 GM in Sodium Chloride 0.9% 100 ML IVPB SCH (11:00)
[2018-02-08 11:12] LABS: Anion Gap 18 mmol/L (10-20); BUN (Urea Nitrogen) 42 mg/dL (8.4-25.7); Calc. Creatinine Clearance 11 mL/min (70-130); Calcium 8.7 mg/dL (7.8-10.44); Carbon Dioxide 24 mmol/L (23-31); Chloride 95 mmol/L (98-107); Estimated GFR-MDRD 7; Glucose 164 mg/dL (80-115); Potassium 4.5 mmol/L (3.5-5.1); Sodium 132 mmol/L (136-145)
[2018-02-08 11:17] LABS: Vancomycin, Random 17.1 ug/mL (See Comment)
--- NOTE | 2018-02-08 12:05 | CON ---
DATE OF CONSULTATION: 02/08/2018 REASON FOR CONSULTATION: End-stage chronic kidney disease, on maintenance hemodialysis. HISTORY OF PRESENT ILLNESS: This is a 63-year-old gentleman with severe hyperkalemia and history of colon cancer who presented to the hospital for a gangrenous foot. He dialyzes Sunday, , and Sunday. His potassium is under good control. PAST MEDICAL HISTORY: Hypertension, anemia, stage 6 chronic kidney disease, anemia, cellulitis, deb pheral vascular disease, history of colon cancer, history of gangrene, history of tunneled catheter, history of AV fistula, history of diabetes mellitus and history of colostomy. ALLERGIES: Reviewed. HOME MEDICATIONS: List reviewed. FAMILY HISTORY: Negative for ESRD. REVIEW OF SYSTEMS: A 12 point review of systems was performed and was negative except for positives noted above. GENERAL: Weakness- HEAD: Headache- NECK: No swelling or lumps. NOSE: No epistaxis or discharge. EYES: No diplopia or pain. 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 NEUROPSYCHIATIC SYSTEMS: No suicidal ideation. No ideation. SKIN: Denies any rash or ulcer. CONSTITUTIONAL: No fever or chills. PHYSICAL EXAMINATION: GENERAL: Patient is awake, alert. VITAL SIGNS: Afebrile, pulse 81, breathing 16, blood pressure 126/70. OBJECTIVE: See above. Awake, alert, in no acute distress. GENERAL APPEARANCE AND MENTAL STATUS: Fair. HEAD/NECK: Normocephalic. Atraumatic. EYES: EOMI. No deformity. EARS: Clear. No ulcers. NOSE: Intact. No lesions. MOUTH: Clear. No discharge. THROAT: Clear. No exudate. LUNGS: Clear. No crackles. CARDIAC: S1, S2. No rub. ABDOMEN: Benign. BS+. GENITALIA/RECTUM: Luz absent. BACK/EXTREMITIES: Edema 0+ Ulcer- NEUROLOGICAL: Alert and motor intact. SKIN: Gangrenous changes noted. LYMPHATICS: Edema- Ulcer- LABORATORY: Potassium 4.5. ASSESSMENT AND RECOMMENDATIONS: 1. Stage 6 chronic kidney disease, plan dialysis tomorrow. 2. Hypertension, stable. 3. Anemia, stable. 4. Medication based on glomerular filtration rate are appropriate.
[2018-02-08] MEDS ORDERED: Vancomycin HCl 500 MG in Sodium Chloride 0.9% 100 ML IVPB SCH ×2 (13:00→22:00)
[2018-02-08] MEDS ORDERED: Vancomycin HCl 1 GM in Premix Bag 1 BAG IVPB SCH ×2 (13:00→21:00)
[2018-02-08] MEDS ORDERED: HOLD VANCOMYCIN FOR LEVEL >20 FS SCH (13:00)
[2018-02-08] MEDS ORDERED: Vancomycin HCl 1.25 GM in Sodium Chloride 0.9% 250 ML 250 ML IVPB SCH (13:00)
[2018-02-08] MEDS ORDERED: Vancomycin HCl 750 MG in Sodium Chloride 0.9% 250 ML 250 ML IVPB SCH (13:00)
[2018-02-08] MEDS ORDERED: Ondansetron HCl/PF 4 MG/2 ML Vial ONE (14:56)
[2018-02-08] MEDS ORDERED: PROPOFOL 200 MG/20 ML VIAL ONE (14:56)
[2018-02-08] MEDS ORDERED: PHENYLEPHRINE-NS 100 MCG/ML 10 ML SYRINGE ONE (14:56)
[2018-02-08] MEDS ORDERED: Lidocaine 1% PF 5 ML VIAL ONE (14:56)
[2018-02-08] MEDS ORDERED: Morphine 4 MG/ML VIAL ONE (15:22)
[2018-02-08] MEDS ORDERED: Fentanyl 100 MCG/2 ML VIAL ONE (15:25)
[2018-02-08] MEDS ORDERED: HYDROmorphone 0.5 MG/0.5 ML SYRINGE ONE (15:26)
[2018-02-08] MEDS ORDERED: Promethazine HCl 25 MG/ML VIAL IM PRN (16:12)
[2018-02-08] MEDS ORDERED: HYDROmorphone 2 MG/ML VIAL SLOW IVP PRN (16:12)
[2018-02-08] MEDS ORDERED: Promethazine HCl 25 MG/ML VIAL SLOW IVP PRN (16:12)
[2018-02-08] MEDS ORDERED: Calcium Chloride 1 GM/10 ML Abboject SYRINGE ONE (16:51)
--- NOTE | 2018-02-08 16:57 | OP ---
DATE OF PROCEDURE: 02/08/2018 PREOPERATIVE DIAGNOSIS: Wet gangrene to left foot in area of previous transmetatarsal amputation sit e. POSTOPERATIVE DIAGNOSIS: Wet gangrene to left foot in area of previous transmetatarsal amputation si te. PROCEDURE: Left ankle guillotine amputation just above the ankle. SURGEON: Dr. Renae. ANESTHESIA: General. ESTIMATED BLOOD LOSS: 20 mL. COMPLICATIONS: None. TECHNIQUE: The left lower extremity is prepped and draped in a sterile fashion to the knee. Incisio n is made sharply around the left lower extremity just above the ankle. The Drive Power[employer] saw was used to pe rform the guillotine amputation just above the ankle. There were a few arterial small bleeds that we re oversewn using silk suture. Cautery used to control bleeding at the skin and subcu. The wound is irrigated and a wound VAC is placed. The patient is en route to recovery in stable condition. All instrument counts, needle counts, lap counts are correct.
[2018-02-08] MEDS: Morphine 5 MG/ML SYRINGE IVP PRN (19:44)
[2018-02-08] MEDS: Heparin 5,000 UNITS/ML VIAL SC SCH (21:28)
[2018-02-08] MEDS: Docusate 100 MG CAP PO SCH (21:38)
[2018-02-08] MEDS: Piperacillin/Tazobactam 2.25 GM in Sodium Chloride 0.9% 100 ML IVPB SCH (21:39)
[2018-02-09] MEDS: Morphine 5 MG/ML SYRINGE IVP PRN ×3 (00:05→10:09)
[2018-02-09 04:56] LABS: #Eosinphils 0.3 thou/uL (0.0-0.7); #Lymphocytes 1.1 thou/uL (1.20-3.40); #Monocytes 0.6 thou/uL (0.11-0.59); #Neutrophils 7.5 thou/uL (1.40-6.50); %Basophils 0.1 % (0.0-1.0); %Eosinophils 2.8 % (0.0-10.0); %Lymphocytes 11.9 % (21.0-51.0); %Monocytes 6.4 % (0.0-10.0); %Neutrophils 78.8 % (42.0-75.0); Hemoglobin 10.9 g/dL (14.0-18.0); Mean Corpuscular HGB CONC 31.4 g/dL (32.0-36.0); Mean Corpuscular Hemoglobin 27.8 pg (27.0-31.0); Mean Corpuscular Volume 88.5 fl (80.0-94.0); Mean Platelet Volume 7.4 fL (7.4-10.4); Platelet Count 454 thou/uL (130-400); RBC Distribution Width 14.7 % (11.5-14.5); Red Blood Cell (RBC) Count 3.94 mill/uL (4.70-6.10); White Blood Cell (WBC) Count 9.5 thou/uL (4.8-10.8)
[2018-02-09 05:11] LABS: Anion Gap 15 mmol/L (10-20); BUN (Urea Nitrogen) 51 mg/dL (8.4-25.7); Calc. Creatinine Clearance 9 mL/min (70-130); Calcium 8.8 mg/dL (7.8-10.44); Carbon Dioxide 26 mmol/L (23-31); Chloride 96 mmol/L (98-107); Estimated GFR-MDRD 6; Glucose 152 mg/dL (80-115); Potassium 4.8 mmol/L (3.5-5.1); Sodium 132 mmol/L (136-145)
[2018-02-09] MEDS: Piperacillin/Tazobactam 2.25 GM in Sodium Chloride 0.9% 100 ML IVPB SCH ×3 (05:22→21:13)
[2018-02-09] MEDS: Docusate 100 MG CAP PO SCH ×2 (08:13→21:06)
[2018-02-09] MEDS: Heparin 5,000 UNITS/ML VIAL SC SCH ×2 (08:13→21:06)
[2018-02-09 10:14] LABS: Vancomycin, Trough 19.2 ug/mL
[2018-02-09] MEDS ORDERED: Heparin 1,000 UNITS/ML VIAL ONE (11:11)
--- NOTE | 2018-02-09 11:24 | PRG ---
DATE OF SERVICE: 02/09/2018 SUBJECTIVE: The patient is a 63-year-old gentleman being seen for end-stage renal disease. The concetta ent denies any nausea, vomiting, or chest pain. PHYSICAL EXAMINATION: GENERAL: Patient is awake, alert. VITAL SIGNS: Afebrile, pulse 75, breathing 16, blood pressure 135/74. HEAD/NECK: Normocephalic. Atraumatic. EYES: EOMI. No deformity. EARS: Clear. No ulcers. NOSE: Intact. No lesions. MOUTH: Clear. No discharge. THROAT: Clear. No exudate. LUNGS: Clear. No crackles. CARDIAC: S1, S2. No rub. ABDOMEN: Benign. BS+. GENITALIA/RECTUM: Luz absent. BACK/EXTREMITIES: Edema 0+ Ulcer- NEUROLOGICAL: Alert and motor intact. SKIN: Rash- Bruise- LYMPHATICS: Edema- Ulcer- LABORATORY DATA: Show hemoglobin 10.9. ASSESSMENT AND RECOMMENDATIONS: 1. Stage 6 chronic kidney disease, continue hemodialysis. 2. Hypertension, stable. 3. Anemia, stable. 4. Medications based on glomerular filtration rate are appropriate.
--- NOTE | 2018-02-09 12:04 | PDOC.PN ---
- Subjective Encounter Start Date: 02/09/18 Encounter Start Time: 12:03 Mr. Jerez was seen today in follow-up. He had surgery this morning, and is now in dialysis. He notes some pain in his left foot, otherwise ok. He has gotten some medication for pain. - Objective Resuscitation Status: Resuscitation Status FULL:Full Resuscitation MAR Reviewed: Yes Vital Signs & Weight: Vital Signs (12 hours) Temp Pulse Resp BP Pulse Ox 02/09/18 07:45 98.3 F 86 16 02/09/18 04:31 98.3 F 86 135/74 94 L 02/09/18 00:13 98.3 F 85 18 132/76 I&O: 02/08/18 02/09/18 02/10/18 06:59 06:59 06:59 Intake Total 0 0 Output Total 300 Balance -300 0 Result Diagrams: 02/09/18 04:34 02/09/18 04:34 Additional Labs: Accuchecks 02/09/18 02/08/18 02/08/18 04:27 19:53 17:26 POC Glucose 154 H 149 H 100 02/08/18 10:58 POC Glucose 154 H Phys Exam - Physical Examination HEENT: PERRLA Respiratory: no wheezing, no rales, no rhonchi, clear to auscultation bilateral Cardiovascular: RRR, no significant murmur Gastrointestinal: soft, non-tender, positive bowel sounds Musculoskeletal: no edema Dx/Plan (1) Diabetic foot ulcer Code(s): E11.621 - TYPE 2 DIABETES MELLITUS WITH FOOT ULCER; L97.509 - NON- PRESSURE CHRONIC ULCER OTH PRT UNSP FOOT W UNSP SEVERITY Status: Acute (2) Diabetes mellitus type 2 with complications Code(s): E11.8 - TYPE 2 DIABETES MELLITUS WITH UNSPECIFIED COMPLICATIONS Status: Acute (3) ESRD (end stage renal disease) on dialysis Code(s): N18.6 - END STAGE RENAL DISEASE; Z99.2 - DEPENDENCE ON RENAL DIALYSIS Status: Chronic (4) HTN (hypertension) Code(s): I10 - ESSENTIAL (PRIMARY) HYPERTENSION Status: Chronic Qualifiers: Hypertension type: essential hypertension Qualified Code(s): I10 - Essential (primary) hypertension - Plan * Diabetic foot ulcer - patient has severe vascular disease, and the area was not likely to heal. He has had ankle amputation . He may most likely will need Left BKA during this hospital stay * DM- blood glucose is stable * ESRD- continue dialysis * PVD- patient had a fem to posterior tibial bypass which is patent
[2018-02-09] MEDS: Acetaminophen 325 MG TAB PO PRN (21:04)
[2018-02-10] MEDS: Piperacillin/Tazobactam 2.25 GM in Sodium Chloride 0.9% 100 ML IVPB SCH ×3 (05:33→21:06)
[2018-02-10] MEDS: HumaLOG 300 UNITS/3 ML VIAL SC PRN ×2 (05:35→17:37)
[2018-02-10] MEDS: Acetaminophen 325 MG TAB PO PRN (05:54)
--- NOTE | 2018-02-10 08:17 | PDOC.GSPN ---
Surgery Progress Note: Subj - Subjective Patient reports: no new complaints Surgery Progress Note: Obj - Vital signs Vital signs: Vital Signs - Most Recent Temp Pulse Resp BP Pulse Ox 98.1 F 81 16 88/52 L 94 L 02/10/18 08:00 02/10/18 08:00 02/10/18 08:00 02/10/18 08:00 02/10/18 08:00 - Physical Exam General: no distress Cardiovascular: regular rate and rhythm Respiratory: clear to auscultation Wound: wound vac Surgery Progress Note: Results - Labs Result Diagrams: 02/09/18 04:34 02/09/18 04:34 Lab results: Laboratory Results - last 24 hr 02/09/18 02/10/18 20:52 04:39 POC Glucose 143 H 248 H Surgery Progress Note: A/P - Problem (1) Gangrene Current Visit: Yes Status: Acute - Plan Plan: Completion BKA tomorrow
[2018-02-10] MEDS: Docusate 100 MG CAP PO SCH ×2 (09:04→20:02)
[2018-02-10] MEDS: Heparin 5,000 UNITS/ML VIAL SC SCH ×2 (09:05→20:03)
--- NOTE | 2018-02-10 09:19 | PRG ---
DATE OF SERVICE: 02/10/2018 SUBJECTIVE: Mr. Jerez's pain is better controlled this morning. His wound is with wound VAC. PHYSICAL EXAMINATION: He is afebrile. His vital signs are stable. ASSESSMENT: Wet gangrene lower extremity status post guillotine amputation. PLAN: Dr. Ruiz to perform completion below knee amputation tomorrow.
--- NOTE | 2018-02-10 11:04 | PRG ---
DATE OF SERVICE: 02/10/2018 SUBJECTIVE: A 63-year-old male being seen for end-stage renal disease. The patient denies any nause a, vomiting, or chest pain. PHYSICAL EXAMINATION: GENERAL: Patient is awake, alert. VITAL SIGNS: Afebrile, pulse 79, breathing 16, blood pressure 150/72. HEAD/NECK: Normocephalic. Atraumatic. EYES: EOMI. No deformity. EARS: Clear. No ulcers. NOSE: Intact. No lesions. MOUTH: Clear. No discharge. THROAT: Clear. No exudate. LUNGS: Clear. No crackles. CARDIAC: S1, S2. No rub. ABDOMEN: Benign. BS+. GENITALIA/RECTUM: Luz absent. BACK/EXTREMITIES: Edema 0+ Ulcer- NEUROLOGICAL: Alert and motor intact. SKIN: Rash- Bruise- LYMPHATICS: Edema- Ulcer- LABORATORY DATA: Show potassium 4.8. ASSESSMENT AND PLAN: 1. Stage 6 chronic kidney disease. Continue hemodialysis Sunday, Sunday, and Sunday. 2. Hypertension, stable. 3. Anemia, stable. 4. Medications based on glomerular filtration rate are appropriate.
[2018-02-10 11:41] LABS: Anion Gap 14 mmol/L (10-20); BUN (Urea Nitrogen) 35 mg/dL (8.4-25.7); Calc. Creatinine Clearance 12 mL/min (70-130); Calcium 8.1 mg/dL (7.8-10.44); Carbon Dioxide 28 mmol/L (23-31); Chloride 97 mmol/L (98-107); Estimated GFR-MDRD 8; Glucose 159 mg/dL (80-115); Potassium 4.2 mmol/L (3.5-5.1); Sodium 135 mmol/L (136-145)
--- NOTE | 2018-02-10 13:23 | PDOC.PN ---
- Subjective Encounter Start Date: 02/10/18 Encounter Start Time: 08:00 Subjective: no sob. Has pain in left surgical amp site - Objective Resuscitation Status: Resuscitation Status FULL:Full Resuscitation MAR Reviewed: Yes Vital Signs & Weight: Vital Signs (12 hours) Temp Pulse Resp BP Pulse Ox 02/10/18 11:00 98.4 F 71 16 127/69 95 02/10/18 08:00 98.1 F 81 16 88/52 L 94 L 02/10/18 04:00 98.4 F 79 16 152/72 H 92 L Weight Admit Weight 174 lb Weight 174 lb I&O: 02/09/18 02/10/18 02/11/18 06:59 06:59 06:59 Intake Total 0 1190 480 Output Total 1950 Balance 0 -760 480 Result Diagrams: 02/09/18 04:34 02/10/18 11:08 Additional Labs: Accuchecks 02/10/18 02/10/18 02/09/18 11:24 04:39 20:52 POC Glucose 151 H 248 H 143 H 02/09/18 02/09/18 16:10 14:00 POC Glucose 136 H 90 Phys Exam - Physical Examination HEENT: PERRLA, moist MMs Neck: no JVD, supple Respiratory: no wheezing, no rales Cardiovascular: RRR, no significant murmur Gastrointestinal: soft, non-tender, positive bowel sounds Musculoskeletal: no edema, pulses present Neurological: non-focal, moves all 4 limbs Psychiatric: normal affect, A&O x 3 Dx/Plan (1) MSSA bacteremia Code(s): R78.81 - BACTEREMIA Status: Acute (2) Diabetic foot ulcer Code(s): E11.621 - TYPE 2 DIABETES MELLITUS WITH FOOT ULCER; L97.509 - NON- PRESSURE CHRONIC ULCER OTH PRT UNSP FOOT W UNSP SEVERITY Status: Acute Qualifiers: Diabetic foot ulcer location: unspecified part of foot Diabetes mellitus type: type 2 Laterality: left Comment: s/p gullitone ankle amp (3) Diabetes mellitus type 2 in nonobese Code(s): E11.9 - TYPE 2 DIABETES MELLITUS WITHOUT COMPLICATIONS Status: Chronic (4) ESRD (end stage renal disease) on dialysis Code(s): N18.6 - END STAGE RENAL DISEASE; Z99.2 - DEPENDENCE ON RENAL DIALYSIS Status: Chronic Comment: M/W/D (5) HTN (hypertension) Code(s): I10 - ESSENTIAL (PRIMARY) HYPERTENSION Status: Chronic Qualifiers: Hypertension type: essential hypertension Qualified Code(s): I10 - Essential (primary) hypertension (6) Normocytic anemia Code(s): D64.9 - ANEMIA, UNSPECIFIED Status: Chronic (7) Peripheral vascular disease Code(s): I73.9 - PERIPHERAL VASCULAR DISEASE, UNSPECIFIED Status: Chronic (8) h/o right bka Status: Chronic - Plan for likely left bka in am -: on vanc and zosyn -: morphine prn for pain -: will need rehab for dc plan * . Review of Systems - Medications/Allergies Allergies/Adverse Reactions: Allergies Allergy/AdvReac Type Severity Reaction Status Date / Time No Known Allergies Allergy Verified 01/21/18 08:33 Medications: Current Medications Acetaminophen (Tylenol) 650 mg PO Q4H PRN PRN Reason: Headache/Fever or Pain Last Admin: 02/10/18 05:54 Dose: 650 mg Hydrocodone Bitart/Acetaminophen ([place] 10/325) 1 tab PO Q4H PRN PRN Reason: Pain 1ST LINE Hydrocodone Bitart/Acetaminophen ([place] 10/325) 2 tab PO Q4H PRN PRN Reason: Pain 2ND LINE Calcium Carbonate (Tums) 1,000 mg PO Q4H PRN PRN Reason: Heartburn or Indigestion Dextrose/Water (Dextrose 50%) 25 gm SLOW IVP PRN PRN PRN Reason: Hypoglycemia Docusate Sodium (Colace) 100 mg PO BID [facility] Last Admin: 02/10/18 09:04 Dose: Not Given Glucagon (Glucagon) 1 mg IM PRN PRN PRN Reason: Hypoglycemia Heparin Sodium (Porcine) (Heparin) 5,000 units SC BID [facility] Last Admin: 02/10/18 09:05 Dose: Not Given Dextrose/Water (D5w) 1,000 mls @ 0 mls/hr IV .Q0M PRN; As Directed PRN Reason: Hypoglycemia Piperacillin Sod/Tazobactam (Sod 2.25 gm/ Sodium Chloride) 100 mls @ 200 mls/ hr IVPB Q8HR [facility] Last Admin: 02/10/18 05:33 Dose: 100 mls Vancomycin HCl 1.25 gm/ Sodium (Chloride) 250 mls @ 166.667 mls/hr IVPB [facility]CALL [facility] Vancomycin HCl 1 gm/ Device 200 mls @ 200 mls/hr IVPB [facility]CALL [facility]O Vancomycin HCl 750 mg/ Sodium (Chloride) 250 mls @ 250 mls/hr IVPB [facility]CALL [facility] Vancomycin HCl 500 mg/ Sodium (Chloride) 100 mls @ 100 mls/hr IVPB [facility] Last Admin: 02/09/18 12:06 Dose: 100 mls Insulin Human Lispro (Humalog) 0 units SC .MILD SLIDING SCALE PRN PRN Reason: Mild Correctional Scale Last Admin: 02/10/18 05:35 Dose: 3 unit Lactulose (Lactulose) 20 gm PO DAILYPRN PRN PRN Reason: Constipation Miscellaneous Medication (Pharmacy To Dose) 0 each IVPB ASDIR PRN PRN Reason: Pharmacy to Dose VANCOMYCIN Morphine Sulfate (Morphine) 2 mg SLOW IVP Q2H PRN PRN Reason: Mild-Moderate Pain (1-5) Morphine Sulfate (Morphine) 4 mg IVP Q2H PRN PRN Reason: Moderate to Severe Pain (6-10) Last Admin: 02/09/18 10:09 Dose: 4 mg Hold Vancomycin For (Level >20) 0 each FS .AT DIALYSIS [facility] Ondansetron HCl (Zofran Odt) 4 mg PO Q6H PRN PRN Reason: Nausea/Vomiting Ondansetron HCl (Zofran) 4 mg IVP Q6H PRN PRN Reason: Nausea/Vomiting Temazepam (Restoril) 15 mg PO HSPRN PRN PRN Reason: Insomnia
[2018-02-10] MEDS: Morphine 5 MG/ML SYRINGE IVP PRN ×2 (13:42→19:55)
[2018-02-11] MEDS: Piperacillin/Tazobactam 2.25 GM in Sodium Chloride 0.9% 100 ML IVPB SCH ×3 (05:07→21:26)
[2018-02-11] MEDS: Heparin 5,000 UNITS/ML VIAL SC SCH ×2 (08:04→21:26)
[2018-02-11] MEDS: Docusate 100 MG CAP PO SCH ×2 (08:04→21:26)
[2018-02-11] MEDS ORDERED: Morphine 4 MG/ML VIAL ONE (09:58)
[2018-02-11] MEDS ORDERED: Fentanyl 250 MCG/5 ML VIAL ONE (10:13)
[2018-02-11] MEDS ORDERED: Midazolam HCl 2 mg/2 ml Vial ONE (10:13)
[2018-02-11] MEDS ORDERED: Bacitracin Zinc Ointment 30 gm TUBE ONE (10:16)
[2018-02-11] MEDS ORDERED: Heparin 10,000 UNITS/1 ML VIAL ONE (10:24)
[2018-02-11] MEDS ORDERED: Ondansetron HCl/PF 4 MG/2 ML Vial ONE (10:57)
[2018-02-11] MEDS ORDERED: PHENYLEPHRINE-NS 100 MCG/ML 10 ML SYRINGE ONE (10:57)
[2018-02-11] MEDS ORDERED: Lidocaine 1% PF 5 ML VIAL ONE (10:57)
[2018-02-11] MEDS ORDERED: Glycopyrrolate 0.2 MG/ML 5 ML SYRINGE ONE (10:57)
[2018-02-11] MEDS ORDERED: ePHEDrine/0.9% NaCl/PF SYRINGE 50 mg/10 ml ONE (10:57)
[2018-02-11] MEDS ORDERED: PROPOFOL 200 MG/20 ML VIAL ONE (10:57)
[2018-02-11] MEDS ORDERED: Dexamethasone 20 MG/5 ML VIAL ONE (10:57)
--- NOTE | 2018-02-11 12:11 | PQF ---
CLINICAL DOCUMENTATION IMPROVEMENT CLARIFICATION FORM: ICD-10 Updated PLEASE DO AN ADDENDUM TO THE PROGRESS NOTE WITH ANY DOCUMENTATION UPDATES OR ADDITIONS AND CARRY THROUGH TO DC SUMMARY. THANK YOU. DATE: 02/11/18 ATTN: Dr. Salinas Please exercise your independent, professional judgment in responding to the clarification form. Clinical indicators are provided on the bottom of this form for your review Please check appropriate box(es): [ x ] Sepsis due to: __mssa bacteremia [ ] Severe sepsis with acute organ dysfunction of: (Examples: respiratory failure, encephalopathy, acute kidney failure, other) [ ] Localized infection without sepsis [ ] Other diagnosis [ ] Unable to determine In addition, please specify: Present on Admission (POA): [ x] Yes [ ] No [ ] Unable to determine For continuity of documentation, please document condition throughout progress notes and discharge summary. Thank You. CLINICAL INDICATORS - SIGNS / SYMPTOMS / LABS ER RECORD: BP 113/51, PULSE 120, RESP. 18., TEMP. 102.1 SEPSIS DIABETIC FOOT WOUND/ CELLULITIS H&P: WHITE BLOOD CELL COUNT IS 25.3 LACTIC ACID 3.4 REPEAT WAS 1.3 PRESENTS W/ WORSENING DIABETIC FOOT ULCER PN 4: MSSA BACTEREMIA. RISKS: H&P: HX SIGNIFICANT FOR HTN. ESRD ON HEMODIALYSIS. HX OF SEVERE PVD SECONDARY TO DM. TREATMENT: GENERAL SURGERY & CV SURGERY CONSULTED FOR DEBRIDEMENT OF THE WOUND. ORDER 02/08: ZOSYN 2.25 GM IV Q 8 HR ORDER 02/08: IV VANCOMYCIN AT DIALYSIS IF VANC LEVEL >10 & <=15 Thank you, Lesley (This form is maintained as a part of the permanent medical record) 2015 [employer]. All Rights Reserved Lesley Norman RN, BSN [email or web address] Office: [phone] [facility]ITAL[facility]
--- NOTE | 2018-02-11 13:02 | PDOC.PN ---
- Subjective Encounter Start Date: 02/11/18 Encounter Start Time: 07:00 Subjective: no c/o sob or chest pain -: is npo for surgery today - Objective Resuscitation Status: Resuscitation Status FULL:Full Resuscitation MAR Reviewed: Yes Vital Signs & Weight: Vital Signs (12 hours) Temp Pulse Resp BP Pulse Ox 02/11/18 08:00 98.2 F 85 16 155/78 H 97 02/11/18 05:00 98.5 F 84 17 135/71 95 Weight Admit Weight 174 lb Weight 174 lb I&O: 02/10/18 02/11/18 02/12/18 06:59 06:59 06:59 Intake Total 1190 2140 Output Total 1950 400 Balance -760 1740 Result Diagrams: 02/09/18 04:34 02/10/18 11:08 Additional Labs: Accuchecks 02/11/18 02/10/18 02/10/18 05:07 19:56 16:24 POC Glucose 165 H 141 H 221 H Phys Exam - Physical Examination HEENT: PERRLA, moist MMs Neck: no JVD, supple Respiratory: no wheezing, no rales Cardiovascular: RRR, no significant murmur Gastrointestinal: soft, non-tender, positive bowel sounds right bka, left ankle amp Neurological: non-focal, moves all 4 limbs Psychiatric: A&O x 3 Dx/Plan (1) MSSA bacteremia Code(s): R78.81 - BACTEREMIA Status: Acute (2) Diabetic foot ulcer Code(s): E11.621 - TYPE 2 DIABETES MELLITUS WITH FOOT ULCER; L97.509 - NON- PRESSURE CHRONIC ULCER OTH PRT UNSP FOOT W UNSP SEVERITY Status: Acute Qualifiers: Diabetic foot ulcer location: unspecified part of foot Diabetes mellitus type: type 2 Laterality: left Comment: s/p gullitone ankle amp (3) Diabetes mellitus type 2 in nonobese Code(s): E11.9 - TYPE 2 DIABETES MELLITUS WITHOUT COMPLICATIONS Status: Chronic (4) ESRD (end stage renal disease) on dialysis Code(s): N18.6 - END STAGE RENAL DISEASE; Z99.2 - DEPENDENCE ON RENAL DIALYSIS Status: Chronic Comment: M/W/D (5) HTN (hypertension) Code(s): I10 - ESSENTIAL (PRIMARY) HYPERTENSION Status: Chronic Qualifiers: Hypertension type: essential hypertension Qualified Code(s): I10 - Essential (primary) hypertension (6) Normocytic anemia Code(s): D64.9 - ANEMIA, UNSPECIFIED Status: Chronic (7) Peripheral vascular disease Code(s): I73.9 - PERIPHERAL VASCULAR DISEASE, UNSPECIFIED Status: Chronic (8) h/o right bka Status: Chronic (9) Sepsis Code(s): A41.9 - SEPSIS, UNSPECIFIED ORGANISM Status: Acute Qualifiers: Sepsis type: methicillin susceptible Staphylococcus aureus Qualified Code(s ): A41.01 - Sepsis due to Methicillin susceptible Staphylococcus aureus - Plan is on vanc and zosyn -: is going for left bka today -: duration of antibiotics ?, will consult -: HD on // -: will need rehab post bka * . Review of Systems - Medications/Allergies Allergies/Adverse Reactions: Allergies Allergy/AdvReac Type Severity Reaction Status Date / Time No Known Allergies Allergy Verified 01/21/18 08:33 Medications: Current Medications Acetaminophen (Tylenol) 650 mg PO Q4H PRN PRN Reason: Headache/Fever or Pain Last Admin: 02/10/18 05:54 Dose: 650 mg Hydrocodone Bitart/Acetaminophen ([place] 10/325) 1 tab PO Q4H PRN PRN Reason: Pain 1ST LINE Hydrocodone Bitart/Acetaminophen ([place] 10/325) 2 tab PO Q4H PRN PRN Reason: Pain 2ND LINE Calcium Carbonate (Tums) 1,000 mg PO Q4H PRN PRN Reason: Heartburn or Indigestion Dextrose/Water (Dextrose 50%) 25 gm SLOW IVP PRN PRN PRN Reason: Hypoglycemia Docusate Sodium (Colace) 100 mg PO BID [facility] Last Admin: 02/11/18 08:04 Dose: Not Given Glucagon (Glucagon) 1 mg IM PRN PRN PRN Reason: Hypoglycemia Heparin Sodium (Porcine) (Heparin) 5,000 units SC BID [facility] Last Admin: 02/11/18 08:04 Dose: Not Given Dextrose/Water (D5w) 1,000 mls @ 0 mls/hr IV .Q0M PRN; As Directed PRN Reason: Hypoglycemia Piperacillin Sod/Tazobactam (Sod 2.25 gm/ Sodium Chloride) 100 mls @ 200 mls/ hr IVPB Q8HR [facility] Last Admin: 02/11/18 05:07 Dose: 100 mls Vancomycin HCl 1.25 gm/ Sodium (Chloride) 250 mls @ 166.667 mls/hr IVPB [facility]CALL [facility]O Vancomycin HCl 1 gm/ Device 200 mls @ 200 mls/hr IVPB [facility] Vancomycin HCl 750 mg/ Sodium (Chloride) 250 mls @ 250 mls/hr IVPB [facility] Vancomycin HCl 500 mg/ Sodium (Chloride) 100 mls @ 100 mls/hr IVPB [facility] Last Admin: 02/09/18 12:06 Dose: 100 mls Insulin Human Lispro (Humalog) 0 units SC .MILD SLIDING SCALE PRN PRN Reason: Mild Correctional Scale Last Admin: 02/10/18 17:37 Dose: 3 unit Lactulose (Lactulose) 20 gm PO DAILYPRN PRN PRN Reason: Constipation Miscellaneous Medication (Pharmacy To Dose) 0 each IVPB ASDIR PRN PRN Reason: Pharmacy to Dose VANCOMYCIN Morphine Sulfate (Morphine) 2 mg SLOW IVP Q2H PRN PRN Reason: Mild-Moderate Pain (1-5) Morphine Sulfate (Morphine) 4 mg IVP Q2H PRN PRN Reason: Moderate to Severe Pain (6-10) Last Admin: 02/10/18 19:55 Dose: 4 mg Hold Vancomycin For (Level >20) 0 each FS .AT DIALYSIS [facility] Ondansetron HCl (Zofran Odt) 4 mg PO Q6H PRN PRN Reason: Nausea/Vomiting Ondansetron HCl (Zofran) 4 mg IVP Q6H PRN PRN Reason: Nausea/Vomiting Temazepam (Restoril) 15 mg PO HSPRN PRN PRN Reason: Insomnia
[2018-02-11] MEDS ORDERED: Promethazine HCl 25 MG/ML VIAL IM PRN (13:57)
[2018-02-11] MEDS ORDERED: Promethazine HCl 25 MG/ML VIAL SLOW IVP PRN (13:57)
[2018-02-11] MEDS ORDERED: Ondansetron HCl/PF 4 MG/2 ML Vial IVP PRN (13:57)
[2018-02-11] MEDS: Morphine 5 MG/ML SYRINGE IVP PRN (15:15)
[2018-02-11 16:22] LABS: Vancomycin, Trough 19.2 ug/mL
[2018-02-11] MEDS ORDERED: Morphine 2 MG/ML SYRINGE SLOW IVP SCH (16:45)
--- NOTE | 2018-02-11 20:23 | PRG ---
DATE OF SERVICE: 02/11/2018 SUBJECTIVE: Patient was seen and examined at bedside and overnight events noted. Patient denies any shortness of breath or chest pain or palpitation. No history of nausea or vomiting or diarrhea or f ever or chills or cramps. OBJECTIVE: GENERAL: This is a well-developed male, in no apparent distress VITAL SIGNS: Temperature 98.5, pulse 82, respirations 18, blood pressure 117/68. HEENT: Atraumatic, normocephalic, Oral mucosa is moist. NECK: Supple. CARDIOVASCULAR: S1, S2 heard, rate and rhythm regular. RESPIRATORY: Clear to auscultation. GASTROINTESTINAL: Abdomen is soft. MUSCULOSKELETAL: No tenderness, no edema. DERMATOLOGIC: No skin rash. NEUROLOGIC: Alert and awake and oriented x3. No focal neurologic deficits. Moving all the extremit ies. PSYCHIATRIC: Mood and affect normal. LABORATORY DATA: Not done today. ASSESSMENT AND PLAN: 1. End-stage renal disease. Continue on hemodialysis. The patient was seen during dialysis. 2. Hypertension. 3. Anemia. 4. Edema, controlled. The patient does have a lot of pain during dialysis. We will give one dose of morphine during dialys is with close monitoring of cardiac and respiratory status. We will continue on dialysis as tolerate d.
[2018-02-11] MEDS ORDERED: Heparin 10,000 UNITS/ 10 ML VIAL ONE (20:28)
[2018-02-11] MEDS: Morphine 2 MG/ML SYRINGE SLOW IVP PRN (22:01)
[2018-02-12] MEDS: Morphine 2 MG/ML SYRINGE SLOW IVP PRN (05:00)
[2018-02-12] MEDS: Piperacillin/Tazobactam 2.25 GM in Sodium Chloride 0.9% 100 ML IVPB SCH ×2 (05:00→13:38)
[2018-02-12] MEDS: HumaLOG 300 UNITS/3 ML VIAL SC PRN ×2 (05:01→11:29)
[2018-02-12] MEDS: Docusate 100 MG CAP PO SCH ×2 (07:24→19:32)
[2018-02-12] MEDS: Heparin 5,000 UNITS/ML VIAL SC SCH ×2 (07:24→19:33)
[2018-02-12] MEDS: Morphine 5 MG/ML SYRINGE IVP PRN ×3 (09:34→21:35)
--- NOTE | 2018-02-12 12:01 | PDOC.PN ---
- Subjective Encounter Start Date: 02/12/18 Encounter Start Time: 10:00 Subjective: feels better, no pain - Objective Resuscitation Status: Resuscitation Status FULL:Full Resuscitation MAR Reviewed: Yes Vital Signs & Weight: Vital Signs (12 hours) Temp Pulse Resp BP Pulse Ox 02/12/18 11:18 98.4 F 86 14 126/70 96 02/12/18 07:35 97.5 F L 82 16 136/76 97 02/12/18 04:00 98.4 F 79 18 122/71 95 02/12/18 00:00 98.8 F 87 16 107/67 96 Weight Admit Weight 174 lb Weight 174 lb I&O: 02/11/18 02/12/18 02/13/18 06:59 06:59 06:59 Intake Total 2140 680 Output Total 400 250 Balance 1740 430 Result Diagrams: 02/09/18 04:34 02/10/18 11:08 Additional Labs: Accuchecks 02/12/18 02/12/18 02/11/18 11:22 04:53 20:07 POC Glucose 243 H 332 H 128 H 02/11/18 14:37 POC Glucose 140 H Phys Exam - Physical Examination HEENT: PERRLA, moist MMs Neck: no JVD, supple Respiratory: no wheezing, no rales Cardiovascular: RRR, no significant murmur Gastrointestinal: soft, non-tender, positive bowel sounds Musculoskeletal: pulses present b/l bka Neurological: non-focal, moves all 4 limbs Psychiatric: A&O x 3 Dx/Plan (1) MSSA bacteremia Code(s): R78.81 - BACTEREMIA Status: Acute (2) Diabetic foot ulcer Code(s): E11.621 - TYPE 2 DIABETES MELLITUS WITH FOOT ULCER; L97.509 - NON- PRESSURE CHRONIC ULCER OTH PRT UNSP FOOT W UNSP SEVERITY Status: Acute Qualifiers: Diabetic foot ulcer location: unspecified part of foot Diabetes mellitus type: type 2 Laterality: left Comment: s/p left bka (3) Diabetes mellitus type 2 in nonobese Code(s): E11.9 - TYPE 2 DIABETES MELLITUS WITHOUT COMPLICATIONS Status: Chronic (4) ESRD (end stage renal disease) on dialysis Code(s): N18.6 - END STAGE RENAL DISEASE; Z99.2 - DEPENDENCE ON RENAL DIALYSIS Status: Chronic Comment: M/W/D (5) HTN (hypertension) Code(s): I10 - ESSENTIAL (PRIMARY) HYPERTENSION Status: Chronic Qualifiers: Hypertension type: essential hypertension Qualified Code(s): I10 - Essential (primary) hypertension (6) Normocytic anemia Code(s): D64.9 - ANEMIA, UNSPECIFIED Status: Chronic (7) Peripheral vascular disease Code(s): I73.9 - PERIPHERAL VASCULAR DISEASE, UNSPECIFIED Status: Chronic (8) h/o right bka Status: Chronic (9) Sepsis Code(s): A41.9 - SEPSIS, UNSPECIFIED ORGANISM Status: Acute Qualifiers: Sepsis type: methicillin susceptible Staphylococcus aureus Qualified Code(s ): A41.01 - Sepsis due to Methicillin susceptible Staphylococcus aureus - Plan hemostable -: PT to help pt learn transfers, will need rehab -: wound care -: is on vanc and zosyn -: duration of antibiotics per advice, s/p left bka * . Review of Systems - Medications/Allergies Allergies/Adverse Reactions: Allergies Allergy/AdvReac Type Severity Reaction Status Date / Time No Known Allergies Allergy Verified 01/21/18 08:33 Medications: Current Medications Acetaminophen (Tylenol) 650 mg PO Q4H PRN PRN Reason: Headache/Fever or Pain Last Admin: 02/10/18 05:54 Dose: 650 mg Hydrocodone Bitart/Acetaminophen ([place] 10/325) 1 tab PO Q4H PRN PRN Reason: Pain 1ST LINE Hydrocodone Bitart/Acetaminophen ([place] 10/325) 2 tab PO Q4H PRN PRN Reason: Pain 2ND LINE Calcium Carbonate (Tums) 1,000 mg PO Q4H PRN PRN Reason: Heartburn or Indigestion Dextrose/Water (Dextrose 50%) 25 gm SLOW IVP PRN PRN PRN Reason: Hypoglycemia Docusate Sodium (Colace) 100 mg PO BID [facility] Last Admin: 02/12/18 07:24 Dose: Not Given Glucagon (Glucagon) 1 mg IM PRN PRN PRN Reason: Hypoglycemia Heparin Sodium (Porcine) (Heparin) 5,000 units SC BID [facility] Last Admin: 02/12/18 07:24 Dose: Not Given Dextrose/Water (D5w) 1,000 mls @ 0 mls/hr IV .Q0M PRN; As Directed PRN Reason: Hypoglycemia Piperacillin Sod/Tazobactam (Sod 2.25 gm/ Sodium Chloride) 100 mls @ 200 mls/ hr IVPB Q8HR [facility] Last Admin: 02/12/18 05:00 Dose: 100 mls Vancomycin HCl 1.25 gm/ Sodium (Chloride) 250 mls @ 166.667 mls/hr IVPB WILLCALL NANDO Vancomycin HCl 1 gm/ Device 200 mls @ 200 mls/hr IVPB [facility]CALL N[facility]O Vancomycin HCl 750 mg/ Sodium (Chloride) 250 mls @ 250 mls/hr IVPB [facility]CALL NANDO Vancomycin HCl 500 mg/ Sodium (Chloride) 100 mls @ 100 mls/hr IVPB [facility] Last Admin: 02/09/18 12:06 Dose: 100 mls Insulin Human Lispro (Humalog) 0 units SC .MILD SLIDING SCALE PRN PRN Reason: Mild Correctional Scale Last Admin: 02/12/18 11:29 Dose: 3 unit Lactulose (Lactulose) 20 gm PO DAILYPRN PRN PRN Reason: Constipation Miscellaneous Medication (Pharmacy To Dose) 0 each IVPB ASDIR PRN PRN Reason: Pharmacy to Dose VANCOMYCIN Morphine Sulfate (Morphine) 2 mg SLOW IVP Q2H PRN PRN Reason: Mild-Moderate Pain (1-5) Last Admin: 02/12/18 05:00 Dose: 2 mg Morphine Sulfate (Morphine) 4 mg IVP Q2H PRN PRN Reason: Moderate to Severe Pain (6-10) Last Admin: 02/12/18 09:34 Dose: 4 mg Hold Vancomycin For (Level >20) 0 each FS .AT DIALYSIS [facility] Ondansetron HCl (Zofran Odt) 4 mg PO Q6H PRN PRN Reason: Nausea/Vomiting Ondansetron HCl (Zofran) 4 mg IVP Q6H PRN PRN Reason: Nausea/Vomiting Temazepam (Restoril) 15 mg PO HSPRN PRN PRN Reason: Insomnia
--- NOTE | 2018-02-12 18:34 | CON ---
DATE OF CONSULTATION: 02/12/2018 REASON FOR CONSULTATION: Bacteremia. HISTORY OF PRESENT ILLNESS: A 63-year-old patient who has a history of hypertension; type 2 diabetes; hyperlipidemia; end-stage renal disease, on hemodialysis with tunneled right IJ catheter; peripheral vascular disease with previous right BKA who presented with worsening inflammatory changes in left foot, which has been present for about 2 weeks now. He developed some fever a few days ago, nausea, and chills. He unfortunately had a necrotizing infection and required a guillotine amputation of the left foot. He is in the floor now. He is awake, oriented, pleasant. No headaches. No change in visual symptoms , sore throat, odynophagia, dysphagia. No dyspnea or chest pain. No abdominal pain. Does not make any urinary output. No diarrhea. He does not have much sensation in the lower extremities due to neuropathy. PAST MEDICAL HISTORY: Type 2 diabetes, hypertension, end-stage renal disease. The patient has had a fistula, which did not work and now he has a graft which is maturing in the left upper extremity, but still using a hemodialysis catheter tunneled into the right IJ location. Hyperparathyroidism, peripheral vascular disease, Saulo's gangrene. PAST SURGICAL HISTORY: As above. ALLERGIES: None. SOCIAL HISTORY: Single, never a smoker. FAMILY HISTORY: Type 2 diabetes. CURRENT MEDICATIONS: [place], Tums, dextrose IV, glucagon, heparin, insulin, lactulose, morphine, vancomycin sliding scale, Zosyn. PHYSICAL EXAMINATION: VITAL SIGNS: T-max 98.5, blood pressure 117/68, pulse 86. SKIN: With small areas of ulceration in the lower extremities, little bit area of erythema around the perineal region and the penile region. The tunneled catheter with no inflammatory changes noted, right subclavian exit site. Left arm AV graft with no inflammatory changes. HEENT: Ocular movements conjugate. Oral cavity unremarkable. NECK: Supple. LUNGS: Symmetric, clear breath sounds. HEART: S1, S2 regular rate without obvious murmurs. ABDOMEN: Soft, not distended. No ascites. No bladder distention. EXTREMITIES: The guillotine amputation site was covered with a splint and dressing. The left BKA site is intact. Cognitive function appears to be intact. LABORATORY DATA: White cell count down from 25 to 9.3, hemoglobin 10.9, platelets 454, 78% neutrophils. Creatinine 7.19, sodium 135. Liver profile is normal. Alkaline phosphatase 207, CRP 35. Two out of two sets of blood cultures had Staphylococcus aureus, which is methicillin susceptible. Repeat two sets of blood cultures thus far negative. Pathology surgical specimen pending. The operative note is reviewed and the extremity was prepped and the guillotine amputation was completed. ASSESSMENT: 1. Type 2 diabetes. 2. End-stage renal disease, on hemodialysis through a catheter. 3. Necrotizing infection of left foot, status post guillotine amputation. 4. Bacteremia with methicillin-susceptible Staphylococcus aureus. DISCUSSION: The differential diagnosis includes bacteremia associated with necrotizing infection plus or minus colonization of the hemodialysis catheter. No evidence of colonization of the left arm graft. At this point, we will continue conservative management and probably can transition him to cefazolin plus oral quinolone for discharge planning, or continue vancomycin sliding scale. Discontinue the remainder of antimicrobial at this point in time. Treat for at least 4 weeks. The patient is at risk for colonization of the hemodialysis catheter and we will need to repeat blood cultures if fevers recur in the future. If there is recurrence of bacteremia, then it is likely that the catheter will have to be removed, but hopefully that is not going to be necessary at least in the short term. No evidence of other sites of involvement at this point in time. [facility]
[2018-02-13] MEDS: Morphine 5 MG/ML SYRINGE IVP PRN ×2 (05:43→21:21)
[2018-02-13 07:34] LABS: Vancomycin, Trough 13.7 ug/mL
[2018-02-13] MEDS: Docusate 100 MG CAP PO SCH ×2 (08:37→20:24)
[2018-02-13] MEDS: Heparin 5,000 UNITS/ML VIAL SC SCH ×2 (08:37→20:24)
[2018-02-13] MEDS ORDERED: Heparin 10,000 UNITS/ 10 ML VIAL ONE (09:00)
[2018-02-13 09:10] LABS: #Eosinphils 0.1 thou/uL (0.0-0.7); #Lymphocytes 1.2 thou/uL (1.20-3.40); #Monocytes 0.9 thou/uL (0.11-0.59); #Neutrophils 7.6 thou/uL (1.40-6.50); %Basophils 0.2 % (0.0-1.0); %Eosinophils 1.1 % (0.0-10.0); %Lymphocytes 11.7 % (21.0-51.0); %Monocytes 9.2 % (0.0-10.0); %Neutrophils 77.8 % (42.0-75.0); Hemoglobin 8.4 g/dL (14.0-18.0); Mean Corpuscular HGB CONC 30.6 g/dL (32.0-36.0); Mean Corpuscular Hemoglobin 26.7 pg (27.0-31.0); Mean Corpuscular Volume 87.2 fl (80.0-94.0); Mean Platelet Volume 6.9 fL (7.4-10.4); Platelet Count 363 thou/uL (130-400); RBC Distribution Width 14.5 % (11.5-14.5); Red Blood Cell (RBC) Count 3.16 mill/uL (4.70-6.10); White Blood Cell (WBC) Count 9.8 thou/uL (4.8-10.8)
[2018-02-13 09:29] LABS: Anion Gap 11 mmol/L (10-20); BUN (Urea Nitrogen) 17 mg/dL (8.4-25.7); Calc. Creatinine Clearance 22 mL/min (70-130); Calcium 8.2 mg/dL (7.8-10.44); Carbon Dioxide 32 mmol/L (23-31); Chloride 98 mmol/L (98-107); Estimated GFR-MDRD 17; Glucose 112 mg/dL (80-115); Potassium 3.5 mmol/L (3.5-5.1); Sodium 137 mmol/L (136-145)
[2018-02-13 10:00] LABS: Hypochromia SLIGHT = 6-15 cells (100X) (0-5/hpf); MDiff Complete? YES; PLT Morphology Comment Appears Adequate; Polychromasia SLIGHT = 2-3 cells (100X) (0-2/hpf)
--- NOTE | 2018-02-13 10:08 | PRG ---
DATE OF SERVICE: 02/12/2018 SUBJECTIVE: Patient was seen and examined at bedside and overnight events noted. Patient denies any shortness of breath or chest pain or palpitation. No history of nausea or vomitin g or diarrhea or fever or chills or cramps. OBJECTIVE: GENERAL: This is a well-built male, in no apparent distress. VITAL SIGNS: Temperature 98.4, pulse 83, respiratory rate 14, blood pressure 126/70. HEENT: Atraumatic, normocephalic. Oral mucosa is moist NECK: Supple. CARDIOVASCULAR: S1 and S2 heard. Rate and rhythm regular. RESPIRATORY: Clear to auscultation. GASTROINTESTINAL: Abdomen is soft. MUSCULOSKELETAL: No tenderness. No edema. DERMATOLOGIC: No skin rash. NEUROLOGIC: Alert and awake and oriented x3. No focal neurologic deficits. Moving all the extremit ies. PSYCHIATRIC: Mood and affect normal. LABORATORY DATA: Not done today. ASSESSMENT AND PLAN: 1. End-stage renal disease, continue on hemodialysis Sunday, Sunday, and Sunday. 2. Hypertension, remove fluid. 3. Edema, controlled, limit fluid. 4. Anemia. Monitor hemoglobin. Plan is to continue on dialysis as tolerated.
--- NOTE | 2018-02-13 12:15 | PRG ---
Patient Name: MARLIN ALLEN Date of service: 02/13/2018 Subjective: Patient was seen and examined at bedside and overnight events noted. Patient denies any shortness of breath or chest pain or palpitation. No history of nausea or vomiting or diarrhea or fever or chills or cramps. Objective: General: This is a well-built male in no apparent distress. Vital signs: Temperature 99.7, pulse 80, respirations 18, blood pressure 132/70. HEENT: Atraumatic, normocephalic. Oral mucosa is moist. Neck: Supple. Cardiovascular: S1 S2 heard. Rate and rhythm regular. Respiratory: Clear to auscultation. Gastrointestinal: Abdomen is soft. Musculoskeletal: No tenderness. No edema. Dermatologic: No skin rash. Neurologic: Alert and awake and oriented X3. No focal neurologic deficits. Moving all the extremit ies. Psychiatric: Mood and affect normal. LABORATORY DATA: Potassium is 3.5, BUN 17, creatinine 3.7. ASSESSMENT AND PLAN: 1. End-stage renal disease, continue on hemodialysis Sunday, Sunday, Sunday. 2. Hypertension, stable. 3. Edema, controlled. 4. Anemia. 5. Monitor renal function closely.
--- NOTE | 2018-02-13 12:28 | PDOC.PN ---
- Subjective Encounter Start Date: 02/13/18 Encounter Start Time: 10:15 Subjective: is getting HD -: no sob - Objective Resuscitation Status: Resuscitation Status FULL:Full Resuscitation MAR Reviewed: Yes Vital Signs & Weight: Vital Signs (12 hours) Temp Pulse Resp BP Pulse Ox 02/13/18 05:49 98.4 F 102 H 18 153/82 H 95 Weight Admit Weight 174 lb Weight 174 lb I&O: 02/12/18 02/13/18 02/14/18 06:59 06:59 06:59 Intake Total 680 325 Output Total 250 350 Balance 430 -25 Result Diagrams: 02/13/18 09:00 02/13/18 09:00 Additional Labs: Accuchecks 02/13/18 02/12/18 02/12/18 05:00 19:50 16:50 POC Glucose 128 H 299 H 238 H Phys Exam - Physical Examination HEENT: PERRLA, moist MMs Neck: no JVD, supple Respiratory: no wheezing, no rales Cardiovascular: RRR, no significant murmur Gastrointestinal: soft, non-tender, positive bowel sounds Musculoskeletal: pulses present Neurological: non-focal, moves all 4 limbs Psychiatric: A&O x 3 Dx/Plan (1) MSSA bacteremia Code(s): R78.81 - BACTEREMIA Status: Acute (2) Diabetic foot ulcer Code(s): E11.621 - TYPE 2 DIABETES MELLITUS WITH FOOT ULCER; L97.509 - NON- PRESSURE CHRONIC ULCER OTH PRT UNSP FOOT W UNSP SEVERITY Status: Acute Qualifiers: Diabetic foot ulcer location: unspecified part of foot Diabetes mellitus type: type 2 Laterality: left Comment: s/p left bka (3) Diabetes mellitus type 2 in nonobese Code(s): E11.9 - TYPE 2 DIABETES MELLITUS WITHOUT COMPLICATIONS Status: Chronic (4) ESRD (end stage renal disease) on dialysis Code(s): N18.6 - END STAGE RENAL DISEASE; Z99.2 - DEPENDENCE ON RENAL DIALYSIS Status: Chronic Comment: M/W/D (5) HTN (hypertension) Code(s): I10 - ESSENTIAL (PRIMARY) HYPERTENSION Status: Chronic Qualifiers: Hypertension type: essential hypertension Qualified Code(s): I10 - Essential (primary) hypertension (6) Normocytic anemia Code(s): D64.9 - ANEMIA, UNSPECIFIED Status: Chronic (7) Peripheral vascular disease Code(s): I73.9 - PERIPHERAL VASCULAR DISEASE, UNSPECIFIED Status: Chronic (8) h/o right bka Status: Chronic (9) Sepsis Code(s): A41.9 - SEPSIS, UNSPECIFIED ORGANISM Status: Acute Qualifiers: Sepsis type: methicillin susceptible Staphylococcus aureus Qualified Code(s ): A41.01 - Sepsis due to Methicillin susceptible Staphylococcus aureus - Plan hemostable -: to continue vanc sliding scale with HD x4 wks -: awaiting rehab placement -: may dc if cleared by * . Review of Systems - Medications/Allergies Allergies/Adverse Reactions: Allergies Allergy/AdvReac Type Severity Reaction Status Date / Time No Known Allergies Allergy Verified 01/21/18 08:33 Medications: Current Medications Acetaminophen (Tylenol) 650 mg PO Q4H PRN PRN Reason: Headache/Fever or Pain Last Admin: 02/10/18 05:54 Dose: 650 mg Hydrocodone Bitart/Acetaminophen ([place] 10/325) 1 tab PO Q4H PRN PRN Reason: Pain 1ST LINE Hydrocodone Bitart/Acetaminophen ([place] 10/325) 2 tab PO Q4H PRN PRN Reason: Pain 2ND LINE Calcium Carbonate (Tums) 1,000 mg PO Q4H PRN PRN Reason: Heartburn or Indigestion Dextrose/Water (Dextrose 50%) 25 gm SLOW IVP PRN PRN PRN Reason: Hypoglycemia Docusate Sodium (Colace) 100 mg PO BID [facility] Last Admin: 02/13/18 08:37 Dose: Not Given Epoetin Johny (Procrit) 10,000 units IVP MoWeFr@0900 [facility] Glucagon (Glucagon) 1 mg IM PRN PRN PRN Reason: Hypoglycemia Heparin Sodium (Porcine) (Heparin) 5,000 units SC BID [facility] Last Admin: 02/13/18 08:37 Dose: Not Given Dextrose/Water (D5w) 1,000 mls @ 0 mls/hr IV .Q0M PRN; As Directed PRN Reason: Hypoglycemia Vancomycin HCl 1.25 gm/ Sodium (Chloride) 250 mls @ 166.667 mls/hr IVPB WILLCALL NANDO Vancomycin HCl 1 gm/ Device 200 mls @ 200 mls/hr IVPB WILLCALL NANDO Vancomycin HCl 750 mg/ Sodium (Chloride) 250 mls @ 250 mls/hr IVPB WILLCALL [facility] Last Admin: 02/13/18 09:36 Dose: 250 mls Vancomycin HCl 500 mg/ Sodium (Chloride) 100 mls @ 100 mls/hr IVPB [facility]CALL [facility] Last Admin: 02/09/18 12:06 Dose: 100 mls Insulin Human Lispro (Humalog) 0 units SC .MILD SLIDING SCALE PRN PRN Reason: Mild Correctional Scale Last Admin: 02/12/18 11:29 Dose: 3 unit Lactulose (Lactulose) 20 gm PO DAILYPRN PRN PRN Reason: Constipation Miscellaneous Medication (Pharmacy To Dose) 0 each IVPB ASDIR PRN PRN Reason: Pharmacy to Dose VANCOMYCIN Morphine Sulfate (Morphine) 2 mg SLOW IVP Q2H PRN PRN Reason: Mild-Moderate Pain (1-5) Last Admin: 02/12/18 05:00 Dose: 2 mg Morphine Sulfate (Morphine) 4 mg IVP Q2H PRN PRN Reason: Moderate to Severe Pain (6-10) Last Admin: 02/13/18 05:43 Dose: 4 mg Hold Vancomycin For (Level >20) 0 each FS .AT DIALYSIS NANDO Ondansetron HCl (Zofran Odt) 4 mg PO Q6H PRN PRN Reason: Nausea/Vomiting Ondansetron HCl (Zofran) 4 mg IVP Q6H PRN PRN Reason: Nausea/Vomiting Sodium Chloride (Flush - Normal Saline) 10 ml IVF Q12HR NANDO Sodium Chloride (Flush - Normal Saline) 10 ml IVF PRN PRN PRN Reason: Saline Flush Temazepam (Restoril) 15 mg PO HSPRN PRN PRN Reason: Insomnia
[2018-02-13] MEDS: HumaLOG 300 UNITS/3 ML VIAL SC PRN (15:34)
--- NOTE | 2018-02-13 15:43 | PDOC.OP ---
Operative Note - Operative Note Operative Note: PROCEDURE: Left below-knee amputation DATE OF PROCEDURE: 02/11/2018 SURGEON: Elizabeth Ruiz M.D. 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 Noah earl is a 64-year-old man with multiple comorbidities including diabetes and end-stage renal failure. He is already status post a right below-knee amputation for diabetic foot infection. He had a left transmetatarsal amputation and developed a large open wound with wet gangrene. He has previously undergone bypass surgery on that left leg and the graft is patent. Vascular surgery did not feel that any further improvement can be obtained in his circulation, and the wound was not felt to have adequate circulation to heal. He underwent a left ankle guillotine amputation to control the infection last Sunday and now presents for formal below-knee amputation. PROCEDURE IN DETAIL: After informed consent was obtained and appropriate preoperative antibiotics continued the patient was taken to the operating room was placed in supine position and general anesthesia administered. He was prepped and draped in standard sterile fashion and the position of the short anterior and long posterior flaps was marked on the skin. This was carefully planned to be below the level of the femoral posterior tibial bypass graft anastomosis to maintain as much circulation to the leg as possible, since it was felt he may rely on retrograde flow through this graft. Anterior incision was made and dissection carried down to the tibia which was exposed anteriorly. The muscles between the tibia and fibula were divided and the anterior tibial vessels identified clamped and ligated. These were severely calcified and appeared occluded. A clamp was placed posterior to the tibia taking care to avoid the posterior tibial vessels. The periosteum was elevated and the tibia transected with the Gigli saw, angling superiorly as the saw approached the anterior surface to avoid a pressure point. The fibula was then dissected free and the periosteum elevated and the fibula divided several centimeters above the level of the tibial transection. The amputation blade was then placed behind the tibia and fibula and the distal leg amputated leaving a long posterior flap. The distal posterior tibial vessel was ligated but no other major patent vessels in the flap were identified. The soleus muscle was trimmed to allow the flap to close and the small bleeding points in the muscle controlled with electrocautery or occasional clips or suture ligation. The tibial bone was smoothed with a bone rasp and the fibula was run sure to back to prevent any sharp edges. The wound was irrigated and the muscular fascia approximated over the stump with interrupted 2-0 Vicryl sutures. The subcutaneous tissues were reapproximated as well with Vicryl suture and then the skin was closed with skin raquel. Xeroform gauze was placed in the incision and the stump was wrapped with Kerlix and then an Luis wrap. The patient was placed in a knee immobilizer, extubated and taken to the recovery room in good condition. Estimated blood loss was 100 and there were no complications. Specimen is left distal leg.
--- NOTE | 2018-02-13 16:00 | PDOC.GSPN ---
Surgery Progress Note: Subj - Subjective Patient reports: no new complaints Narrative: Left BKA dressing is clean and there is no apparent swelling or bleeding. Physical therapy is working with him. Physical therapy, occupational therapy, and rehabilitation consults have been placed and from my standpoint he can go to inpatient rehabilitation at any time. I will plan to take down his dressing tomorrow. Surgery Progress Note: Obj - Vital signs Vital signs: Vital Signs - Most Recent Temp Pulse Resp BP Pulse Ox 98.5 F 100 18 153/82 H 95 02/13/18 12:46 02/13/18 12:46 02/13/18 12:46 02/13/18 05:49 02/13/18 05:49 Surgery Progress Note: Results - Labs Result Diagrams: 02/13/18 09:00 02/13/18 09:00 Lab results: Laboratory Results - last 24 hr 02/13/18 02/13/18 02/13/18 05:00 06:53 09:00 WBC RBC Hgb Hct MCV MCH MCHC RDW Plt Count MPV Neutrophils % Neutrophils % (Manual) Lymphocytes % Monocytes % Eosinophils % Basophils % Neutrophils # Lymphocytes # Monocytes # Eosinophils # Basophils # Hypochromia Plt Morphology Comment Polychromasia Sodium 137 Potassium 3.5 Chloride 98 Carbon Dioxide 32 H Anion Gap 11 BUN 17 Creatinine 3.71 H Estimated GFR (MDRD) 17 Glucose 112 POC Glucose 128 H Calcium 8.2 Vancomycin Trough 13.7 02/13/18 02/13/18 02/13/18 09:00 12:22 15:24 WBC 9.8 RBC 3.16 L Hgb 8.4 L Hct 27.6 L MCV 87.2 MCH 26.7 L MCHC 30.6 L RDW 14.5 Plt Count 363 MPV 6.9 L Neutrophils % 77.8 H Neutrophils % (Manual) Not Reportable Lymphocytes % 11.7 L Monocytes % 9.2 Eosinophils % 1.1 Basophils % 0.2 Neutrophils # 7.6 H Lymphocytes # 1.2 Monocytes # 0.9 H Eosinophils # 0.1 Basophils # 0.0 Hypochromia SLIGHT = 6-15 cells Plt Morphology Comment Appears Adequate Polychromasia SLIGHT = 2-3 cells Sodium Potassium Chloride Carbon Dioxide Anion Gap BUN Creatinine Estimated GFR (MDRD) Glucose POC Glucose 116 H 212 H Calcium Vancomycin Trough
[2018-02-14] MEDS: Docusate 100 MG CAP PO SCH (08:32)
[2018-02-14] MEDS: Heparin 5,000 UNITS/ML VIAL SC SCH (08:34)
[2018-02-14] MEDS: Morphine 5 MG/ML SYRINGE IVP PRN (09:25)
--- NOTE | 2018-02-14 10:27 | PRG ---
DATE OF SERVICE: 02/14/2018 Mr. Jerez is doing alright today. He is getting ready to work with physical therapy. His wound w as examined and is healing well. There is minimal swelling in the stump and the tissues appear healt hy and viable. From my standpoint, he is ready to discharge to inpatient rehab at any time. I would like to see him back in my clinic in 10-14 days to remove his raquel.
[2018-02-14 11:35] VITALS: BP 149/75; TEMP 99.2
--- NOTE | 2018-02-14 13:52 | PRG ---
DATE OF SERVICE: 02/14/2018 SUBJECTIVE: Patient was seen and examined at bedside and overnight events noted. Patient denies any shortness of breath or chest pain or palpitation. No history of nausea or vomitin g or diarrhea or fever or chills or cramps. OBJECTIVE: GENERAL: This is a well-built male, in no apparent distress. VITAL SIGNS: Temperature 97.6, pulse 90, respiratory rate 20, blood pressure 134/68. HEENT: Atraumatic, normocephalic. Oral mucosa is moist NECK: Supple. CARDIOVASCULAR: S1 and S2 heard. Rate and rhythm regular. RESPIRATORY: Clear to auscultation. GASTROINTESTINAL: Abdomen is soft. MUSCULOSKELETAL: No tenderness. No edema. DERMATOLOGIC: No skin rash. NEUROLOGIC: Alert and awake and oriented x3. No focal neurologic deficits. Moving all the extremit ies. PSYCHIATRIC: Mood and affect normal. LABORATORY DATA: No labs done today. ASSESSMENT AND PLAN: 1. End-stage renal disease. Continue on hemodialysis Sunday, Sunday, and Sunday as tolerated. 2. Hypertension. Monitor blood pressure. 3. Edema, remove fluid with dialysis. 4. Anemia. Monitor hemoglobin. 5. Continue dialysis as tolerated.
--- NOTE | 2018-02-14 13:58 | PDOC.PN ---
- Subjective Encounter Start Date: 02/14/18 Encounter Start Time: 09:15 Subjective: feels better, no sob - Objective Resuscitation Status: Resuscitation Status FULL:Full Resuscitation MAR Reviewed: Yes Vital Signs & Weight: Vital Signs (12 hours) Temp Pulse Resp BP Pulse Ox 02/14/18 11:32 99.2 F 92 20 149/75 H 96 02/14/18 08:00 97.6 F 90 20 134/68 94 L 02/14/18 04:00 97.9 F 98 18 150/76 H 94 L Weight Admit Weight 174 lb Weight 174 lb I&O: 02/13/18 02/14/18 02/15/18 06:59 06:59 06:59 Intake Total 325 350 Output Total 350 Balance -25 350 Result Diagrams: 02/13/18 09:00 02/13/18 09:00 Additional Labs: Accuchecks 02/14/18 02/14/18 02/13/18 11:36 04:50 20:02 POC Glucose 234 H 244 H 214 H 02/13/18 15:24 POC Glucose 212 H Phys Exam - Physical Examination HEENT: PERRLA, moist MMs Neck: no nodes, no JVD Respiratory: no wheezing, no rales Cardiovascular: RRR, no significant murmur Gastrointestinal: soft, non-tender, positive bowel sounds Musculoskeletal: pulses present left bka in dressing Neurological: non-focal, moves all 4 limbs Psychiatric: A&O x 3 Dx/Plan (1) MSSA bacteremia Code(s): R78.81 - BACTEREMIA Status: Acute (2) Diabetic foot ulcer Code(s): E11.621 - TYPE 2 DIABETES MELLITUS WITH FOOT ULCER; L97.509 - NON- PRESSURE CHRONIC ULCER OTH PRT UNSP FOOT W UNSP SEVERITY Status: Acute Qualifiers: Diabetic foot ulcer location: unspecified part of foot Diabetes mellitus type: type 2 Laterality: left Comment: s/p left bka (3) Diabetes mellitus type 2 in nonobese Code(s): E11.9 - TYPE 2 DIABETES MELLITUS WITHOUT COMPLICATIONS Status: Chronic (4) ESRD (end stage renal disease) on dialysis Code(s): N18.6 - END STAGE RENAL DISEASE; Z99.2 - DEPENDENCE ON RENAL DIALYSIS Status: Chronic Comment: M/W/D (5) HTN (hypertension) Code(s): I10 - ESSENTIAL (PRIMARY) HYPERTENSION Status: Chronic Qualifiers: Hypertension type: essential hypertension Qualified Code(s): I10 - Essential (primary) hypertension (6) Normocytic anemia Code(s): D64.9 - ANEMIA, UNSPECIFIED Status: Chronic (7) Peripheral vascular disease Code(s): I73.9 - PERIPHERAL VASCULAR DISEASE, UNSPECIFIED Status: Chronic (8) h/o right bka Status: Chronic (9) Sepsis Code(s): A41.9 - SEPSIS, UNSPECIFIED ORGANISM Status: Acute Qualifiers: Sepsis type: methicillin susceptible Staphylococcus aureus Qualified Code(s ): A41.01 - Sepsis due to Methicillin susceptible Staphylococcus aureus - Plan d/w , will arrange for vanc sliding scale with HD x 4 weeks -: may dc to rehab, has been cleared by gen surgery for dc -: wound care for stump per surg advice -: hemostable * .
--- NOTE | 2018-02-14 20:32 | DIS ---
DATE OF ADMISSION: 02/08/2018 DATE OF DISCHARGE: 02/14/2018 DISCHARGE DISPOSITION: To inpatient rehabilitation. PRIMARY DISCHARGE DIAGNOSES: The patient is status post left below knee amputation; methicillin-resistant Staphylococcus aureus bacteremia due to left foot diabetic ulcer; diabetes mellitus type 2; end-stage renal disease, on hemodialysis on Sunday, Wednesdays, and Fridays; hypertension; chronic anemia due to renal disease; peripheral vascular disease; history of right below knee amputation; sepsis due to bacteremia from methicillin sensitive Staph aureus. PROCEDURES DONE DURING HOSPITALIZATION: Venous ultrasound Doppler done on 02/07 on the left lower extremity showed no evidence of DVT. Left ankle guillotine amputation done on 02/08/[address] Renae for wet gangrene and bacteremia. Left below knee amputation done by Dr. Ruiz on 02/11/2018. Blood cultures x2 grew Staph aureus 2/2, resistant to azithromycin, amoxicillin , clarithromycin, and Zosyn, but sensitive to all other antibiotics. Left foot wound cultures grew Staph aureus and enterococcus faecalis, both sensitive to vancomycin, has had right internal jugular vein dialysis catheter cultures drawn on the , 2/2 are negative with no growth at 48 hours. Had a white count of 25 with 83% neutrophils and 10% bands. Had a white count of 25 on the day of admission with 83% neutrophils and 10% bands. Discharge white count is 9 with H&H of 8 and 27, platelet count 363. Sed rate was 111 on the day of admission. Discharge BUN and creatinine is 17 and 3.7. CRP was 35 on the day of admission. Albumin 3.5. Vancomycin trough on the was 13.7 mcg per mL. DISCHARGE MEDICATIONS: Vancomycin sliding scale with hemodialysis for a total of 4 weeks; PhosLo 1334 mg p.o. 3 times daily; Colace 100 mg twice daily; Epogen Sunday, Sunday, Sunday with hemodialysis; heparin 5000 units twice daily for DVT prophylaxis until patient is able to mobilize; Lopressor 25 mg twice daily; Ultram p.r.n. for pain. ALLERGIES: No known drug allergies. INPATIENT CONSULTS: Dr. Melendez for Nephrology. Dr. Houston/Joseph for General Surgery. BRIEF COURSE DURING HOSPITALIZATION: The patient initially got admitted on with complaints of swelling and drainage from the left foot. The patient also had a white count of 25,000 and was septic. He was initially evaluated by Dr. Renae. The patient had left ankle guillotine amputation done initially. His cultures grew Staph aureus which was not methicillin resistant. The patient was on IV antibiotics all through his stay. He was evaluated by Dr. Francois as well. In view of 2/2 blood cultures being positive, the patient is advised to continue vancomycin for a total of 4 weeks with sliding scale with hemodialysis. The patient subsequently had left below knee amputation done by Dr. Ruiz on the . The patient is being discharged to inpatient rehab to learn transfers as he also has a right BKA from before. He is hemodynamically stable. He has been accepted to inpatient rehab today. The patient has been cleared by Dr. Riuz for discharge. I have d/w regarding vancomycin sliding scale with HD. A total of 35 minutes was spent on discharge plan. Please see a face to face documentation on [facility] for the day of discharge. FABRICIOD
[2018-02-15] MEDS ORDERED: Epoetin (ESRD) 10,000 UNITS/ML VIAL IVP SCH (09:00)
[2018-02-15] MEDS ORDERED: Epoetin (NON-ESRD) 20,000 UNITS/ML ML IVP SCH (09:00)
== END 2018-02-14 15:33 | DRG 853 ==
LOC: ERS 17:34 → T4-A 21:53
PROVIDERS: ADMIT Family Medicine; ATTEND Family Medicine
PROC: 0Y6N0Z0 Detachment at Left Foot, Complete, Open Approach (ICD-10-PCS; principal; 2018-02-08)
PROC: 5A1D70Z Performance of Urinary Filtration, Intermittent, Less than 6 Hours Per Day (ICD-10-PCS; 2018-02-09)
PROC: 0Y6J0Z3 Detachment at Left Lower Leg, Low, Open Approach (ICD-10-PCS; 2018-02-11)
PROC: 5A1D70Z Performance of Urinary Filtration, Intermittent, Less than 6 Hours Per Day (ICD-10-PCS; 2018-02-11)
PROC: 5A1D70Z Performance of Urinary Filtration, Intermittent, Less than 6 Hours Per Day (ICD-10-PCS; 2018-02-13)
DX: A41.01 Sepsis due to Methicillin susceptible Staphylococcus aureus (principal); N18.6 End stage renal disease; I96 Gangrene, not elsewhere classified; I12.0 Hypertensive chronic kidney disease with stage 5 chronic kidney disease or end stage renal disease; E11.52 Type 2 diabetes mellitus with diabetic peripheral angiopathy with gangrene; N25.81 Secondary hyperparathyroidism of renal origin; E11.621 Type 2 diabetes mellitus with foot ulcer; E11.22 Type 2 diabetes mellitus with diabetic chronic kidney disease; E78.5 Hyperlipidemia, unspecified; D63.1 Anemia in chronic kidney disease; L97.509 Non-pressure chronic ulcer of other part of unspecified foot with unspecified severity; Z99.2 Dependence on renal dialysis; Z79.899 Other long term (current) drug therapy; Z89.511 Acquired absence of right leg below knee; Z93.3 Colostomy status
CPT/HCPCS: 36415; 36416; 80048; 80053; 80202; 83605; 83735; 85025; 85652; 86140; 87040; 87070; 87077; 87149; 87186; 87205; 88307; 88311; 90471; 90670; 90682; 90935; 96361; 96365; 96366; 96367; 96375; J2270; A4216; G0008; G0009; G0257; G8978-GP-CM; G8979-GP-CL; G8987-GO-CK; G8988-GO-CJ; J1100; J1170; J1642; J1644; J2001; J2250; J2405; J2543; J2704; J3010; J3370; J3490; J7050; Q2036

== ENCOUNTER 2018-05-02 14:00 | Inpatient (IN) | payer MEDICARE ==
[2018-05-02 14:35] LABS: #Eosinphils 0.1 thou/uL (0.0-0.7); #Lymphocytes 1.3 thou/uL (1.20-3.40); #Monocytes 1.3 thou/uL (0.11-0.59); #Neutrophils 11.1 thou/uL (1.40-6.50); %Basophils 0.1 % (0.0-1.0); %Eosinophils 0.7 % (0.0-10.0); %Lymphocytes 9.3 % (21.0-51.0); %Monocytes 9.1 % (0.0-10.0); %Neutrophils 80.9 % (42.0-75.0); Hemoglobin 12.4 g/dL (14.0-18.0); Mean Corpuscular HGB CONC 32.8 g/dL (32.0-36.0); Mean Corpuscular Hemoglobin 29.3 pg (27.0-31.0); Mean Corpuscular Volume 89.3 fL (78.0-98.0); Mean Platelet Volume 8.3 fL (7.4-10.4); Platelet Count 217 thou/uL (130-400); RBC Distribution Width 16.5 % (11.5-14.5); Red Blood Cell (RBC) Count 4.23 mill/uL (4.70-6.10); White Blood Cell (WBC) Count 13.7 thou/uL (4.8-10.8)
--- NOTE | 2018-05-02 14:41 | RAD ---
PORTABLE AP CHEST: Date: 05/02/18 HISTORY: Fever. COMPARISON: 10/19/17. FINDINGS: Tunneled right internal jugular vein hemodialysis catheter is again noted in place, but the tip of th e catheter now overlies the cavoatrial junction. Cardiac silhouette and pulmonary vasculature are wit hin normal limits. The lungs are clear. Vascular calcifications seen thoracic aorta. IMPRESSION: 1. No acute cardiopulmonary process. 2. Tunneled right internal jugular vein hemodialysis catheter. POS: GER
[2018-05-02 15:04] LABS: CKMB 1.5 ng/mL (0-6.6); Troponin I Less than 0.010 ng/mL (< 0.028)
[2018-05-02 15:05] LABS: ALT (SGPT) 17 U/L (8-55); AST (SGOT) 26 U/L (5-34); Albumin 3.8 g/dL (3.4-4.8); Alkaline Phosphatase 129 U/L (40-150); Anion Gap 19 mmol/L (10-20); BUN (Urea Nitrogen) 50 mg/dL (8.4-25.7); Bilirubin, Total 0.3 mg/dL (0.2-1.2); Calc. Creatinine Clearance 0 mL/min (70-130); Calcium 9.4 mg/dL (7.8-10.44); Carbon Dioxide 21 mmol/L (23-31); Chloride 100 mmol/L (98-107); Estimated GFR-MDRD 7; Globulin 4.9 g/dL (2.4-3.5); Glucose 154 mg/dL (80-115); Protein, Total 8.7 g/dL (5.8-8.1); Sodium 134 mmol/L (136-145)
[2018-05-02] MEDS ORDERED: Acetaminophen 500 MG TAB ONE (15:58)
[2018-05-02] MEDS ORDERED: Heparin 5,000 UNITS/ML VIAL ONE (16:23)
[2018-05-02] MEDS ORDERED: Cefepime 2 GM VIAL ONE (16:23)
[2018-05-02] MEDS ORDERED: Vancomycin HCl 1.25 GM in Sodium Chloride 0.9% 250 ML 250 ML IVPB ONE (16:30)
[2018-05-02] MEDS ORDERED: Ondansetron HCl/PF 4 MG/2 ML Vial IVP PRN ×2 (16:38)
[2018-05-02] MEDS ORDERED: Benzonatate 100 MG CAP PO PRN (16:38)
[2018-05-02] MEDS ORDERED: cloNIDine 0.1 MG TAB PO PRN (16:38)
[2018-05-02] MEDS ORDERED: Senokot 8.6 MG TAB PO PRN (16:38)
[2018-05-02] MEDS ORDERED: Famotidine/PF 20 mg/2ml Vial SLOW IVP PRN (16:38)
[2018-05-02] MEDS ORDERED: Nitroglycerin 0.4 MG TAB (25 Tab Bottle) SL PRN (16:38)
[2018-05-02] MEDS ORDERED: Mag-Al 1200 mg/1200 mg/30 ML UDCUP PO PRN (16:38)
[2018-05-02] MEDS ORDERED: Acetaminophen 325 MG TAB PO PRN (16:38)
[2018-05-02] MEDS ORDERED: traMADol HCl 50 MG TAB PO PRN (16:38)
[2018-05-02] MEDS ORDERED: Diabetic Tussin 200 MG/10 ML UDCUP PO PRN (16:38)
[2018-05-02] MEDS ORDERED: hydrALAZINE 20 MG/ML VIAL SLOW IVP PRN (16:38)
[2018-05-02] MEDS ORDERED: Calcium Carbonate 500 MG ChewTAB PO PRN (16:38)
[2018-05-02] MEDS ORDERED: Loratadine 10 MG TAB PO PRN (16:38)
[2018-05-02] MEDS ORDERED: Lorazepam 1 MG TAB PO PRN (16:38)
[2018-05-02] MEDS ORDERED: Bisacodyl 5 MG TAB PO PRN (16:38)
[2018-05-02] MEDS ORDERED: Vancomycin HCl 1.25 GM in Sodium Chloride 0.9% 250 ML 250 ML IVPB SCH (17:15)
[2018-05-02] MEDS ORDERED: HOLD VANCOMYCIN FOR LEVEL >20 FS SCH (17:15)
[2018-05-02] MEDS ORDERED: Vancomycin HCl 500 MG in Sodium Chloride 0.9% 100 ML IVPB SCH (17:15)
[2018-05-02] MEDS ORDERED: Vancomycin Sliding Scale FS ONE (17:15)
[2018-05-02] MEDS ORDERED: Vancomycin HCl 1 GM in Premix Bag 1 BAG IVPB SCH (17:15)
[2018-05-02] MEDS ORDERED: Hydrocortisone Sod Succ/PF 100 mg/2 ml Vial ONE (18:17)
[2018-05-02] MEDS ORDERED: Norepinephrine 8 MG/0.9% NS 250 ML IVPB SCH (19:15)
[2018-05-02] MEDS ORDERED: Insulin Regular 300 UNITS/3 ML VIAL SC PRN (19:20)
[2018-05-02] MEDS ORDERED: Dextrose 50% Abboject 50 ML SYRINGE SLOW IVP PRN (19:20)
[2018-05-02] MEDS ORDERED: Dextrose 5% in Water 1,000 ML IV PRN (19:20)
--- NOTE | 2018-05-02 19:51 | HP ---
DATE OF ADMISSION: 05/02/2018 PRIMARY CARE PHYSICIAN: Gregg Robbins M.D. CHIEF COMPLAINT: Chills. HISTORY OF PRESENTING ILLNESS: Mr. Jerez is a pleasant 63-year-old male with past medical history of end-stage renal disease on hemodialysis Sunday, Sunday and Sunday as well as diabetes and colo stomy for some reason who presented to the emergency room with above-mentioned complaint. History is mainly obtained by the patient himself and electronic medical records have been reviewed. The [place] was recently admitted to our facility in 02/2018 and was admitted and treated for MRSA infection o f the left foot. He underwent a left below knee amputation and was treated with protracted course of vancomycin with dialysis by sliding scale for four weeks. Today, he came back for complains of feeling poorly and having chills since yesterday. Other than th at, he denies any sick contacts. He denies any chest pain, shortness of breath, orthopnea, PND. He denies any specific fever, cough, rhinorrhea, or sore throat. He denies any nausea, vomiting, diarrh ea, abdominal pain. He denies any redness or sores in his body generally. Upon presentation to the ER, he was tachycardic with heart rate of 130 with a fever of 100.9. It samy ied from 101.4-102. Initially, he was stable in the ER, but later became hypotensive requiring 2 lit ers of IV fluid resuscitation. Eventually, the decision was made that he would need to be started on pressors and he is currently undergoing a central line placement by the emergency room physician and will be admitted to the critical care unit. His workup in the ER included a chest x-ray which did not have any overt infiltrates. Right internal jugular hemodialysis catheter is seen in place. His lab work showed leukocytosis with WBCs of 13.7 with neutrophilia. He does have high potassium at 6 despite getting dialyzed only yesterday. His la ctic acid is elevated to 2.3. At this time, he is being admitted to CCU for sepsis and septic shock of unclear etiology. PAST MEDICAL HISTORY: 1. Hypertension. 2. Diabetes mellitus. 3. Dyslipidemia. 4. End-stage renal disease on hemodialysis. 5. Anemia of chronic kidney disease. 6. Anxiety and depression. 7. Secondary hyperparathyroidism. 8. Peripheral vascular disease. 9. History of Saulo's gangrene. 10. Right IJ tunneled catheter placement. PAST SURGICAL HISTORY: 1. Dialysis access. 2. Bilateral below knee amputation. 3. Colostomy. SOCIAL HISTORY: Single and lives by himself. He denies any drug, tobacco or alcohol abuse. ALLERGIES: No known medication allergies. FAMILY HISTORY: Significant for diabetes mellitus. MEDICATIONS: Not known. Further need to be updated. REVIEW OF SYSTEMS: The following complete review of systems was negative, unless otherwise mentioned in the HPI or below: Constitutional: Weight loss or gain, ability to conduct usual activities. Skin: Rash, itching. Eyes: Double vision, pain. ENT/Mouth: Nose bleeding, neck stiffness, pain, tenderness. Cardiovascular: Palpitations, dyspnea on exertion, orthopnea. Respiratory: Shortness of breath, wheezing, cough, hemoptysis, fever or night sweats. Gastrointestinal: Poor appetite, abdominal pain, heartburn, nausea, vomiting, constipation, or diarr hea. Genitourinary: Urgency, frequency, dysuria, nocturia. Musculoskeletal: Pain, swelling. Neurologic/Psychiatric: Anxiety, depression. Allergy/Immunologic: Skin rash, bleeding tendency. A 12-point review of systems is done and it is negative except for those mentioned in the history and physical. LABORATORY DATA AND IMAGING DATA: CBC shows WBCs at 13.7, hemoglobin 12.4, platelet count of 217,000 , 80% neutrophils. Serum chemistries: Sodium 134, potassium 6, bicarbonate 21, BUN 50, creatinine 7 .60, blood sugar 154. Cardiac enzymes and liver enzymes are within normal limits. Lactic acid is 2. 3. Chest x-ray by my review has no evidence of pulmonary edema or effusion. PHYSICAL EXAMINATION: GENERAL: The patient appears uncomfortable, but is awake, alert, oriented x3. Despite the low blood pressure and fast heart rate, he reports that he is feeling fine. HEENT: Mucous membrane is moist and pink. No oropharyngeal exudate or erythema. Head is normocepha lic, atraumatic. Pupils equal, reactive to light and accommodation. Extraocular movement intact. NECK: Supple without any lymphadenopathy, JVD or bruit. CHEST: Clear to auscultation without any wheezing, rales or rhonchi. Rhythm is regular without any murmur, rubs or gallops. Right IJ catheter is noticed. ABDOMEN: Soft, nontender, nondistended. Colostomy is present with soft formed stools in the bag wit hout any blood. EXTREMITIES: Bilateral BKA noticed. SKIN: Free of any erythema, warmth or sores. NEUROLOGIC: Examination is nonfocal. PSYCHIATRIC: Normal affect. IMPRESSION AND PLAN: 1. Sepsis with septic shock. The patient has been adequately resuscitated with 2 liters IV fluid an d because he is a dialysis patient and still remains hypotensive, the decision was made to start him on pressors and admit him to the Critical Care Unit. He will also receive 1 dose of stress steroids in the emergency room. If his blood pressure does not improve, we will start him on daily hydrocorti sone for the same. No clear source of infection is evident at this time. Most likely he seems to mueller ve line sepsis from the right IJ catheter. It might need to be discontinued and he might need to hav e a new IV access once the infection has cleared. Bacteremia will not be surprising. He has blood c ultures and line cultures drawn in the emergency room and we will monitor the results. For now, he w ill be empirically treated with vancomycin and Zosyn. There is no evidence to suggest pneumonia or g astroenterological infections. The patient cannot produce a urine sample to check for urinary tract infection. We will request consultation from Infectious Disease specialist, Dr. Francois as well as Pul monary and Critical Care Medicine, Dr. Little. 2. Hyperkalemia. The patient's ceramic designer, Dr. Melendez has been notified. I was told that the katelyn joseph will undergo emergent dialysis today with fluid removal as tolerated as well. We will repeat t he potassium and renal function in the morning. 3. Lactic acidosis secondary to severe sepsis and hypotension. 4. Mild hyponatremia, monitor. 5. End-stage renal disease, hemodialysis as per the Nephrology. We will avoid any nephrotoxic agent s and monitor renal function on a daily basis. 6. Diabetes mellitus type 2. We will start him on insulin sliding scale and monitor Accu-Cheks clos nury. Further confirm his home medications. We will restart his home medication judiciously. 7. History of MRSA of left foot infection. He is status post protracted course of IV antibiotics an d amputation. He will be covered for MRSA this admission as well until ruled out. 8. Hypertension. Resume home medications once confirmed if the blood pressure allows. 9. Dyslipidemia. 10. Anemia of chronic kidney disease appears stable at this time. 11. History of peripheral vascular disease. 12. History of colostomy. Provide ostomy care while he is here. 13. Deep venous thrombosis and gastrointestinal prophylaxis with subcutaneous heparin and IV Pepcid b.i.d. 14. Add p.r.n. medication order. DISPOSITION: Mr. Jerez is currently being admitted to the hospital with severe sepsis and septic shock. Estimated length of stay is at least 2-3 midnights. Further management will depend upon his clinical course. Total time spent in taking care of this critically ill patient is 50 minutes.
[2018-05-02 20:04] LABS: Lactic Acid 1.6 mmol/L (0.5-2.2)
[2018-05-02] MEDS ORDERED: Vancomycin HCl 500 GM in Sodium Chloride 0.9% 250 ML 300 ML IVPB SCH (21:00)
[2018-05-02] MEDS: Piperacillin/Tazobactam 4.5 GM in Sodium Chloride 0.9% 100 ML IVPB SCH ×2 (21:37→21:38)
[2018-05-02] MEDS: Heparin 5,000 UNITS/ML VIAL SC SCH (21:39)
[2018-05-02 23:19] LABS: HBSAg Index 0.16 S/CO (0-0.99); Hep B Surf Ag Non-Reactive S/CO (NonReactive)
[2018-05-03] MEDS: Piperacillin/Tazobactam 4.5 GM in Sodium Chloride 0.9% 100 ML IVPB SCH ×2 (00:41→06:18)
--- NOTE | 2018-05-03 01:46 | CON ---
DATE OF CONSULTATION: 05/02/2018 CONSULTING PHYSICIAN: Valentina Encarnacion MD. REASON FOR CONSULTATION: End-stage renal disease evaluation and care. REASON FOR ADMISSION: Chills and fever. HISTORY OF PRESENT ILLNESS: A 63-year-old male with history of type 2 diabetes, hypertension, hyperl ipidemia, end-stage renal disease, who came to the hospital with fever, chills, and is being evaluate d for sepsis and infection. The patient does have a tunneled dialysis catheter. The patient had fis christina placement in the past, which failed. He complains of fever, chills started in this afternoon. No nausea or vomiting. He is feeling a little bit better. He already got 2.5 L of fluid. His blood pressure is better. He was also found to be tachycardic in the 150s. No chest pain or shortness of breath reported. No abdominal pain, back pain. No leg swelling. No skin rash. PAST MEDICAL HISTORY: Positive for hypertension, type 2 diabetes, hyperlipidemia, end-stage renal di sease, anemia, anxiety, depression, secondary hyperparathyroidism, and peripheral vascular disease. PAST SURGICAL HISTORY: Dialysis access placement, bilateral below knee amputation, colostomy. HOME MEDICATIONS: Not available at this time. ALLERGIES: No known drug allergies. SOCIAL HISTORY: No smoking, alcohol, or illicit drug abuse. FAMILY HISTORY: Positive for diabetes. REVIEW OF SYSTEMS: The following complete review of systems was negative, unless otherwise mentioned in the HPI or below: Constitutional: Weight loss or gain, ability to conduct usual activities. Sk in: Rash, itching. Eyes: Double vision, pain. ENT/Mouth: Nose bleeding, neck stiffness, pain, te nderness. Cardiovascular: Palpitations, dyspnea on exertion, orthopnea. Respiratory: Shortness of breath, wheezing, cough, hemoptysis, fever or night sweats. Gastrointestinal: Poor appetite, abdom inal pain, heartburn, nausea, vomiting, constipation, or diarrhea. Genitourinary: Urgency, frequenc y, dysuria, nocturia. Musculoskeletal: Pain, swelling. Neurologic/Psychiatric: Anxiety, depressio n. Allergy/Immunologic: Skin rash, bleeding tendency. PHYSICAL EXAMINATION: GENERAL: This is a well-built male in no apparent distress. VITAL SIGNS: Temperature afebrile, pulse 142, respiratory rate 24, blood pressure 112/76. HEENT: Atraumatic, normocephalic. Oral mucosa is moist. NECK: Supple, no masses. HEART: S1, S2. Rate and rhythm regular. RESPIRATORY: Clear. MUSCULOSKELETAL: No tenderness. No edema. SKIN: No rash. NEUROLOGIC: Alert, awake. PSYCHIATRIC: Normal mood and affect. LABORATORY DATA: Potassium is 6.0, BUN 50, creatinine is 7.6, hemoglobin is 10.4. ASSESSMENT AND PLAN: 1. End-stage renal disease. Continue on hemodialysis as tolerated. We will have 2 hours of dialysi s today and then continue dialysis Sunday, Sunday, and Sunday. 2. Hyperkalemia. Limit potassium. We will have dialysis. 3. Edema, controlled. 4. Hypertension. 5. Anemia. We will monitor. 6. Sepsis, rule out any infection. Plan is to continue on dialysis as tolerated. Plan is to have 2 hours of dialysis today and continue dialysis as tolerated. We will follow. Thank you for the consult.
[2018-05-03 05:43] LABS: ALT (SGPT) 10 U/L (8-55); AST (SGOT) 12 U/L (5-34); Albumin 3.1 g/dL (3.4-4.8); Alkaline Phosphatase 92 U/L (40-150); Anion Gap 15 mmol/L (10-20); BUN (Urea Nitrogen) 34 mg/dL (8.4-25.7); Bilirubin, Total 0.5 mg/dL (0.2-1.2); Calc. Creatinine Clearance 17 mL/min (70-130); Calcium 8.5 mg/dL (7.8-10.44); Carbon Dioxide 23 mmol/L (23-31); Chloride 103 mmol/L (98-107); Estimated GFR-MDRD 10; Globulin 3.7 g/dL (2.4-3.5); Glucose 160 mg/dL (80-115); Potassium 4.6 mmol/L (3.5-5.1); Protein, Total 6.8 g/dL (5.8-8.1); Sodium 136 mmol/L (136-145)
--- NOTE | 2018-05-03 07:53 | CON ---
DATE OF CONSULTATION: 05/03/2018 CONSULTING PHYSICIAN: Dr. Encarnacion. REASON FOR CONSULTATION: Sepsis. HISTORY OF PRESENT ILLNESS: The patient presented to the hospital yesterday feeling cold. He was initially tachycardic with a fever of 102. It was thought that he would need vasopressors and he was admitted to the CCU. It ended up he did not need vasopressors and has done well overnight. Source of his infection is unclear, but he does have an indwelling right IJ tunneled dialysis catheter that has been there for over a year. PAST MEDICAL HISTORY: 1. End-stage renal disease, requiring hemodialysis. 2. Hypertension. 3. Diabetes mellitus. 4. Hyperlipidemia. 5. Colostomy. 6. Bilateral lower extremity [id number] amputations. 7. Anxiety. 8. Hyperparathyroidism secondary to renal disease. 9. Saulo's gangrene. 10. Peripheral vascular disease. SOCIAL HISTORY: Nonsmoker, quit drinking alcohol in 1981. ALLERGIES: None. FAMILY MEDICAL HISTORY: Unremarkable. MEDICATIONS PRIOR TO ADMISSION: Tramadol, vancomycin, metoprolol, heparin, Procrit, docusate calcium. REVIEW OF SYSTEMS: A 12-point review of systems is otherwise negative. PHYSICAL EXAMINATION: VITAL SIGNS: Temperature 98.6, pulse 86, blood pressure 145/53, O2 sat 100%. GENERAL: He is awake and alert and in no distress. HEENT EXAM: Pupils react. Sclerae icteric. Oropharynx clear. NECK: Without adenopathy or JVD. CHEST: He has a tunneled right IJ dialysis catheter, has no erythema around the insertion site. CARDIOVASCULAR: S1 and S2 regular, no murmur. LUNGS: Clear without wheezing or rhonchi. ABDOMEN: Colostomy noted, appears to be well cared for. EXTREMITIES: No clubbing or cyanosis. Bilateral below-knee amputations. LABORATORY DATA: White blood cell count 13.7, hematocrit 37.7, platelet count 217. Sodium 136, potassium 4.6, chloride 103, CO2 of 23, BUN 34, creatinine 5.6 , glucose 160. ASSESSMENT: Presumed sepsis at admission - no clear source. PLAN: The patient can be moved out to the medical floor. He will continue antibiotics. Continue dialysis. Await culture results. 70 minutes of time was spent performing consult. Of that 70 minutes, greater than 50% of the time was spent with the patient and/or on the patient's unit in the hospital. CAESAR
[2018-05-03 08:07] LABS: Hemoglobin 10.7 g/dL (14.0-18.0); Mean Corpuscular Hemoglobin 28.1 pg (27.0-31.0); Mean Corpuscular Volume 90.5 fL (78.0-98.0); Mean Platelet Volume 8.7 fL (7.4-10.4); Platelet Count 175 thou/uL (130-400); RBC Distribution Width 16.2 % (11.5-14.5); Red Blood Cell (RBC) Count 3.81 mill/uL (4.70-6.10); White Blood Cell (WBC) Count 10.3 thou/uL (4.8-10.8)
[2018-05-03 08:21] LABS: Band 15 % (5-11); Lymphocytes 2 % (21-51); MDiff Complete? YES; Monocytes 9 % (0-10); Neutrophil 72 % (42-75); PLT Morphology Comment Appears Adequate; Polychromasia SLIGHT = 2-3 cells (100X) (0-2/hpf); Reactive Lymphocytes 1 % (0-10)
[2018-05-03] MEDS: Heparin 5,000 UNITS/ML VIAL SC SCH ×2 (09:06→20:05)
--- NOTE | 2018-05-03 10:48 | PRG ---
Patient Name: MARLIN ALLEN Date of service: 05/03/2018 Subjective: Patient was seen and examined at bedside and overnight events noted. Patient denies any shortness of breath or chest pain or palpitation. No history of nausea or vomiting or diarrhea or fever or chills or cramps. Objective: General: This is a well-built male in no apparent distress Vital signs: Temperature 97.5, pulse 80, respiratory rate 18, blood pressure 126/49. HEENT: Atraumatic, normocephalic. Oral mucosa is moist. Neck: Supple. Cardiovascular: S1 S2 heard. Rate and rhythm regular. Respiratory: Clear to auscultation. Gastrointestinal: Abdomen is soft. Musculoskeletal: No tenderness. No edema. Dermatologic: No skin rash. Neurologic: Alert and awake and oriented X3. No focal neurologic deficits. Moving all the extremit ies. Psychiatric: Mood and affect normal. LABORATORY DATA: Potassium is 4.6, BUN 34, creatinine is 5.6. ASSESSMENT AND PLAN: 1. End-stage renal disease. Continue on hemodialysis Sunday, Sunday, and Sunday. We will have d ialysis. 2. Hyperkalemia, better. Limit potassium. 3. Hypertension. 4. Edema. Will have dialysis today and continue dialysis Sunday, Sunday, Sunday.
[2018-05-03] MEDS ORDERED: Heparin 1,000 UNITS/ML VIAL ONE (11:11)
[2018-05-03] MEDS: Piperacillin/Tazobactam 2.25 GM in Sodium Chloride 0.9% 100 ML IVPB SCH ×3 (12:06→20:06)
[2018-05-03 12:33] LABS: Vancomycin, Random 13.8 ug/mL (See Comment)
--- NOTE | 2018-05-03 16:31 | PRG ---
DATE OF SERVICE: 05/03/2018 SUBJECTIVE: The patient is seen and examined at bedside. He is in ICU bed #8. He is feeling signif icantly better compared to how he felt yesterday. OBJECTIVE: VITAL SIGNS: Blood pressure is 141/68, pulse is 91, O2 saturation is 100% on nasal cannula. HEAD: Atraumatic, normocephalic. EYES: PERRLA. Sclerae nonicteric. ORAL MUCOSA: Somewhat dry. NECK: Supple, no lymphadenopathy, JVD none. LUNGS: Breath sounds are diminished at both bases. HEART: S1 and S2 normal. No S3, no S4. ABDOMEN: Soft, nontender. There is a colostomy bag in place with brownish liquidy stool. EXTREMITIES: A 1+ peripheral edema seen bilaterally on lower extremities. NEUROLOGIC: He follows my commands. He moves his all 4 extremities. LABORATORY DATA: Showed white count of 10.3, hemoglobin 10.7, hematocrit 34.4, platelet count 175,00 0, 15 bands. Chemistry: Normal electrolytes, BUN 34, creatinine 5.82, glucose 160. Glycemia is ran ging from 122-131 on Accu-Cheks, albumin 3.1, globulin 3.7. The rest of chemistry within normal limi ts. Microbiology: No growth to date on blood cultures. IMPRESSION AND PLAN: 1. Sepsis, hemodynamically improved to the point that he can be transferred out from the Critical Ca re Unit. 2. Hyperkalemia, corrected with hemodialysis. 3. Lactic acidosis secondary to #1, improved. 4. End-stage renal disease on hemodialysis per Dr. Melendez. 5. Diabetes mellitus type 2 on a sliding scale and Accu-Cheks. 6. History of MRSA of the left foot infection and status post below the knee bilateral amputations. 7. Hypertension. 8. Anemia of chronic disease. 9. History of peripheral vascular disease. He is going to be continued on his vancomycin and Zosyn for severe sepsis until we have more clear picture on his cultures. We will continue his dialysis pe r Dr. Melendez. We will continue DVT prophylaxis with 5000 units twice a day subcutaneously and await ing for urine and blood cultures.
--- NOTE | 2018-05-03 21:09 | CON ---
DATE OF CONSULTATION: 05/03/2018 REASON FOR CONSULTATION: Fever and chills. HISTORY OF PRESENT ILLNESS: A 63-year-old gentleman whom I had seen in February this year when he presented with a history of hypertension, type 2 diabetes, hyperlipidemia, and end-stage renal disease on hemodialysis with tunneled right IJ catheter as well as peripheral vascular disease. 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 He did have methicillin-susceptible Staphylococcus aureus infection with bacteremia and he was treated for a protracted period of time at dialysis. 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 During that time colostomy was placed. He still has the colostomy in the right lower quadrant. PAST SURGICAL HISTORY: Below-knee amputations due to necrotizing infections, Saulo's gangrene which led to extensive debridements and diverting colostomy , end-stage renal disease with placement of a hemodialysis catheter. SOCIAL HISTORY: He lives by himself. No smoking. ALLERGIES: None. FAMILY HISTORY: Type 2 diabetes. CURRENT MEDICATIONS: Tylenol, Maalox, Tessalon, Dulcolax, Tums, Catapres, dextrose, Pepcid, glucagon, Robitussin, heparin, Apresoline, insulin, Claritin, Ativan, Nitrostat, Zosyn, Zofran, and vancomycin. PHYSICAL EXAMINATION: VITAL SIGNS: T-max 99.1, blood pressure 120/70, pulse 83, respirations 18, O2 sat 97%. SKIN: Shows the bilateral BKA stump sites with a completely healed skin site, right tunneled IJ hemodialysis catheter with normal appearing exit site and no tunnel inflammatory changes. He does not have a Luz catheter. There is a colostomy in the right lower quadrant, which appears normal with soft stool in the bag. No lymphadenopathy. The sclerae are white. Pupils are reactive. He has marked visual impairment due to retinopathy. His oral cavity is moist. Numerous missing teeth. NECK: Supple, no jugular vein distention. LUNGS: Symmetric, clear breath sounds. HEART: S1, S2, regular rate. No S3, S4. ABDOMEN: Soft, not distended, not tender. No ascites. No bladder distention. Able to move all extremities equally. NEUROLOGIC: Cognitive function appears to be intact. LABORATORY DATA: White cell count 13,000 down to 10,000, hemoglobin 12 and 10, platelets 175,000, 80% neutrophils and now we have 72% neutrophils and 15% bands. Chemistry with a creatinine 5.62. Liver profile normal. Albumin 3.1. Random vancomycin of 13.8. Serology with nonreactive hepatitis B surface antigen. Microbiology with 3 sets of blood cultures, at this time no growth. IMAGING STUDIES: Include chest x-ray is the only imaging study showing no infiltrates. ASSESSMENT and DISCUSSION: End-stage renal disease secondary to type 2 diabetes mellitus with tunneled hemodialysis catheter which has been there for the past 4 months due to difficulties and is establishing fistula for dialysis access. Now he presents with chills with general malaise. Otherwise, no focal inflammatory process in the exam noticeable. The differential diagnosis includes catheter site colonization with bacteremia as the most likely scenario. A respiratory tract infection is less likely including respiratory viral infection. No evidence of intra-abdominal inflammatory process or bone and joint infection at this point in time. He did have some lower back pain, but that seemed to have resolved, but may have to reassess if the pain returns. If the blood cultures turn positive, then we probably have to remove his hemodialysis catheter and then treat with protracted IV antimicrobial therapy again. since he was bacteremic with Staphylococcus aureus in January, this would be the most likely scenario recrudescence of Staphylococcus aureus bacteremia, but we will see. CAESAR
[2018-05-03] MEDS: Vancomycin HCl 750 MG in Sodium Chloride 0.9% 250 ML 250 ML IVPB SCH (21:10)
[2018-05-04] MEDS: Piperacillin/Tazobactam 2.25 GM in Sodium Chloride 0.9% 100 ML IVPB SCH ×4 (01:56→20:59)
[2018-05-04] MEDS: Heparin 5,000 UNITS/ML VIAL SC SCH ×2 (09:24→20:59)
--- NOTE | 2018-05-04 10:09 | PRG ---
DATE OF SERVICE: 05/04/2018 SUBJECTIVE: Patient was seen and examined at bedside and overnight events noted. Patient denies any shortness of breath or chest pain or palpitation. No history of nausea or vomiting or diarrhea or f ever or chills or cramps. OBJECTIVE: GENERAL: This is a well-built male in no apparent distress. VITAL SIGNS: Temperature 98.3, pulse 80, respiratory rate 18, and blood pressure 146/75. HEENT: Atraumatic, normocephalic, Oral mucosa is moist. Neck: Supple. Cardiovascular: S1 and S2 heard. Rate and rhythm regular. Respiratory: Clear to auscultation. Gastrointestinal: Abdomen is soft. Musculoskeletal: No tenderness, No edema. Dermatologic: No skin rash. Neurologic: Alert and awake and oriented x3. No focal neurologic deficits. Moving all the extremit ies. Psychiatric: Mood and affect normal. LABORATORY DATA: No labs done today. ASSESSMENT AND PLAN: 1. End-stage renal disease. We will continue hemodialysis Sunday, Sunday, and Sunday. 2. Hyperkalemia. Limit potassium. 3. Hypertension, stable. 4. Edema, control. Plan is to continue on dialysis as tolerated.
--- NOTE | 2018-05-04 14:44 | PDOC.PN ---
- Subjective Encounter Start Date: 05/04/18 Encounter Start Time: 10:20 -: old records requested/rev Pt seen and examined, chart reviewed in its entirety, this is my first visit with this patient feeling better, no more F/C, no rigors, no n/V/D/C. Monalisa abs without rash. Cultures reaming neg to date. Planning on Vanc with HD supervisor intermediates All systems reviewed and neg for all except as stated above - Objective MAR Reviewed: Yes Vital Signs & Weight: Vital Signs (12 hours) Temp Pulse Resp BP BP Pulse Ox 05/04/18 10:57 99.0 F 88 18 137/77 97 05/04/18 08:00 98.8 F 92 20 92 L 05/04/18 07:27 98.8 F 92 20 146/75 H 92 L Weight Weight 204 lb 9.423 oz Most Recent Monitor Data Heart Rate from ECG 88 NIBP 126/49 NIBP BP-Mean 65 Respiration from ECG 20 SpO2 100 I&O: 05/03/18 05/04/18 05/05/18 06:59 06:59 06:59 Intake Total 460 950 360 Output Total 375 420 Balance 85 530 360 Result Diagrams: 05/03/18 04:33 05/03/18 04:33 Additional Labs: Accuchecks 05/04/18 05/04/18 05/03/18 10:52 04:20 21:11 POC Glucose 98 100 151 H 05/03/18 15:53 POC Glucose 135 H Radiology Reviewed by me: Yes EKG Reviewed by me: Yes Phys Exam - Physical Examination Constitutional: NAD HEENT: PERRLA, moist MMs, sclera anicteric, oral pharynx no lesions Neck: no nodes, no JVD, supple, full ROM Respiratory: no wheezing, no rales, no rhonchi, clear to auscultation bilateral Cardiovascular: RRR, no significant murmur, no rub Gastrointestinal: soft, non-tender, no distention, positive bowel sounds bilateral BKA, stumps well healed, no wound Neurological: non-focal, moves all 4 limbs Lymphatic: no nodes Psychiatric: normal affect, A&O x 3 Skin: no rash, normal turgor, cap refill <2 seconds Deviation from normal: Right IJ permcath site c/D/I Dx/Plan (1) Septic shock Code(s): A41.9 - SEPSIS, UNSPECIFIED ORGANISM; R65.21 - SEVERE SEPSIS WITH SEPTIC SHOCK Status: Resolved Comment: present on admit, improving, now. elevated WBC, lactate, fevers, presumed bacterialinfection and hypotensive depsite fluids on admit (2) Diabetes mellitus type 2 with complications Code(s): E11.8 - TYPE 2 DIABETES MELLITUS WITH UNSPECIFIED COMPLICATIONS Status: Chronic Qualifiers: Diabetes mellitus supervisor intermediates insulin use: without supervisor intermediates use Qualified Code(s): E11.8 - Type 2 diabetes mellitus with unspecified complications (3) Noncompliance with renal dialysis Code(s): Z91.15 - PATIENT'S NONCOMPLIANCE WITH RENAL DIALYSIS Status: Chronic (4) ESRD (end stage renal disease) on dialysis Code(s): N18.6 - END STAGE RENAL DISEASE; Z99.2 - DEPENDENCE ON RENAL DIALYSIS Status: Chronic Comment: M/W/D (5) HTN (hypertension) Code(s): I10 - ESSENTIAL (PRIMARY) HYPERTENSION Status: Chronic Qualifiers: Hypertension type: essential hypertension (6) Peripheral vascular disease Code(s): I73.9 - PERIPHERAL VASCULAR DISEASE, UNSPECIFIED Status: Chronic - Plan cont current plan of care, continue antibiotics * .
--- NOTE | 2018-05-04 15:37 | PRG ---
DATE OF SERVICE: 05/04/2018 SERVICE: Pulmonary Medicine. INTERVAL HISTORY: The patient is doing fine from a respiratory standpoint. He denies any current ch est pain, nausea, vomiting, shortness of breath. Otherwise, he is in his usual state of health. He is sitting in his wheelchair. He has actually no complaints at this point. OBJECTIVE: VITAL SIGNS: Afebrile, pulse 88, blood pressure 137/77, respirations 18, saturation 97% on room air. GENERAL: The patient is awake, alert, no apparent distress. LUNGS: Excellent air entry. There is no prolonged expiratory phase, wheezing, rhonchi, or crackles present. HEART: Normal rate, regular. ABDOMEN: Soft, nontender, nondistended. Bowel sounds are positive. MUSCULOSKELETAL: No cyanosis or clubbing. There is no pitting edema. NEUROLOGIC: Grossly nonfocal. LABORATORY: Blood sugar ranges from 92-151. Blood cultures x2 and urine culture negative to date. ASSESSMENT: 1. Sepsis, possible. 2. End-stage renal disease. DISCUSSION AND PLAN: At this point, the patient has no further requirements for inpatient Pulmonary or Critical Care opinion, and I will sign off. Please call with additional questions or concerns mov ing forward.
[2018-05-05] MEDS: Piperacillin/Tazobactam 2.25 GM in Sodium Chloride 0.9% 100 ML IVPB SCH ×4 (02:35→20:00)
[2018-05-05] MEDS: Heparin 5,000 UNITS/ML VIAL SC SCH ×2 (08:30→19:55)
--- NOTE | 2018-05-05 12:44 | PRG ---
DATE OF SERVICE: 05/05/2018 SUBJECTIVE: Patient was seen and examined at bedside and overnight events noted. Patient denies any shortness of breath or chest pain or palpitation. No history of nausea or vomiting or diarrhea or fever or chills or cramps. OBJECTIVE: GENERAL: This is a well-built male, in no apparent distress. VITAL SIGNS: Temperature 98.1, pulse 70, respiratory rate 18, blood pressure 127/68. HEENT: Atraumatic, normocephalic. Oral mucosa is moist NECK: Supple CARDIOVASCULAR: S1, S2 heard, Rate and rhythm regular. RESPIRATORY: Clear to auscultation. GASTROINTESTINAL: Abdomen is soft. MUSCULOSKELETAL: No tenderness. No edema. DERMATOLOGIC: No skin rash. NEUROLOGIC: Alert and awake and oriented x3. No focal neurologic deficits. Moving all the extremit ies. PSYCHIATRIC: Mood and affect normal. LABORATORY: Not done today. ASSESSMENT AND PLAN: 1. End-stage renal disease. Continue on hemodialysis Sunday, Sunday, and Sunday. 2. Hyperkalemia. Limit potassium intake. We will have dialysis. 3. Hypertension, stable. 4. Edema, controlled. 5. Anemia. Monitor hemoglobin. Plan is to continue dialysis Sunday, Sunday, and Sunday as tolerated. Limit potassium intake. We will follow.
[2018-05-06] MEDS: Piperacillin/Tazobactam 2.25 GM in Sodium Chloride 0.9% 100 ML IVPB SCH ×4 (03:33→20:49)
[2018-05-06] MEDS ORDERED: Heparin 10,000 UNITS/ 10 ML VIAL ONE (09:00)
--- NOTE | 2018-05-06 11:08 | PRG ---
DATE OF SERVICE: 05/06/2018 SUBJECTIVE: Patient was seen and examined at bedside and overnight events noted. Patient denies any shortness of breath or chest pain or palpitation. No history of nausea or vomiting or diarrhea or f ever or chills or cramps. OBJECTIVE: GENERAL: This is a well-built male in no apparent distress. VITAL SIGNS: Temperature 99.3, pulse 87, respiratory rate 18, blood pressure 142/73. HEENT: Atraumatic, normocephalic. Oral mucosa is moist. NECK: Supple. CARDIOVASCULAR: S1, S2 heard. Rate and rhythm regular. RESPIRATORY: Clear to auscultation. GASTROINTESTINAL: Abdomen is soft. MUSCULOSKELETAL: No tenderness. No edema. DERMATOLOGIC: No skin rash. NEUROLOGIC: Alert and awake and oriented x3. No focal neurologic deficits. Moving all the extremiti es. PSYCHIATRIC: Mood and affect normal. LABORATORY DATA: Not done today. ASSESSMENT AND PLAN: 1. End-stage renal disease, continue on hemodialysis. 2. Hyperkalemia, better. 3. Edema, controlled. 4. Hypertension, stable. 5. Anemia. Monitor hemoglobin. Overall, tolerated dialysis well. We will continue on dialysis Sunday, Sunday and Sunday.
[2018-05-06 12:22] LABS: Vancomycin, Random 13.9 ug/mL (See Comment)
--- NOTE | 2018-05-06 12:23 | PDOC.PN ---
- Subjective Encounter Start Date: 05/06/18 Encounter Start Time: 12:21 FEELS WELL. NO COMPLAINTS. TOLERATED HD WELL. - Objective MAR Reviewed: Yes Vital Signs & Weight: Vital Signs (12 hours) Temp Pulse Resp BP Pulse Ox 05/06/18 12:08 98.5 F 82 18 115/66 95 Weight Weight 202 lb 13.204 oz Most Recent Monitor Data Heart Rate from ECG 88 NIBP 126/49 NIBP BP-Mean 65 Respiration from ECG 20 SpO2 100 I&O: 05/05/18 05/06/18 05/07/18 06:59 06:59 06:59 Intake Total 1060 2120 200 Output Total 550 1650 Balance 510 470 200 Result Diagrams: 05/03/18 04:33 05/03/18 04:33 Additional Labs: Accuchecks 05/06/18 05/06/18 05/05/18 12:02 05:05 19:51 POC Glucose 95 88 132 H 05/05/18 16:40 POC Glucose 100 Phys Exam - Physical Examination Constitutional: NAD HEENT: PERRLA, oral pharynx no lesions Neck: no JVD, supple Respiratory: no wheezing, no rales, no rhonchi, clear to auscultation bilateral Cardiovascular: RRR, no significant murmur, no rub Gastrointestinal: soft, non-tender, no distention, positive bowel sounds Musculoskeletal: no edema BILAT BKA Neurological: non-focal Psychiatric: normal affect, A&O x 3 Skin: normal turgor Dx/Plan (1) Septic shock Code(s): A41.9 - SEPSIS, UNSPECIFIED ORGANISM; R65.21 - SEVERE SEPSIS WITH SEPTIC SHOCK Status: Resolved Comment: present on admit, improving, now. elevated WBC, lactate, fevers, presumed bacterialinfection and hypotensive depsite fluids on admit (2) Sepsis Code(s): A41.9 - SEPSIS, UNSPECIFIED ORGANISM Status: Resolved Qualifiers: Sepsis type: methicillin susceptible Staphylococcus aureus Qualified Code(s ): A41.01 - Sepsis due to Methicillin susceptible Staphylococcus aureus Plan: NO CLEAR SOURCE. HAS INDWELLING R SUBCLAVIAN HD CATHETER. BLOOD CULTURES NEGATIVE. ID FOLLOWING. ON VANC AND ZOSYN. STABLE NOW. WILL CONTINUE IV ABX TODAY. ANTICIPATE DISCHARGE TOMORROW. NEED DIRECTION FROM ID ON ANTIBIOSIS. (3) Diabetes mellitus type 2 in nonobese Code(s): E11.9 - TYPE 2 DIABETES MELLITUS WITHOUT COMPLICATIONS Status: Chronic Plan: WELL CONTROLLED. NO CHANGE. (4) HTN (hypertension) Code(s): I10 - ESSENTIAL (PRIMARY) HYPERTENSION Status: Chronic Qualifiers: Hypertension type: essential hypertension Plan: STABLE. NO CHANGE. CONTINUE CATAPRESS. - Plan * CONTINUE IV ABX TODAY. ID FOLLOW UP. ? DISCHARGE TOMORROW.
[2018-05-06] MEDS: Heparin 5,000 UNITS/ML VIAL SC SCH ×2 (15:44→20:49)
[2018-05-06] MEDS: Vancomycin HCl 750 MG in Sodium Chloride 0.9% 250 ML 250 ML IVPB SCH (18:05)
[2018-05-07] MEDS: Piperacillin/Tazobactam 2.25 GM in Sodium Chloride 0.9% 100 ML IVPB SCH ×2 (02:04→09:51)
[2018-05-07 07:20] VITALS: BP 142/76; TEMP 98.3
[2018-05-07] MEDS: Heparin 5,000 UNITS/ML VIAL SC SCH (09:51)
--- NOTE | 2018-05-07 10:28 | PRG ---
Patient Name: MARLIN ALLEN Date of service: 05/07/2018 Subjective: Patient was seen and examined at bedside and overnight events noted. Patient denies any shortness of breath or chest pain or palpitation. No history of nausea or vomiting or diarrhea or fever or chills or cramps. Objective: General: This is a well-built male in no apparent distress. Vital signs: Temperature 98.7, pulse 73, respiratory rate 18, blood pressure 109/64. HEENT: Atraumatic, normocephalic. Oral mucosa is moist. Neck: Supple. Cardiovascular: S1 S2 heard. Rate and rhythm regular. Respiratory: Clear to auscultation. Gastrointestinal: Abdomen is soft. Musculoskeletal: No tenderness. No edema. Dermatologic: No skin rash. Neurologic: Alert and awake and oriented X3. No focal neurologic deficits. Moving all the extremit ies. Psychiatric: Mood and affect normal. LABORATORY DATA: Not done today. ASSESSMENT AND PLAN: 1. End-stage renal disease, on hemodialysis Sunday, Sunday, and Sunday. 2. Hyperkalemia, better. Limit potassium. 3. Edema. 4. Hypertension, stable. 5. Anemia, monitor hemoglobin. Plan is to continue on dialysis as tolerated Sunday, Sunday and Sunday.
--- NOTE | 2018-05-08 12:48 | PQF ---
[facility] [employer] [facility],CHRIS RADER MD [id number] [phone] [id number] CLINICAL DOCUMENTATION CLARIFICATION FORM: POST DISCHARGE Addendum to original discharge summary date: ____ Late entry note date: __ Please exercise your independent, professional judgment in responding to the clarification form. Clinical indicators are provided on the bottom of this form for your review. SEPSIS WITH SEPTIC SHOCK ON ADMISSION CAN YOU DETERMINE IF THIS WAS A COMPLICATION OF A PREVIOUS PROCEDURE OR SURGERY? ID physician consult suspected. Please check appropriate box(s): [ ] __INFECTION DUE TO HEMODIALYSIS CATHETERIZATION (Condition) is a complication of current/recent surgery [ ] __INFECTION DUE TO HEMODIALYSIS CATHETERIZATION (Condition) is not a complication of current/recent surgery [ ] Other diagnosis [ x] Unable to determine the cause of Sepsis In addition, please specify: Present on Admission (POA): [ x] Yes [ ] No [ ] Unable to determine CLINICAL INDICATORS - SIGNS / SYMPTOMS / LABS CT / x-ray results Altered vitals Pain/ drainage from site Supporting labs Blood cultures-NO GROWTH IN 5 DAYS LINE CULTURES- NO GROWTH IN 5 DAYS ? infection RISK FACTORS Recent surgery. STATUS POST BELOW KNEE AMPUTATION Poor healing factors (advanced age / debility / obesity / chronic conditions) Recent use of antibiotics HX - MRSA TREATMENT: IV Antibiotics blood cultures and line cultures [facility] [employer] Fluids Surgical procedure/ Evaluation REPLACEMENT OF HEMODIALYSIS CATHETER (This form is maintained as a part of the permanent medical record) 2014 [employer]. All Rights Reserved Jessica [email or web address] [phone] MTDD
--- NOTE | 2018-05-08 14:03 | DIS ---
DATE OF ADMISSION: 05/02/2018 DATE OF DISCHARGE: 05/08/2018 DISCHARGE DIAGNOSES: 1. Sepsis of undetermined source. 2. History of methicillin sensitive Staph aureus infection 3. History of end-stage renal disease, on hemodialysis. 4. Diabetes mellitus. 5. Hypertension. HISTORY: This patient is a 63-year-old male with a history of dialysis and complications resulting i n end-stage renal disease and dialysis. The patient had a right tunneled subclavian catheter as he w as having some difficulty establishing a fistula otherwise. Patient had recently been in the [facility] with an infection in his foot growing methicillin-sensitive staph. Ultimately, the patient require d amputation and was discharged to home. He presented in followup with fever and chills. [facility], he was tachycardic with a heart rate of 120s and while there developed some hypote nsion requiring fluid resuscitation. HOSPITAL COURSE: The patient was admitted to the hospital. He was diagnosed with sepsis and started on broad spectrum antibiotics. He had consultations by Pulmonary Critical Care, Nephrology and Infe ctious Disease. The patient had no specific evidence of an infectious source. There was some concer n that it might be related to his tunneled catheter. However, the patient's blood cultures remain ne gative throughout his admission. Once the patient's vital signs and stabilized and there were no spe cific sources of infection identified. The patient was felt to be stable for discharge. He will con tinue to have outpatient antibiotics with vancomycin given at the time of his dialysis. DISCHARGE PLAN: The patient is discharged to home. He will be on a diabetic renal diet. His activi ty level is as tolerated. DISCHARGE MEDICATIONS: Include Colace 100 mg b.i.d., Procrit 10,000 units IV push on Sunday, , Sunday. Heparin 5000 units twice weekly, calcium acetate 1334 mg orally t.i.d. with meals, metop rolol 25 mg b.i.d., tramadol 50 mg t.i.d. and vancomycin 1.2 grams IV will be given with his hemodial ysis for a total of 30 days. He is to follow up with his primary care provider as well as his nephro logist. He should return to the emergency department should he have any problems prior to that time.
--- NOTE | 2018-05-18 15:48 | EKG ---
Test Reason : Blood Pressure : / mmHG Vent. Rate : 126 BPM Atrial Rate : 126 BPM P-R Int : 150 ms QRS Dur : 074 ms QT Int : 294 ms P-R-T Axes : 099 -18 071 degrees QTc Int : 425 ms Sinus tachycardia Otherwise normal ECG Confirmed by ZABRINA DE LA CRUZ, EVAN ([id number]), supervising film or videotape editor DAJA MALCOLM ([id number]) on 05/18/2018 3:48:39 PM Referred By: Confirmed By:EVAN GERBER MD
== END 2018-05-07 13:41 | disposition home or self-care (01) | DRG 871 ==
LOC: ERS 14:00 → CCU 17:28 → 2NO 23:03 → CCU 23:55 → T4-A 05-03 09:50
PROVIDERS: ADMIT Internal Medicine; ATTEND Internal Medicine
PROC: 02HV33Z Insertion of Infusion Device into Superior Vena Cava, Percutaneous Approach (ICD-10-PCS; principal; 2018-05-02)
PROC: B5181ZA Fluoroscopy of Superior Vena Cava using Low Osmolar Contrast, Guidance (ICD-10-PCS; 2018-05-02)
PROC: 3E043XZ Introduction of Vasopressor into Central Vein, Percutaneous Approach (ICD-10-PCS; 2018-05-02)
PROC: 5A1D70Z Performance of Urinary Filtration, Intermittent, Less than 6 Hours Per Day (ICD-10-PCS; 2018-05-02)
PROC: 02HV33Z Insertion of Infusion Device into Superior Vena Cava, Percutaneous Approach (ICD-10-PCS; 2018-05-02)
DX: A41.9 Sepsis, unspecified organism (principal); R65.21 Severe sepsis with septic shock; N18.6 End stage renal disease; I50.23 Acute on chronic systolic (congestive) heart failure; E87.2 Acidosis; E87.1 Hypo-osmolality and hyponatremia; I13.2 Hypertensive heart and chronic kidney disease with heart failure and with stage 5 chronic kidney disease, or end stage renal disease; E87.5 Hyperkalemia; Z99.2 Dependence on renal dialysis; E11.22 Type 2 diabetes mellitus with diabetic chronic kidney disease; Z79.4 Long term (current) use of insulin; E78.5 Hyperlipidemia, unspecified; D63.1 Anemia in chronic kidney disease; F32.9 Major depressive disorder, single episode, unspecified; R60.9 Edema, unspecified; E11.51 Type 2 diabetes mellitus with diabetic peripheral angiopathy without gangrene; E78.00 Pure hypercholesterolemia, unspecified; Z93.3 Colostomy status; Z89.512 Acquired absence of left leg below knee; Z89.511 Acquired absence of right leg below knee; Z86.14 Personal history of Methicillin resistant Staphylococcus aureus infection; Z91.15 Patient's noncompliance with renal dialysis; I25.10 Atherosclerotic heart disease of native coronary artery without angina pectoris; Z95.5 Presence of coronary angioplasty implant and graft; Z95.810 Presence of automatic (implantable) cardiac defibrillator; R94.5 Abnormal results of liver function studies
CPT/HCPCS: 36415; 36416; 71045; 80053; 80202; 82553; 83605; 84484; 85025; 87040; 87340; 90935; 93005; 96365; 96366; 96374; 96375; G0257; G8978-GP-CL; G8979-GP-CJ; G8987-GO-CJ; G8988-GO-CI; J0692; J1644; J1720; J2543; J3370; J7050

== ENCOUNTER 2018-06-04 10:05 | Day surgery (SDC) | payer MEDICARE ==
[2018-06-04 10:47] LABS: #Eosinphils 0.3 thou/uL (0.0-0.7); #Lymphocytes 2.3 thou/uL (1.20-3.40); #Monocytes 0.9 thou/uL (0.11-0.59); #Neutrophils 4.2 thou/uL (1.40-6.50); %Basophils 0.4 % (0.0-1.0); %Eosinophils 4.1 % (0.0-10.0); %Lymphocytes 29.4 % (21.0-51.0); %Neutrophils 54.1 % (42.0-75.0); Hemoglobin 12.9 g/dL (14.0-18.0); Mean Corpuscular HGB CONC 32.6 g/dL (32.0-36.0); Mean Corpuscular Hemoglobin 28.9 pg (27.0-31.0); Mean Corpuscular Volume 88.6 fL (78.0-98.0); Mean Platelet Volume 7.7 fL (7.4-10.4); Platelet Count 248 thou/uL (130-400); RBC Distribution Width 15.1 % (11.5-14.5); Red Blood Cell (RBC) Count 4.46 mill/uL (4.70-6.10); White Blood Cell (WBC) Count 7.7 thou/uL (4.8-10.8)
[2018-06-04] MEDS ORDERED: Lidocaine 1% (PF) 30 ML VIAL ONE (10:52)
[2018-06-04] MEDS ORDERED: Fentanyl 100 MCG/2 ML VIAL ONE ×3 (10:52→14:26)
[2018-06-04] MEDS ORDERED: Midazolam HCl 2 mg/2 ml Vial ONE (10:52)
[2018-06-04 11:09] LABS: Anion Gap 19 mmol/L (10-20); BUN (Urea Nitrogen) 42 mg/dL (8.4-25.7); Calc. Creatinine Clearance 0 mL/min (70-130); Calcium 9.7 mg/dL (7.8-10.44); Carbon Dioxide 24 mmol/L (23-31); Chloride 98 mmol/L (98-107); Estimated GFR-MDRD 8; Glucose 82 mg/dL (80-115); Potassium 5.9 mmol/L (3.5-5.1); Sodium 135 mmol/L (136-145)
[2018-06-04] MEDS ORDERED: CEFAZOLIN/Water 2 GM/20 ML SYRINGE ONE (11:10)
[2018-06-04] MEDS ORDERED: Protamine Sulfate 50 MG/5 ML VIAL ONE (12:32)
[2018-06-04] MEDS ORDERED: Bupivacaine/Epinephrine 0.25% 30 ML VIAL ONE (12:32)
[2018-06-04] MEDS ORDERED: Heparin 5,000 UNITS/ML VIAL ONE (12:32)
[2018-06-04] MEDS ORDERED: Ioversol 68 % 50 ML VIAL ONE (12:33)
[2018-06-04] MEDS ORDERED: Bupivacaine HCl 0.5%/Epinephrine 1:200,000/PF 30 ml Vial ONE (12:34)
[2018-06-04] MEDS ORDERED: Lidocaine 2% 10 ML INJ ONE (12:41)
[2018-06-04] MEDS ORDERED: Sodium Chloride 0.9% 30 ML ONE (12:41)
[2018-06-04] MEDS ORDERED: Heparin 10,000 UNITS/1 ML VIAL ONE (12:41)
[2018-06-04] MEDS ORDERED: Lidocaine 1% PF 5 ML VIAL ONE (13:27)
[2018-06-04] MEDS ORDERED: PHENYLEPHRINE-NS 100 MCG/ML 10 ML SYRINGE ONE ×2 (13:27→14:26)
[2018-06-04] MEDS ORDERED: PROPOFOL 200 MG/20 ML VIAL ONE (13:27)
[2018-06-04] MEDS ORDERED: Heparin 10,000 UNITS/ 10 ML VIAL ONE (16:42)
--- NOTE | 2018-06-04 17:08 | RAD ---
CHEST 1 VIEW: Date: 06/04/18 HISTORY: Postop. COMPARISON: Radiograph from 05/02/18. FINDINGS: Dialysis catheter is in place with the tips in superior SVC. No pneumothorax is appreciated. IMPRESSION: Uncomplicated placement of a dialysis catheter, although the tips appear to be in the superior SVC an d not within the right atrium or cavoatrial junction. POS: [facility]
--- NOTE | 2018-06-07 19:50 | PDOC.OP ---
Operative Note - Operative Note Operative Note: PROCEDURE: Left brachiobasilic AV fistula SURGEON: Elizabeth Ruiz M.D. DATE OF PROCEDURE: 06/04/2018 PREOPERATIVE DIAGNOSIS: Renal failure POSTOPERATIVE DIAGNOSIS: Renal failure HISTORY: Patient with failed left upper arm cephalic fistula due to a long segment stenosis. Recommendation was made to proceed with a left basilic fistula , with plans to return to the OR later date for transposition. PROCEDURE IN DETAIL: After informed consent was obtained and appropriate preoperative antibiotics administered, the patient was taken to the operating room and placed in the supine position and monitored anesthesia care was administered. A preoperative block had been performed by Anesthesia and the adequacy of block was confirmed. The arm was prepped and draped in a standard sterile fashion and an incision made overlying the left basilic vein which was located using ultrasound. Dissection was carried out to the basilic vein, which appeared to be of adequate quality and caliber to support a fistula. This was dissected free circumferentially, marked for orientation, and ligated and divided distally, and spatulated with Rincon scissors. This was serially interrogated with cardiac dilators and easily accepted up to a 4 mm cardiac dilator. This was flushed with heparinized saline and clamped with a bulldog clamp. A second incision was made over the brachial artery was then dissected free and found to be of adequate quality and caliber to support a fistula. The basilic vein was tunneled over to the brachial artery incision taking care to maintain correct orientation of the vein. Heparin was administered systemically and allowed to circulate for 3 minutes following which the brachial artery was clamped proximally and distally. An anterior arteriotomy was created with an 11 blade scalpel and extended with Rincon scissors. An end-to-side anastomosis created with a running 6-0 Prolene suture with excellent technical result. Prior to tying down the anastomosis, the inflow was released to flush the anastomosis. Flow was established first through the fistula and then through the distal brachial artery. Hemostasis at the site was confirmed, and an excellent thrill was felt in the basilic vein outflow and an excellent bruit was heard with Doppler as well up to the axilla. Hemostasis at the operative site was again confirmed. The incisions were closed with a running 3-0 subcutaneous and running 4-0 subcuticular Monocryl sutures. Dermabond dressings were placed and the patient was taken to the recovery room in good condition. Estimated blood loss was minimal. There were no complications. There were no specimens.
== END 2018-06-04 17:20 | disposition home or self-care (01) ==
LOC: SDC 10:05
PROVIDERS: ATTEND Surgery
PROC: 03180ZD Bypass Left Brachial Artery to Upper Arm Vein, Open Approach (ICD-10-PCS; principal; 2018-06-04)
DX: I12.0 Hypertensive chronic kidney disease with stage 5 chronic kidney disease or end stage renal disease (principal); E11.22 Type 2 diabetes mellitus with diabetic chronic kidney disease; N18.6 End stage renal disease; L89.322 Pressure ulcer of left buttock, stage 2; E11.622 Type 2 diabetes mellitus with other skin ulcer; Z79.84 Long term (current) use of oral hypoglycemic drugs; Z79.899 Other long term (current) drug therapy; Z99.2 Dependence on renal dialysis
CPT/HCPCS: 36821; 71045; 80048; 85025; C1752; C1769; 36415; A4216; J0670; J1644; J2001; J2250; J2704; J2720; J3010; Q9967

== ENCOUNTER 2018-06-10 12:26 | Emergency (ER) | payer MEDICARE ==
[2018-06-10] MEDS ORDERED: Activase 2 MG VIAL CATH SCH (12:45)
== END 2018-06-10 16:25 | disposition home or self-care (01) ==
LOC: ERS 12:26
DX: E11.22 Type 2 diabetes mellitus with diabetic chronic kidney disease (principal); N18.6 End stage renal disease; I50.9 Heart failure, unspecified; Z99.2 Dependence on renal dialysis
CPT/HCPCS: 84132; 93005; 99284; J2997

== ENCOUNTER 2018-08-21 09:04 | Observation (INO) | payer MEDICARE ==
[2018-08-20 10:31] VITALS: BMI 29.7
[2018-08-21] MEDS ORDERED: CEFAZOLIN/Water 2 GM/20 ML SYRINGE ONE (11:05)
[2018-08-21] MEDS ORDERED: Midazolam HCl 2 mg/2 ml Vial ONE (11:05)
[2018-08-21 11:11] LABS: #Basophils 0.1 thou/uL (0.0-0.2); #Eosinphils 0.3 thou/uL (0.0-0.7); #Lymphocytes 1.8 thou/uL (1.20-3.40); #Monocytes 0.9 thou/uL (0.11-0.59); #Neutrophils 5.7 thou/uL (1.40-6.50); %Basophils 0.6 % (0.0-1.0); %Eosinophils 2.9 % (0.0-10.0); %Lymphocytes 20.9 % (21.0-51.0); %Monocytes 10.5 % (0.0-10.0); %Neutrophils 65.1 % (42.0-75.0); Hemoglobin 14.2 g/dL (14.0-18.0); Mean Corpuscular HGB CONC 32.3 g/dL (32.0-36.0); Mean Corpuscular Hemoglobin 29.2 pg (27.0-31.0); Mean Corpuscular Volume 90.5 fL (78.0-98.0); Mean Platelet Volume 8.2 fL (7.4-10.4); Platelet Count 267 thou/uL (130-400); RBC Distribution Width 15.9 % (11.5-14.5); Red Blood Cell (RBC) Count 4.86 mill/uL (4.70-6.10); White Blood Cell (WBC) Count 8.7 thou/uL (4.8-10.8)
[2018-08-21] MEDS ORDERED: Heparin 1,000 UNITS/ML VIAL ONE (11:11)
[2018-08-21 11:28] LABS: Anion Gap 20 mmol/L (10-20); BUN (Urea Nitrogen) 55 mg/dL (8.4-25.7); Calc. Creatinine Clearance 10 mL/min (70-130); Calcium 9.7 mg/dL (7.8-10.44); Carbon Dioxide 19 mmol/L (23-31); Chloride 97 mmol/L (98-107); Estimated GFR-MDRD 6; Glucose 135 mg/dL (80-115); Potassium 6.1 mmol/L (3.5-5.1); Sodium 130 mmol/L (136-145)
[2018-08-21] MEDS ORDERED: Bupivacaine/Epinephrine 0.25% 30 ML VIAL ONE (11:38)
[2018-08-21] MEDS ORDERED: Protamine Sulfate 50 MG/5 ML VIAL ONE (11:38)
[2018-08-21] MEDS ORDERED: Ioversol 68 % 50 ML VIAL ONE (11:38)
[2018-08-21] MEDS ORDERED: Heparin 5,000 UNITS/ML VIAL ONE (11:38)
[2018-08-21] MEDS ORDERED: Lidocaine 2% PF Inj 2 ML VIAL ONE (11:38)
[2018-08-21] MEDS ORDERED: Propofol 500 MG/50 ML VIAL ONE (12:19)
[2018-08-21] MEDS ORDERED: Heparin 10,000 UNITS/ 10 ML VIAL ONE ×2 (16:07→17:33)
[2018-08-21] MEDS ORDERED: Bupivacaine HCl 0.5%/Epinephrine 1:200,000/PF 30 ml Vial ONE (17:06)
[2018-08-21] MEDS ORDERED: PROPOFOL 200 MG/20 ML VIAL ONE (17:33)
[2018-08-21] MEDS ORDERED: PHENYLEPHRINE-NS 100 MCG/ML 10 ML SYRINGE ONE (17:33)
[2018-08-21] MEDS ORDERED: traMADol HCl 50 MG TAB PO PRN (18:33)
[2018-08-21 19:11] LABS: Anion Gap 20 mmol/L (10-20); BUN (Urea Nitrogen) 59 mg/dL (8.4-25.7); Calc. Creatinine Clearance 10 mL/min (70-130); Calcium 9.1 mg/dL (7.8-10.44); Carbon Dioxide 17 mmol/L (23-31); Chloride 95 mmol/L (98-107); Estimated GFR-MDRD 5; Glucose 231 mg/dL (80-115); Potassium 5.4 mmol/L (3.5-5.1); Sodium 127 mmol/L (136-145)
[2018-08-21] MEDS ORDERED: Dextrose 50% Abboject 50 ML SYRINGE IVP PRN (20:29)
[2018-08-21] MEDS ORDERED: Dextrose 5% in Water 1,000 ML IV PRN (20:29)
[2018-08-21] MEDS ORDERED: Insulin Regular 300 UNITS/3 ML VIAL SC PRN (20:29)
[2018-08-21] MEDS ORDERED: Sterile Water 10 ML VIAL IVP SCH (20:59)
[2018-08-21] MEDS ORDERED: Activase 2 MG VIAL CATH SCH (21:00)
[2018-08-22] MEDS: Fludrocortisone Acetate 0.1 MG TAB PO SCH ×3 (00:41→20:53)
[2018-08-22] MEDS: Metoclopramide HCl 10 MG TAB PO SCH ×3 (00:41→20:51)
--- NOTE | 2018-08-22 00:54 | CON ---
DATE OF CONSULTATION: 08/21/2018 CONSULTING PHYSICIAN: Dr. Ruiz. REASON FOR CONSULTATION: End-stage renal disease evaluation and care. REASON FOR ADMISSION: Elective surgery for fistula placement. HISTORY OF PRESENT ILLNESS: A 63-year-old male with history of end-stage renal disease on hemodialys is Sunday, Sunday, Sunday; hypertension; diabetes; hyperlipidemia; anemia; anxiety; depression; pe ripheral vascular disease, who came to the hospital for elective fistula placement. Patient is again due for dialysis today, gets dialysis on Sunday, Sunday, and Sunday. Missed dial ysis today and Nephrology consulted. Patient denies any shortness of breath, chest pain. No nausea, vomiting, no fever or chills. No labs are available. PAST MEDICAL HISTORY: Positive of hypertension, type 2 diabetes, hyperlipidemia, end-stage renal dis ease, anemia, anxiety, depression, peripheral vascular disease, secondary hyperparathyroidism, Fourni er's gangrene. PAST SURGICAL HISTORY: Dialysis access placement, bilateral below-knee amputation, colostomy. HOME MEDICATIONS: Include tramadol, Veltassa, metoclopramide, Glucotrol, Florinef. ALLERGIES: No known drug allergies. SOCIAL HISTORY: No smoking, alcohol, or illicit drug abuse. FAMILY HISTORY: No history of kidney disease. REVIEW OF SYSTEMS: The following complete review of systems was negative, unless otherwise mentioned in the HPI or below: Constitutional: Weight loss or gain, ability to conduct usual activities. Sk in: Rash, itching. Eyes: Double vision, pain. ENT/Mouth: Nose bleeding, neck stiffness, pain, te nderness. Cardiovascular: Palpitations, dyspnea on exertion, orthopnea. Respiratory: Shortness of breath, wheezing, cough, hemoptysis, fever, or night sweats. Gastrointestinal: Poor appetite, abdo el pain, heartburn, nausea, vomiting, constipation, or diarrhea. Genitourinary: Urgency, frequen cy, dysuria, nocturia. Musculoskeletal: Pain, swelling. Neurologic/Psychiatric: Anxiety, depressi on. Allergy/Immunologic: Skin rash, bleeding tendency. PHYSICAL EXAMINATION: GENERAL: This is a well-built male in no apparent distress. VITAL SIGNS: Temperature 98.1, pulse , respirations 16, blood pressure . HEENT: Atraumatic, normocephalic. Oral mucosa is moist. NECK: Supple, no masses. CARDIOVASCULAR: S1, S2 heard. Rate and rhythm regular. RESPIRATORY: Clear. GASTROINTESTINAL: Abdomen is soft. MUSCULOSKELETAL: 1+ edema. DERMATOLOGIC: No skin rash. NEUROLOGIC: Alert, awake. PSYCHIATRIC: Mood and affect. LABORATORY DATA: Hemoglobin is 14.2. Potassium is 5.4, BUN is 59, creatinine is 10.03. Sodium 127. ASSESSMENT AND PLAN: 1. End-stage renal disease. We will have dialysis today. Dialysis nurse notified, patient was seen during dialysis, but he is having access issues. We will have TPA in the dialysis. 2. Hyponatremia, limit fluid intake. 3. Hyperkalemia. We will have dialysis. 4. Metabolic acidosis. 5. Dialysis access per surgeon. 6. Hypertension, stable. Plan is to have dialysis if tolerated. Patient is having access issues. We will continue to follow. Thank you for the consult.
[2018-08-22] MEDS: traMADol HCl 50 MG TAB PO PRN ×3 (05:32→15:30)
[2018-08-22] MEDS: glipiZIDE 5 MG TAB PO SCH ×3 (05:51→19:02)
[2018-08-22 06:15] LABS: Anion Gap 18 mmol/L (10-20); BUN (Urea Nitrogen) 39 mg/dL (8.4-25.7); Calc. Creatinine Clearance 13 mL/min (70-130); Calcium 8.8 mg/dL (7.8-10.44); Carbon Dioxide 20 mmol/L (23-31); Chloride 100 mmol/L (98-107); Estimated GFR-MDRD 7; Glucose 107 mg/dL (80-115); Potassium 5.7 mmol/L (3.5-5.1); Sodium 132 mmol/L (136-145)
[2018-08-22] MEDS ORDERED: Heparin 10,000 UNITS/ 10 ML VIAL ONE (08:21)
[2018-08-22] MEDS ORDERED: VELTASSA PO SCH (09:00)
--- NOTE | 2018-08-22 09:56 | PRG ---
DATE OF SERVICE: 08/22/2018 SUBJECTIVE: Patient was seen and examined at bedside and overnight events noted. Patient denies any shortness of breath or chest pain or palpitation. No history of nausea or vomiting or diarrhea or f ever or chills or cramps. OBJECTIVE: GENERAL: This is a well-built male in no apparent distress. VITAL SIGNS: Temperature 97.9, pulse 94, respiratory rate 18, blood pressure 116/72. HEENT: Atraumatic, normocephalic, oral mucosa is moist. NECK: Supple. CARDIOVASCULAR: S1, S2 heard, rate and rhythm regular. RESPIRATORY: Clear to auscultation. GASTROINTESTINAL: Abdomen is soft. MUSCULOSKELETAL: No tenderness, no edema. DERMATOLOGIC: No skin rash. NEUROLOGIC: Alert and awake and oriented x3. No focal neurologic deficits. Moving all the extremit ies. PSYCHIATRIC: Mood and affect normal. LABORATORY DATA: Potassium is 5.7, BUN 39, creatinine 7.6. ASSESSMENT AND PLAN: 1. End-stage renal disease. We will have dialysis today for 2 hours, had dialysis only for 2 hours yesterday. 2. Hyperkalemia. Kayexalate dose x1 today. We will have dialysis also. 3. Hyponatremia. Limit fluid intake. 4. Metabolic acidosis. 5. Hypertension. Plan is to have extra dialysis for 2 hours today. Patient was able to tolerate dialysis as tolerated .
[2018-08-23] MEDS: traMADol HCl 50 MG TAB PO PRN ×2 (01:55→11:20)
[2018-08-23] MEDS: Metoclopramide HCl 10 MG TAB PO SCH (11:22)
[2018-08-23] MEDS: Fludrocortisone Acetate 0.1 MG TAB PO SCH (11:22)
[2018-08-23] MEDS: glipiZIDE 5 MG TAB PO SCH (11:22)
[2018-08-23 13:07] VITALS: BP 121/81; TEMP 98.8
--- NOTE | 2018-08-23 15:23 | PRG ---
Date of service: 08/23/2018. Subjective: Patient was seen and examined at bedside and overnight events noted. Patient denies any shortness of breath or chest pain or palpitation. No history of nausea or vomiting or diarrhea or fever or chills or cramps. Objective: General: This is a well-built male, in no acute distress Vital signs : Temperature 98.8. Pulse . Respiratory rate 18. Blood pressure 121/81. HEENT: Atraumatic, normocephalic, Oral mucosa is moist Neck: Supple Cardiovascular: S1S2 heard, Rate and rhythm regular Respiratory: Clear to auscultation Gastrointestinal: Abdomen is soft Musculoskeletal : No tenderness, No edema Dermatologic : No skin rash Neurologic: Alert and awake and oriented X3, No focal neurologic deficits. Moving all the extremities . Psychiatric: Mood and affect normal Laboratory data: Not done. Assessment and Plan: 1. End-stage renal disease. Continue on dialysis Sunday, Sunday, and Sunday. 2. Hyperkalemia. Limit potassium. 3. Hyponatremia. 4. Metabolic acidosis. 5. . Continue dialysis Sunday, Sunday, Sunday.
--- NOTE | 2018-08-23 17:52 | PDOC.OP ---
Operative Note - Operative Note Operative Note: PROCEDURE: Left AV graft DATE OF PROCEDURE: 08/21/28 SURGEON: Elizabeth Ruiz M.D. PREOPERATIVE DIAGNOSES: End-stage renal failure with basilic vein fistula POSTOPERATIVE DIAGNOSIS: End-stage renal failure with basilic vein fistula with stenosis HISTORY: Patient has end-stage renal failure and peripheral vascular disease. He underwent a left upper arm cephalic fistula which developed a stenosis and failed after attempted revision. He had a basilic vein fistula placed which has a good thrill at the antecubital fossa and appears patent on ultrasound and requires transposition. FINDINGS: Dilated and arterialized proximal basilic vein fistula with significant stenosis several centimeters above the anastomosis. Graft placed from basilic vein stump to axillary vein. PROCEDURE IN DETAIL: After informed consent was obtained and appropriate preoperative antibiotics Mr. the patient was taken to the operating room he was placed in supine position and anesthesia was administered. A block it been placed preoperatively and adequacy of block was confirmed. He was prepped and draped in standard sterile fashion and an incision made over the proximal basilic fistula. This was well dilated and arterialized, but as dissection was carried up past the elbow a significant stenosis was encountered. The vein appeared sclerotic and unusable for access beyond this point. The decision was made to place a AV graft, with plans to use the basilic stump as the inflow rather than dissecting down around the previously operated brachial artery. The patient's block in the axillary area was incomplete so additional local anesthesia was infused and an incision made over the axillary pulse. Dissection was carried down to the axillary vein which was dissected free and circumferentially and found to be of adequate caliber and quality to support a graft. A 12 mm Bekah with tunneler was brought up from the antecubital to the axillary incision and the end switched out to a 6 mm tip. The tapered end of the 4-7 mm tapered PTFE graft was secured to the tunneler and brought back down to the antecubital fossa taking care not to twist or kink the graft. The axillary vein was occluded proximally and distally with vessel loops and an anterior venotomy created with an 11 blade and extended with Rincon scissors. The vein was flushed proximally and distally with heparinized saline and reclamped and the graft was cut at an angle. An end-to-side anastomosis was created with a 6-0 Prolene suture with excellent technical result. Before tying down the anastomosis, the graft was flushed with heparinized saline and clamped at the antecubital fossa. Flow was then restored through the vein by removing the vessel loops. There was some minor suture hole oozing but no bleeding from the anastomosis. Ray-Jacinto sponge was placed to the wound and attention turned to the antecubital fossa. Heparin was administered and allowed to circulate for 3 minutes following which the basilic vein stump was clamped proximally and ligated and divided distally. The tapered end of the graft was cut at an angle and the stump was spatulated with an anterior venotomy and an end-to-end anastomosis was created with a 6-0 Prolene suture with excellent technical result. Prior to tying down the anastomosis the inflow was released flushing the anastomosis. The anastomosis was then secured and the clamp on the graft was removed establishing flow through the graft. There was a palpable thrill through the basilic stump and excellent flow by Doppler along the length of the graft and in the axillary vein. There were some minor suture hole oozing which resolved with placement of Surgicel and direct pressure. The axillary wound was examined and the Ray-Jacinto sponge removed. Hemostasis was verified and the wound was closed with a running 3-0 subcutaneous and a 4-0 subcuticular Monocryl suture. The antecubital wound was then examined and hemostasis verified. The subcutaneous tissues were closed with a 3-0 Monocryl suture and the skin was closed with a 4-0 subcuticular Monocryl suture. Dermabond dressings were placed at both locations and the arm was wrapped with an Luis wrap. The patient was taken to recovery in good condition. Estimated blood loss was minimal. There were no complications. There were no specimens.
== END 2018-08-23 11:56 | disposition home or self-care (01) ==
LOC: SDC 09:04 → SJJU 17:10
PROVIDERS: ADMIT Surgery; ATTEND Surgery
PROC: 03160JD Bypass Left Axillary Artery to Upper Arm Vein with Synthetic Substitute, Open Approach (ICD-10-PCS; principal; 2018-08-21)
DX: T82.858A Stenosis of other vascular prosthetic devices, implants and grafts, initial encounter (principal); I12.0 Hypertensive chronic kidney disease with stage 5 chronic kidney disease or end stage renal disease; E11.22 Type 2 diabetes mellitus with diabetic chronic kidney disease; N18.6 End stage renal disease; E78.5 Hyperlipidemia, unspecified; D63.1 Anemia in chronic kidney disease; F41.9 Anxiety disorder, unspecified; F32.9 Major depressive disorder, single episode, unspecified; E11.51 Type 2 diabetes mellitus with diabetic peripheral angiopathy without gangrene; N25.81 Secondary hyperparathyroidism of renal origin; E87.1 Hypo-osmolality and hyponatremia; E87.6 Hypokalemia; E87.2 Acidosis; Z79.84 Long term (current) use of oral hypoglycemic drugs; Z79.899 Other long term (current) drug therapy; Z99.2 Dependence on renal dialysis
CPT/HCPCS: 36832; 80048 ×3; 82962 ×2; 85025; G0378; J2997; L8670; 36415; 36416; 90935; A4216; G0257; J0670; J1644; J1815; J2250; J2704; J2720; Q9967

== ENCOUNTER 2018-08-29 08:58 | Day surgery (SDC) | payer MEDICARE ==
[2018-08-28 13:42] VITALS: BMI 33.3
[2018-08-29] MEDS ORDERED: CEFAZOLIN/Water 2 GM/20 ML SYRINGE ONE (09:50)
[2018-08-29 09:59] LABS: #Basophils 0.1 thou/uL (0.0-0.2); #Eosinphils 0.2 thou/uL (0.0-0.7); #Lymphocytes 1.6 thou/uL (1.20-3.40); #Neutrophils 6.6 thou/uL (1.40-6.50); %Basophils 0.8 % (0.0-1.0); %Eosinophils 2.3 % (0.0-10.0); %Lymphocytes 16.6 % (21.0-51.0); %Monocytes 10.8 % (0.0-10.0); %Neutrophils 69.5 % (42.0-75.0); Hemoglobin 13.5 g/dL (14.0-18.0); Mean Corpuscular HGB CONC 30.6 g/dL (32.0-36.0); Mean Corpuscular Hemoglobin 28.1 pg (27.0-31.0); Mean Corpuscular Volume 91.8 fL (78.0-98.0); Mean Platelet Volume 8.1 fL (7.4-10.4); Platelet Count 323 thou/uL (130-400); RBC Distribution Width 16.1 % (11.5-14.5); Red Blood Cell (RBC) Count 4.82 mill/uL (4.70-6.10); White Blood Cell (WBC) Count 9.5 thou/uL (4.8-10.8)
[2018-08-29 10:49] LABS: Anion Gap 17 mmol/L (10-20); BUN (Urea Nitrogen) 41 mg/dL (8.4-25.7); Calc. Creatinine Clearance 11 mL/min (70-130); Calcium 9.1 mg/dL (7.8-10.44); Carbon Dioxide 22 mmol/L (23-31); Chloride 98 mmol/L (98-107); Estimated GFR-MDRD 6; Glucose 155 mg/dL (80-115); Potassium 4.8 mmol/L (3.5-5.1); Sodium 132 mmol/L (136-145)
[2018-08-29] MEDS ORDERED: PHENYLEPHRINE-NS 100 MCG/ML 10 ML SYRINGE ONE (11:54)
[2018-08-29] MEDS ORDERED: PROPOFOL 200 MG/20 ML VIAL ONE (11:54)
[2018-08-29] MEDS ORDERED: Bupivacaine/Epinephrine 0.25% 30 ML VIAL ONE (12:34)
[2018-08-29] MEDS ORDERED: Sodium Chloride 0.9% 10 ML ONE (12:34)
[2018-08-29] MEDS ORDERED: Heparin 10,000 UNITS/1 ML VIAL ONE (12:34)
[2018-08-29] MEDS ORDERED: Lidocaine 2% PF Inj 2 ML VIAL ONE (12:34)
--- NOTE | 2018-08-29 16:37 | RAD ---
CHEST ONE VIEW PORTABLE: 08/29/18 HISTORY: 63-year-old male with post placement of dialysis access catheter. Dialysis access catheter is placed on the right side. No evidence for pneumothorax or other acute process. The lungs are clear. IMPRESSION: Right dialysis vascular access catheter placed without pneumo thorax or other complication. Otherwis e stable changes bilaterally. Atherosclerosis of the aorta. POS: [facility]
--- NOTE | 2018-09-02 12:50 | PDOC.OP ---
Operative Note - Operative Note Operative Note: PROCEDURE: Replacement of right internal jugular tunneled hemodialysis catheter with fluoroscopic guidance. SURGEON: Elizabeth Ruiz M.D. DATE OF PROCEDURE: PREOPERATIVE DIAGNOSIS: End-stage renal failure with poorly functioning dialysis catheter. POSTOPERATIVE DIAGNOSIS: End-stage renal failure. HISTORY: Patient with end-stage renal failure. He has a left AV graft which is maturing but not yet ready to access. His tunneled dialysis catheter has not been functioning well and he has only been able to a partial dialysis. 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 PROCEDURE: After informed consent was obtained and appropriate preoperative antibiotics were administered, the patient was taken to the Operating Room, placed in the supine position and monitored anesthesia care was administered. The neck and chest were prepped and draped in a standard sterile fashion and the patient placed in Trendelenburg position. Dissection was carried down to the previous catheter at the right IJ access site. Local anesthesia was infused to the skin and subcutaneous tissues of the right neck and chest. An infraclavicular incision was made and a catheter tunneled from the infraclavicular to the right IJ access site. The right IJ catheter was drawn up into the wound and clamped and divided between clamps. A wire was then threaded through the distal part of the catheter which was removed. A dilator and sheath were placed over the wire and the dilator and wire removed leaving the sheath in place. The new catheter was tunneled through the sheath which was then split and removed leaving the catheter in place. This was confirmed by fluoroscopy to be in good position in the superior vena cava with no kinking of the course of the catheter. Both ports easily aspirated dark venous nonpulsatile blood and easily flushed without resistance. Heparin was instilled to the quantity specified on the hub, and the hub was secured to the skin with 3-0 nylon sutures. The skin incision at the neck was closed in two layers with 4-0 Monocryl suture and Dermabond dressings were placed. The skin at the exit site was snugged up around the catheter with 4-0 Monocryl suture and Dermabond was placed there as well. Fluoroscopy confirmed good position of the catheter. Once the Dermabond was dry, a Biopatch and Tegaderm dressing was placed at the exit site. Local anesthesia was infused at the old catheter exit site and the cuff was dissected free of the surrounding soft tissues and the external portion of the old catheter removed. A gauze and Tegaderm dressing was placed at this site. The patient was taken to Recovery in good condition. Estimated blood loss was minimal. There were no complications. There were no specimens.
== END 2018-08-29 16:00 | disposition home or self-care (01) ==
LOC: SDC 08:58
PROVIDERS: ATTEND Surgery
PROC: 0J2SXYZ Change Other Device in Head and Neck Subcutaneous Tissue and Fascia, External Approach (ICD-10-PCS; principal; 2018-08-29)
DX: T82.49XA Other complication of vascular dialysis catheter, initial encounter (principal); I12.0 Hypertensive chronic kidney disease with stage 5 chronic kidney disease or end stage renal disease; E11.22 Type 2 diabetes mellitus with diabetic chronic kidney disease; N18.6 End stage renal disease; E11.51 Type 2 diabetes mellitus with diabetic peripheral angiopathy without gangrene; Z79.84 Long term (current) use of oral hypoglycemic drugs; Z79.899 Other long term (current) drug therapy; Z99.2 Dependence on renal dialysis; Z93.3 Colostomy status
CPT/HCPCS: 36581; 71045; 80048; 85025; C1752; C1769; J1644; J2704

== ENCOUNTER 2018-11-06 06:43 | Day surgery (SDC) | payer MEDICARE ==
[2018-11-01 12:34] VITALS: BMI 33.3
[~2018-11-06 06:43] MED LIST: Prevnar 13-Val Conj/PF 0.5 ML SYRINGE IM ONE
[2018-11-06] MEDS ORDERED: Heparin 1,000 UNITS/ML VIAL ONE (09:00)
[2018-11-06 11:50] VITALS: BP 90/69; TEMP 97.3
--- NOTE | 2018-11-06 12:44 | SPC ---
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 FLUOROSCOPY: Total fluoroscopy time is 3.3 minutes with a total dose of 21,347 mGy per cm2. TECHNIQUE: The procedure, including the risk and complications, was explained to the patient, and informed conse nt was obtained. The patient was placed on the angiography table in the supine position. The left u pper extremity was meticulously prepped and draped in the usual sterile fashion. A limited ultrasoun d was performed of the fistula, which demonstrated flow throughout the visualized fistula in the left upper extremity. The left upper extremity was meticulously prepped and draped in the usual sterile fashion. The skin and subcutaneous tissues were infiltrated with buffered 1% Lidocaine for local anesthesia at the inte nded puncture site. The left upper extremity arteriovenous dialysis fistula was accessed, directed i n the arterial direction, and a 5 Turkish introducer sheath was placed. A fistulogram and venogram to the SVC was performed. There were suggested focal areas of narrowing just proximal and distal to a stent within the region of the proximal left upper extremity. However, these areas did not necessari ly appear to be flow limiting, although these areas did demonstrate narrowing. Manual compression was applied to the venous outflow, and contrast was injected to reflux the arterio venous anastomosis. The fistula was then accessed, directed in the venous direction, and a 5 Turkish vascular sheath was p laced. A 6 mm x 4 cm angioplasty balloon was placed over a 0.035 inch Bentson guidewire, and angiopl asty was performed in the areas of apparent narrowing within the venous outflow, just proximal and di stal to the stent within the venous outflow. The balloon easily achieved full profile. The angiopla sty balloon was removed, and follow-up fistulogram demonstrated good flow throughout the fistula. Al though the areas did appear to demonstrate persistent narrowing, there was good flow seen throughout the fistula. Given adequate flow throughout this region, a larger caliber angioplasty balloon was no t placed at this time. Each catheter was removed, and hemostasis was achieved with direct pressure. The patient tolerated t he procedure well and without immediate complication. The patient's blood pressure was diminished th roughout the study with a systolic blood pressure of 90 mmHg. The patient was monitored in the radiology holding area prior to further discharge, without complicat ion or bleeding. FINDINGS: Left upper extremity arteriovenous dialysis fistula with stent within the venous outflow. The arteri ovenous anastomotic is widely patent. There are apparent areas of narrowing just proximal and distal to the stent within the proximal left upper extremity; however, angioplasty with a 6 mm in diameter angioplasty balloon was performed in these areas, and the angioplasty balloon easily achieved full pr ofile. There did appear to be adequate and good washout of the fistula. The stent within the vascul ar outflow is widely patent. There is a filling defect seen adjacent to the distal portion of the tu nneled right internal jugular vein hemodialysis catheter, likely related to either a combination of f ibrin sheath or thrombus, due to catheter in place. However, there does appear to be adequate flow t hrough this region. IMPRESSION: 1. Patent arteriovenous anastomosis. 2. Stent in venous outflow, which is patent. Focal areas of narrowing seen proximal and distal to t he stent within the venous outflow. Angioplasty to 6 mm in diameter was performed with balloon achie ving full profile, and there was good washout on fistulogram. The above findings were discussed with Dr. Ruiz on 11/06/2018 at 1106 hours. CODE CR POS: [facility]
== END 2018-11-06 10:30 | disposition home or self-care (01) ==
LOC: SPEC 06:43
PROVIDERS: ATTEND Surgery
PROC: 05773ZZ Dilation of Right Axillary Vein, Percutaneous Approach (ICD-10-PCS; principal; 2018-11-06)
DX: T82.858A Stenosis of other vascular prosthetic devices, implants and grafts, initial encounter (principal); N18.6 End stage renal disease; Z79.899 Other long term (current) drug therapy; Z99.2 Dependence on renal dialysis
CPT/HCPCS: 36901; 36902; J1644